=== PATIENT | female | born 1950 | race Caucasian/White ===

== ENCOUNTER → 2017-11-04 10:50 | Outpatient (CLI) | payer MEDICARE, SELFPAY ==
--- NOTE | 2017-11-04 10:58 | XR_ITS ---
XR foot RT min 3V COMPARISON: None HISTORY: Pain in toes TECHNIQUE: AP lateral and oblique views FINDINGS: The tarsal bones metatarsals and phalanges appear intact with no evidence of recent or old fracture. The rather prominent plantar arch. There is spurring of the calcaneus both at the insertion of the Achilles tendon and plantar tendon IMPRESSION: Pes cavus along with calcaneal spurs is noted
== END ==
PROVIDERS: PCP Nurse Practitioner Family; Visit Provider Nurse Practitioner Family
DX: M79.674 Pain in right toe(s) (principal)
CPT/HCPCS: 73630

== ENCOUNTER → 2017-11-09 15:11 | Outpatient (CLI) | payer MEDICARE, SELFPAY ==
--- NOTE | 2017-11-09 15:23 | US_ITS ---
US Arterial Ankle Brachial Ind INDICATION: Nonhealing ulcer right toe, leg pain, wrist pain, claudication, smoker, hypertension ORDERING PHYSICIAN: Sabiha Adorno PATIENT AGE: 67 years TECHNIQUE: Segmental pressures obtained of both right and left leg. These are compared to brachial blood pressure to yield index at each level sampled including summary DIONY. The data sheets from the procedure are available in PACS FINDINGS Rest study only performed today No prior studies available for comparison. Blood pressures reported are in millimeters mercury. RIGHT LEG DIONY = 0.3. Right TBI equals 0.1 Brachial BP: 164 Thigh BP: 59 Calf BP: 50 Ankle PT: 43 Ankle DP : 34 Digit =21 LEFT LEG DIOYN = 0.6 Left TBI equals 0.4 Brachial BPD: 157 Thigh BP: 141 Calf BP: 99 Ankle PT:98 Ankle DP: 79 Digit = 68 Pulses and waveforms: Diminished waveforms and pulses bilaterally right more so than left IMPRESSION: Low ABIs bilaterally right more severe than left as well as low TBIs bilaterally right more severe than left consistent with severe atherosclerotic vascular disease. Suspect a stenosis of the right iliac artery or common femoral artery and stenosis on the left at the distal SFA or popliteal region. CT angiogram may confirm.
== END ==
PROVIDERS: Family Provider Internal Medicine Adolescent Medicine; PCP Nurse Practitioner Family; Visit Provider Nurse Practitioner Family
DX: I70.213 Atherosclerosis of native arteries of extremities with intermittent claudication, bilateral legs (principal)
CPT/HCPCS: 93922

== ENCOUNTER 2017-11-15 14:00 | Outpatient (RCR) | payer MEDICARE, SELFPAY | END 2017-11-15 14:01 | disposition home or self-care (01) | LOC: PT 14:00 | PROVIDERS: Family Provider Internal Medicine Adolescent Medicine; PCP Nurse Practitioner Family; Visit Provider Nurse Practitioner Family | DX: L97.511 Non-pressure chronic ulcer of other part of right foot limited to breakdown of skin (principal); M79.674 Pain in right toe(s) | CPT/HCPCS: 97161; 97597 ==

== ENCOUNTER 2017-11-22 07:22 | Day surgery (SDC) | payer MEDICARE, SELFPAY ==
[2017-11-22] VITALS (15 sets, daily range): BP systolic 115–190; BP diastolic 54–93; PULSE 70–100; RESP 16–24; TEMP 36.2; O2SAT 94–99; BMI 28.1
--- NOTE | 2017-11-22 07:09 | IR_ITS ---
CARDIAC CATHETERIZATION DATE OF CATHETERIZATION PROCEDURES: 1. Left heart catheterization 2. Left ventriculogram 3. Selective coronary angiogram 4. Catheter placement in the right renal artery 5. Right renal artery selective angiogram 6. Catheter placement in the left renal artery 7. Renal artery selective angiogram 8. Catheter placement in the abdominal aorta 9. Abdominal aortography 10. Bilateral iliofemoral angiography 11. Bare-metal stent deployment to the right common iliac artery 12. Post right common iliac artery stent deployment retrograde angiogram 13. Bare-metal stent deployment to the right renal artery 14. Post stent deployment catheter placement in the abdominal aorta 15. Abdominal aortography INDICATION FOR TEST: 1. Coronary artery disease 2. Angina pectoris 3. Peripheral artery disease 4. Abnormal ankle-brachial index 5. Renovascular hypertension 6. Renal artery stenosis 7. Right common iliac artery stenosis Informed consent was obtained prior to the procedure. COMPLICATIONS: None ESTIMATED BLOOD LOSS: Less than 10 ml. TECHNIQUE: One percent lidocaine used to anesthetize the right groin. The right femoral artery was accessed via the Seldinger technique and a 4 Ugandan sheath was placed in the right femoral artery. A JL 4 JR4 catheter were used to perform left heart catheterization left ventriculogram as well as selective renal angiography. At the end of the diagnostic angiogram the therapeutic dose of heparin was administered intravenously and a 7 Ugandan sheath was placed in the right femoral artery. An 8 mm x 29 mm bare-metal Kennedy stent was deployed reducing the stenosis. An additional 10 mm x 19 mm Herculink stent was then placed at the ostium of the right common iliac artery and deployed. Post stent deployment angioplasty was also performed After achieving excellent angiographic results a short 7 Ugandan JACK catheter was used intubate the right renal artery while a 6.5 x 15 mm Herculink stent was deployed at 15 macrina reducing the severe stenosis to 0%. Following the revascularization the pigtail catheter was placed back into the abdominal aorta and abdominal aortography with bilateral iliofemoral angiography was performed. At the end of the procedure the apparatus was removed the groin is reprepped closure changed sheath was removed good hemostasis was achieved using Perclose device patient transferred the postop holding area in stable condition ANGIOGRAPHIC RESULTS: 1. The left main artery has a distal 20-30% stenosis 2. The left anterior descending artery has proximal 20% stenoses mid vessel 60-70% tandem stenosis at a tortuous bend followed by an additional 60% stenosis in the mid segment. 3. The circumflex artery is a large vessel and has an ostial 50% calcified stenosis. The vessel is very tortuous. The first obtuse marginal artery has mid vessel 60-70% stenoses and distal 70-80% stenoses and a bifurcating vessel and proximally 1 mm diameter. The terminal obtuse marginal artery has a proximal 50% followed by a distal 70-80% stenosis 4. The right coronary artery is a nondominant vessel and has proximal 80% stenoses and a distal 80% stenosis in an area that is 2.25 mm in diameter. The entire right coronary artery is a small caliber vessel 5. The ELLIOTT ventriculogram reveals normal 65% with inferior wall hypokinesis 6. The left ventricular end-diastolic pressure 15 mmHg 7. The right renal artery is singular and has a complex proximal eccentric 50% stenosis followed by what appears to be an active thrombus creating a 90% stenosis. Distally the renal arteries are small in caliber in side the parenchyma and have a vasculopathic appearance 8. The left renal artery singular and has a proximal 80% concentric stenosis. Distally the ve
--- NOTE | 2017-11-22 07:24 | CA_ITS ---
PROCEDURE: 2-D M-mode and color Doppler study INDICATIONS FOR THE TEST: Chest pain COPD Heart Murmur Tobacco SmokingX Palpitations Fatigue Syncope EdemaX Hypertension Diabetes MellitusX Rheumatic Fever SOB WADE Obesity Hyperlipidemia Family History HDX Additional History ABN EKG PATIENT INFORMATION HEIGHT: 62 WEIGHT:157 GENDER: Female B/P:166/76 2-D/M-MODE INTERPRETATION: 2-D MEASUREMENTS OBSERVED VALUES IN CMS Right Ventricular Dimension (RVDd) 1.5 Interventricular Septum (Thickness)(IVsd) 1.0 Left Ventricular Internal Dimensions(LVIDd) 5.5 Left Ventricular Posterior Wall (Thickness)(LVPWd) 1.0 Aortic Root 2.6 Aortic Cusp Separation 1.6 Left Atrial Dimensions (LAD) 2.4 2D 1. Left atrium is normal size, left ventricle is normal size, there is no concentric left ventricular hypertrophy, visually estimated ejection fraction 55% with no obvious regional wall motion abnormality. 2. The right atrium and right ventricle are normal size and contractility. 3. The aortic valve is minimally thickened and fibrosed. 4. The mitral and tricuspid valvular grossly normal. 5. The pulmonic valve is poorly visualized. 6. No significant pericardial effusion noted. DOPPLER INTERROGATION: Doppler interrogation of the aortic, mitral and tricuspid valvular presence of mild mitral and tricuspid regurgitation, tricuspid and jet velocity insufficient for calculation of the right ventricular systolic pressure, diastolic parameters are inconclusive. CONCLUSION: 1. Normal left ventricular size, preserved left ventricular systolic function, visually estimated ejection fraction 55% with no obvious regional wall motion abnormality, diastolic parameters are inconclusive. 2. Mild mitral and tricuspid regurgitation 3. No significant pericardial effusion noted.
[2017-11-22 08:49] LABS: Blood Urea Nitrogen 53 mg/dL (7-18); Carbon Dioxide 20 mmol/L (21.0-32.0); Chloride 107 mmol/L (98-107); Creatinine Clearance Estimated 35 mL/min (0-300); Creatinine,Serum 1.75 mg/dL (0.55-1.02); Estimated Glomerular Filt Rate 29 ml/min (>60); GFR (African American) 35 ML/MIN (>60); Glucose 122 mg/dL (74-106); Sodium 142 mmol/L (136-145)
[2017-11-22 08:51] LABS: Basophils % 0.2 % (0.1-2.0); Eosinophils # 0.2 K/mm3 (0.0-0.4); Eosinophils % 1.4 % (0.1-12.0); Hematocrit 29.7 % (37.0-47.0); Hemoglobin 9.5 g/dL (12.2-16.2); Lymphocytes # 1.6 K/mm3 (0.7-4.5); Lymphocytes % 13.1 K/mm3 (10-50); Mean Corpuscular HGB Conc 31.9 g/dL (31.8-35.4); Mean Corpuscular Hemoglobin 31.1 pg (27.0-31.2); Mean Corpuscular Volume 97.5 fl (81-99); Mean Platelet Volume 8.5 fl (7.4-10.4); Monocytes # 0.4 K/mm3 (0.1-1.0); Monocytes % 3.4 % (1.7-9.3); Neutrophils # 10.3 K/mm3 (1.8-7.8); Neutrophils % 81.9 % (37.0-80.0); Platelet Count 236 K/mm3 (142-424); Red Blood Count 3.04 M/mm3 (4.20-5.40); Red Cell Distribution Width 14.5 % (11.5-17.5); White Blood Count 12.6 K/mm3 (4.8-10.8)
[2017-11-22 14:26] LABS: CATHL Activated Clotting Time 234 SEC (74-125)
[2017-11-22 14:26] LABS: CATHL Activated Clotting Time 250 SEC (74-125)
== END 2017-11-22 14:17 | disposition home or self-care (01) ==
PROVIDERS: Family Provider Internal Medicine Adolescent Medicine; PCP Nurse Practitioner Family; Visit Provider Internal Medicine
DX: I70.211 Atherosclerosis of native arteries of extremities with intermittent claudication, right leg (principal); E11.621 Type 2 diabetes mellitus with foot ulcer; I87.1 Compression of vein; L97.519 Non-pressure chronic ulcer of other part of right foot with unspecified severity; E11.42 Type 2 diabetes mellitus with diabetic polyneuropathy; Z82.49 Family history of ischemic heart disease and other diseases of the circulatory system; Z72.0 Tobacco use; I10 Essential (primary) hypertension; I70.223 Atherosclerosis of native arteries of extremities with rest pain, bilateral legs; I25.10 Atherosclerotic heart disease of native coronary artery without angina pectoris; M79.89 Other specified soft tissue disorders
CPT/HCPCS: 36252; 37221; 37236; 75630; 75716; 80048; 85025; 85347; 93306; 93458; 99152; 99153; C1725; C1760; C1769; C1876; C1894; J1644; Q9966; Q9967

== ENCOUNTER → 2017-11-23 08:09 | Outpatient (CLI) | payer MEDICARE, SELFPAY ==
[2017-11-23 10:53] LABS: Anion Gap 19.1 mEq/L (5-15); Blood Urea Nitrogen 41 mg/dL (7-18); Carbon Dioxide 19 mmol/L (21.0-32.0); Chloride 108 mmol/L (98-107); Creatinine,Serum 1.78 mg/dL (0.55-1.02); Estimated Glomerular Filt Rate 29 ml/min (>60); GFR (African American) 35 ML/MIN (>60); Glucose 190 mg/dL (74-106); Potassium 4.1 mmoL/L (3.5-5.1); Sodium 142 mmol/L (136-145)
== END ==
PROVIDERS: Visit Provider Nurse Practitioner Family
DX: Z95.820 Peripheral vascular angioplasty status with implants and grafts (principal)
CPT/HCPCS: 36415; 80048

== ENCOUNTER → 2017-11-24 08:50 | Outpatient (CLI) | payer MEDICARE, SELFPAY ==
--- NOTE | 2017-11-24 14:01 | HMH.ANESCL ---
[facility] Anesthesia Checklist - Patient Identification Patient Identification: Arm Band - Structural Data Admitted From: Home Planned Operative Procedure/s: right 4th and 5th toe amputation Consent for Planned Operative Procedure(s) Verified: Yes Verified Documents: Surgical Consent, History and Physical - NPO Status Verified Time NPO: 00:00 - Additional verifications Anesthesia Reactions: No - Airway Assessment C-Spine Mobility Assessed: Yes (mp1) TMJ Mobility Assessed: Yes Dentition: Edentulous - Neurological Assessment Level of Consciousness: Awake, Alert - Anesthesia Plan Anesthesia Risk discussed: Yes Anesthesia Plan: Verified ASA Class: III Anesthesia Type: MAC [facility] Anesthesia HX I have reviewed the patient's past medical history: Yes Medical History: Reports:: Diabetes Mellitus Type 2, Hypertension, Peripheral Artery Disease Denies:: Cancer, Diabetes Mellitus Type 1, Internal Pacemaker, MRSA, Seizures Other Medical History: Reports: Sinus Problems Laterality Cases: Right: Arthroscopy Shoulder, Total Hip Replacement Other Surgeries: No: Pacemaker Amputation: No Fractures: No *Family Hx:: Diabetes, Hyperlipidemia, Hypertension
--- OUTSIDE RECORDS SUMMARY | 2025-01-07 15:12 | XMS_ITS | Referral Summary ---
Author Organization [employer] Address [address] [place] [address] Care Team Providers Care Water Pump Installer Name Role Phone Ethan Lewis MD Primary Care Provider [phone] Allergies No known active allergies Medications insulin glargine (LANTUS, SEMGLEE) 100 unit/mL injection Inject 14 Units subcutaneously nightly Use as directed . Active atorvastatin (LIPITOR) 80 MG tablet Take 80 mg by mouth nightly . Active aspirin 81 MG EC tablet Take 81 mg by mouth daily. Active losartan (COZAAR) 50 MG tablet Take 50 mg by mouth daily. Active metoprolol succinate (TOPROL-XL) 25 MG 24 hr tablet Take 25 mg by mouth daily. Active clopidogreL (PLAVIX) 75 mg tablet Take 75 mg by mouth daily. Active Active Problems Problem Noted Date Diagnosed Date Acute renal failure (ARF) 07/04/2022 Sepsis with multi-organ dysfunction 07/03/2022 Diabetes mellitus COPD (chronic obstructive pulmonary disease) CHF (congestive heart failure) Hx of CABG Overview (07/03/2022): x3 History of atrial flutter Renal insufficiency Acute renal failure with oliguria Social History Tobacco Use Types Packs/Day Years Used Date Smoking Tobacco: Unknown PRAPARE - Transportation Answer Date Re corded In the past 12 months, has l ack of transportation kept you from medical appointments or from getting medications? No 07/11/2022 Lack of Transportation (Non-Medical) Not on file 07/11/2022 Housing Stability Vital Sign Answer Josué e Recorded In the last 12 months, was t here a time when you were not able to pay the mortgage or rent on time? No 07/11/2022 In the last 12 months, how many places have you lived? Not on file 07/11/2022 In the last 12 months, was t here a time when you did not have a steady place to sleep or slept in a retirement (including now)? 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 Gender Identity Not on file Sexual Orientation Not on file Last Filed Vital Signs Vital Sign Reading Time Taken Comments Blood Pressure 37/15 07/16/2022 2:02 AM EST Pulse 0 07/16/2022 3:45 AM EST Temperature 36.2 C (97.2 F) 07/15/2022 4:00 AM EST Respiratory Rate 12 07/16/2022 3:45 AM EST Oxygen Saturation 82% 07/16/2022 3:15 AM EST Inhaled Oxygen Concentration 40% 07/15/2022 1 2:15 PM EST Weight 84 kg (185 lb 3 oz) 07/14/2022 4:00 AM ES T Height 157.5 cm (5' 2 ) 07/03/2022 12:00 AM EST Body Mass Index 33.87 07/03/2022 12:00 AM EST Plan of Treatment Not on [place] [address] [place] [address] PPO MAP Advance Directives For more information, please contact: [phone] * DNR - Comfort Measures (Latest Code Status on File) Date Activated Date Inactivated Comments 07/15/2022 10:33 AM 07/16/2022 9:00 AM If no pul se: NO intervention If has pulse: NO Intubation, NO Chest Compressions, NO Cardioversion, NO ACLS meds; relieve pain and suffering with medications by any route. Call attending or palliative care for comfort orders. * DNR - Full Scope of Treatment Date Activated Date Inactivated Comments 07/09/2022 10:45 AM 07/15/2022 10:30 AM If no pul se: NO intervention If has pulse: Use intubation, mechanical ventilation, defibrillation, ACLS medications, or cardioversion as indicated. Call HIDE COOKING OPERATOR * Full Code Date Activated Date Inactivated Comments 07/03/2022 12:13 AM 07/09/2022 10:44 AM Care Teams Water Pump Installer Relationship Specialty Start Date End Date Ethan Lewis MD [address] [facility] [place] [address] PCP - General Adolescent Medicine 07/02/22
--- OUTSIDE RECORDS SUMMARY | 2025-01-07 15:12 | XMS_ITS | Clinical Summary ---
Author Organization [employer] Address [address] [place] [address] Care Team Providers Care Eap Specialist Name Role Phone Ethan Lewis MD Primary Care Provider [phone] Allergies No known active allergies Medications insulin [...] place to sleep or slept in a fci (including now)? 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 Call STREET LIGHT WIRER * Full Code Date Activated Date Inactivated Comments 07/03/2022 12:13 AM 07/09/2022 10:44 AM Care Teams Eap Specialist Relationship Specialty Start Date End Date Ethan Lewis MD [address] [facility] [place] [address] PCP - General Adolescent Medicine 07/02/22
--- OUTSIDE RECORDS SUMMARY | 2025-01-07 15:12 | XMS_ITS | Clinical Summary ---
Author Organization [facility] Address [address] [place] [address] Phone Care Team Providers Care Consumer Education Specialist Name Role Phone Unavailable Unavailable Conditions or Problems No information available. Medications No information available. Medications Administered No information available. Allergies, Adverse Reactions, Alerts No information available. Results No information available. Plan of Care No information available. Procedures No information available. Vital Signs No information available. Immunizations No information available. Advance Directives No information available.
--- OUTSIDE RECORDS SUMMARY | 2025-01-07 15:12 | XMS_ITS | Clinical Summary ---
Author Organization Healthcare [place] [facility] [place] [address] Care Team Providers Care Preventive Maintenance Engineer Name Role Phone Sabiha Adorno PAMELLA Primary Care Provider [phone] Family History Medical History Relation Name Comments Conversions - Other Brother 1 CAD (cor onary artery disease), habematolel coronary artery Diabetes Brother 2 Pneumonia Father Diabetes Mother Diabetes Sister 1 Menorrhagia Sister 2 Relation Name Status Comments Brother 1 Brother 2 Father Mother Sister 1 Sister 2 Social History Tobacco Use Types Packs/Day Years Used Date Smoking Tobacco: Former Alcohol Use Standard Drinks/Week Comments No 0 (1 standard drink = 0.6 oz pur e alcohol) Comments Unknown Sex and Gender Information Value Date Recorded Sex Assigned at Not on file Legal Sex Female 6:54 PM EDT Gender Identity Not on file Sexual Orientation Not on file Last Filed Vital Signs Vital Sign Reading Time Taken Comments Blood Pressure 147/54 02/28/2019 2:20 PM EDT Pulse 68 02/28/2019 2:20 PM EDT Temperature - - Respiratory Rate - - Oxygen Saturation - - Inhaled Oxygen Concentration - - Weight 67.2 kg (148 lb 3.1 oz) 02/28/2019 2:20 P M EDT Height 157.5 cm (5' 2 ) 08/17/2018 9:28 AM EST Body Mass Index 27.1 08/17/2018 9:28 AM EST Plan of Treatment Not on file Insurance [employer] Care Teams Preventive Maintenance Engineer Relationship Specialty Start Date End Date Sabiha Adorno APRN [address] [place] [address] PCP - General 12/12/20
--- OUTSIDE RECORDS SUMMARY | 2025-01-07 15:12 | XMS_ITS | Data Portability ---
Author Organization [facility] [employer] [place] [facility] Address [address] [place] [address] Assessment No assessment recorded. Plan of Treatment Reminders Order Date Submit Date Provider Last Modified By Organization Details Last Modified Time Details Appointments None record ed. Lab None record ed. Referral None record ed. Procedures None record ed. Surgeries None record ed. Imaging None record ed. Medication Orders None record ed. Patient TargetsNo targets recorded. Patient InstructionsNo instructions recorded. Reason for Referral None Reported. Problems Name Problem SNOMED Code Status Onset Date Resolution Date Notes Provider Name and Address Organization Details Recorded Time Megalobl astic anemia 01665827 Completed 201704/29/2018 Problem Code: D53.1; Problem Code Type: ICD-10; Not Available [facility] 2 22:40:39 Anemia of chronic disease 481368870 Active 2017 Problem Code: D63.8; Problem Code Type: ICD-10; Not Available [facility] 2 22:40:39 Iron deficien cy anemia secondar y to inadequa te dietary iron intake 492343760 Completed 201704/29/2018 Problem Code: D50.8; Problem Code Type: ICD-10; Not Available [facility] 2 22:40:39 Secondar y diabetes mellitus 0151078 Completed 201711/10/2017 Problem Code: E08.59; Problem Code Type: ICD-10; Not Available [facility] 2 22:40:39 Foot ulcer due to type 2 diabetes mellitus 84706895065 00 Completed 201611/10/2017 Problem Code: E11.621; Problem Code Type: ICD-10; Not Available [facility] 2 22:40:39 Uncontro lled type 2 diabetes mellitus 095762176 Completed 201604/27/2017 Not Available [facility] 2 22:40:40 Mixed hyperlip idemia 821503017 Active 2017 Problem Code: E78.2; Problem Code Type: ICD-10; Not Available [facility] 2 22:40:40 Hyperten sive disorder 89296363 Active 2016 Problem Code: I10; Problem Code Type: ICD-10; Not Available [facility] 2 22:40:40 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 077238396 Completed 201711/08/2017 Problem Code: I70.219; Problem Code Type: ICD-10; Not Available [facility] 2 22:40:40 Pain in right foot 02329789661 9107 Completed 201703/31/2020 Problem Code: M79.671; Problem Code Type: ICD-10; Not Available [facility] 2 22:40:40 Pain in toe 233928827 Completed 201703/31/2020 Not Available [facility] 2 22:40:40 Pain in toe 773988868 Completed 201703/31/2020 Not Available [facility] 2 22:40:41 Chronic kidney disease stage 1 260882049 Active 2017 Problem Code: N18.1; Problem Code Type: ICD-10; Not Available [facility] 2 22:40:41 Chronic kidney disease stage 3 515194967 Completed 201703/30/2018 ABO43Iwl es: 'N18.3'; Not Available [facility] 2 22:40:41 Acute cystitis 76195295 Completed 201604/20/2017 Problem Code: N30.00; Problem Code Type: ICD-10; Not Available [facility] 2 22:40:41 Urinary tract infectio us disease 85343446 Completed 201706/20/2018 Problem Code: N39.0; Problem Code Type: ICD-10; Not Available [facility] 2 22:40:41 Acute cystitis 47395779 Completed 201704/13/2018 Problem Code: N30.00; Problem Code Type: ICD-10; Not Available [facility] 2 22:40:41 Acute cystitis 09802732 Completed 201705/23/2018 Problem Code: N30.00; Problem Code Type: ICD-10; Not Available [facility] 2 22:40:41 Urinary tract infectio us disease 36217303 Active 2019 Problem Code: N39.0; Problem Code Type: ICD-10; Not Available [facility] 2 22:40:41 Urinary tract infectio us disease 09246328 Completed 201903/31/2020 Problem Code: N39.0; Problem Code Type: ICD-10; Not Available [facility] 2 22:40:41 Dysuria 58765715 Active 2019 Problem Code: R30.0; Problem Code Type: ICD-10; Not Available [facility] 2 22:40:42 Dysuria 92027373 Completed 201707/21/2018 Problem Code: R30.0; Problem Code Type: ICD-10; Not Available [facility] 2 22:40:42 Dysuria 36270495 Completed 201903/31/2020 Problem Code: R30.0; Problem Code Type: ICD-10; Not Available [facility] 2 22:40:42 Endocrin e/metabo lic screenin g Completed 201606/26/2017 Problem Code: Z13.228; Problem Code Type: ICD-10; Not Available [facility] 2 22:40:42 Influenz a vaccine needed 00497975287 Completed 201803/31/2020 Problem Code: Z23; Problem Code Type: ICD-10; Not Available [facility] 2 22:40:42 Influenz a vaccine needed 25152301702 Active 2020 Problem Code: Z23; Problem Code Type: ICD-10; Not Available [facility] 2 22:40:43 Acute cystitis 37443574 Completed 201706/23/2018 Problem Code: N30.00; Problem Code Type: ICD-10; Not Available [facility] 2 22:40:44 Atherosc lerosis of arteries of the extremit ies 75195460 Completed 201711/10/2017 Not Available [facility] 2 22:40:44 Benign essentia l hyperten dilshad 3238620 Completed 201604/27/2017 Problem Code: 401.1; Problem Code Type: ICD-9; Not Available [facility] 2 22:40:44 Dysuria 93009741 Completed 201903/31/2020 Problem Code: R30.0; Problem Code Type: ICD-10; Not Available [facility] 2 22:40:45 Gangreno us disorder 396023337 Completed 201711/10/2017 Problem Code: 785.4; Problem Code Type: ICD-9; Not Available [facility] 2 22:40:45 Traumati c amputati on of toe 96540446 Completed 201705/29/2018 Problem Code: 895.0; Problem Code Type: ICD-9; Not Available [facility] 2 22:40:45 Traumati c amputati on, multiple toes 705043802 Completed 201705/29/2018 Problem Code: S98.211S ; Problem Code Type: ICD-10; Not Available [facility] 2 22:40:46 Thyroid disorder screenin g Completed 201606/26/2017 Problem Code: V77.0; Problem Code Type: ICD-9; Not Available [facility] 2 22:40:46 Thyroid disorder screenin g Completed 201603/20/2017 Problem Code: V77.0; Problem Code Type: ICD-9; Not Available [facility] 2 22:40:46 Endocrin e/metabo lic screenin g Completed 201603/20/2017 Problem Code: Z13.29; Problem Code Type: ICD-10; [facility] Notes:*Problem Name: 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 Procedures Surgical History Date Name Laterality Status Provider Name and Address Organization Details Recorded Time 09/01/19 19 Int jaci art used for cabg completed Not Available [facility] 04/06/2022 22:56:07 01/20/20 17 hysterectomy completed Not Available [facility] 022 22:56:09 Imaging Results None recorded. Procedure Notes None recorded. Medical Equipment None Reported. Medications Name Sig Start Date Stop Date Status Note LastModified by Organization Details LastModified Time atorvastati n 40 mg tablet Take 1 tablet(s) by mouth daily 12/19 completed Not Available Not Available Not Available Keflex 500 mg capsule 2 po bid 01/03 completed Not Available Not Available Not Available lisinopril 20 mg tablet Take 1 tablet by mouth daily 08/17 completed Not Available Not Available Not Available Pyridium 100 mg tablet one by mouth every 8 hours 08/08 completed Not Available Not Available Not Available Lantus U-100 Insulin 100 unit/mL subcutaneou s solution 20 units [facility] 06/26 completed Not Available Not Available Not Available Plavix 75 mg tablet take 1 tablet (75 mg) by oral route once daily 2019 active Not Available Not Available Not Avai lable ciprofloxac in 500 mg tablet take 1 tablet (500 mg) by oral route 2 times per day 2019 active Not Available Not Available Not Avai lable sulfamethox azole 800 mg-trimetho prim 160 mg tablet take 1 tablet by oral route every 12 hours for 14 days 03/31 completed Not Available Not Available Not Available fenofibrate micronized 200 mg capsule one po q hs 12/19 completed Not Available Not Available Not Available tramadol 50 mg tablet 1 po q 6 hours prn 01/03 completed Not Available Not Available Not Available Silvadene 1 % topical cream Apply sufficien t amount to affected area bid 01/03 completed Not Available Not Available Not Available Diflucan 100 mg tablet one po today and again in 5 days and when the antibioti c is finished. 07/21 completed Not Available Not Available Not Available ferrous sulfate 325 mg (65 mg iron) tablet Take 1 tablet BID 09/26 completed Not Available Not Available Not Available lisinopril 10 mg tablet Take 1 tablet(s) by mouth daily 10/27 completed Not Available Not Available Not Available folic acid 1 mg tablet Take 1 tablet(s) by mouth daily 09/26 completed Not Available Not Available Not Available Aspir-81 mg tablet,timmy yed release take 1 tablet (81 mg) by oral route once daily 2019 active Not Available Not Available Not Avai lable ibuprofen 600 mg tablet 1 po daily 05/09 completed Not Available Not Available Not Available Norvasc 1/2 of 50 mg daily 2019 active Not Available Not Available Not Avai lable Lantus U-100 Insulin 2019 active Not Available Not Available Not Avai lable metoprolol tartrate (bulk) 2019 active Not Available Not Available Not Avai lable Insulin Syringe 1 mL 29 gauge x 1/2 use qhs in administe ring insulin 06/18 completed Not Available Not Available Not Available Basaglemile KwikPen U-100 Insulin 100 unit/mL (3 mL) subcutaneou s 20 units SQ QHS 11/28 completed Not Available Not Available Not Available Vitals None Recorded Social History None recorded. Functional Status None recorded. Mental Status None recorded. Family History Relationship Description Onset Age of this Age Resolved Age Notes LastModified by Organization Details LastModified Time Unspecified Relation Family history of Myocardial infarction Relati ve: ''; [email or web address] Not available 04/06/2022 23:04:06 Notes:*Procedure Description : Documented family medical history in son*Relative: Son Medical History Condition Response Diabetes Y Kidney Disease Y Gynecological HistoryNo gynecological history recorded. Obstetrics History GPAL:G 0 P 0 0 0 0 Immunizations Vaccine Type Date Status Note Provider Nam e and Address Organization Details Recorded Time Influenza, split virus, quadrivalent, preservative 8 completed Not Available [facility] 04/07/2022 00:03:40 Influenza, split virus, quadrivalent, PF 1 completed Not Available [facility] 04/07/2022 00:03:40 Influenza, split virus, trivalent, preservative 7 completed Not Available [facility] 04/07/2022 00:03:40 Influenza, MDCK, quadrivalent, PF 0 completed Not Available [facility] 04/07/2022 00:03:40 Influenza, MDCK, quadrivalent, preservative 9 completed Not Available [facility] 04/07/2022 00:03:40 Influenza, split virus, quadrivalent, PF 2 completed JACK tse [facility] [employer] [facility] 06/11/2022 11:24:04 Past Encounters Encounter ID Performer Location Encounter Start Date Encounter Closed Date Diagnosis/Indication Diagnosis SNOMED-CT Code Diagnosis ICD10 Code Diagnosis Note [id number] Ashia Hare[address] [address] 06/11/2022 11:02:57 06/11/2022 11:31:19 Administration of influenza vaccine 39357832 Z23 Health Concerns Section Related Observation LastModified by Organization Detai ls LastModified Time None Recorded Concern Status LastModified by Organization Details LastModified Time None Recorded Advance Directives Directive None Recorded Payers Insurance Date Sequence Insurance Name Policy Number Policy Pierce Covered Member ID Pierce Member ID Guarantor Name 08/27/2022 1 [place]MEDICARE REPLACEMENT HMO) [id number] Tammy Mauro [id number] Tammy Mauro OBGyn Episode No OBEpisode recorded.
--- OUTSIDE RECORDS SUMMARY | 2025-01-07 15:12 | XMS_ITS | Encounter Summary ---
Author Organization Healthcare Address [address] [place] [address] Care Team Providers Care Occ Ther Name Role Phone Sabiha Adorno APRN Primary Care Provider [phone] Encounter Details Date Type Department Care Team (Late st Contact Info) Description 07/10/2022 Lab Requisition [facility] [address] [place] [address] Encounter for general adult medical examination without abnormal findings Social History Tobacco Use Types Packs/Day Years Used Date Smoking Tobacco: Former Alcohol Use Standard Drinks/Week Comments No 0 (1 standard drink = 0.6 oz pur e alcohol) Comments Unknown Sex and Gender Information Value Date Recorded Sex Assigned at Not on file Legal Sex Female 6:54 PM EDT Gender Identity Not on file Sexual Orientation Not on file documented as of this encounter Plan of Treatment Not on file documented as of this encounter Visit Diagnoses Diagnosis Encounter for general adult medical examination without abnormal findings documented in this encounter Care Teams Occ Ther Relationship Specialty Start Date End Date Sabiha Adorno APRN [address] [place], [place] [id number] PCP - General 12/12/20 documented as of this encounter
== END ==
LOC: LAB 01-07 15:10
PROVIDERS: PCP Podiatrist; Visit Provider Podiatrist
DX: Y99.9 Unspecified external cause status (principal)
CPT/HCPCS: 87070; 87205

== ENCOUNTER → 2017-12-08 13:33 | Outpatient (CLI) | payer MEDICARE, SELFPAY ==
--- NOTE | 2017-12-08 13:34 | XR_ITS ---
XR foot wt bearing RT 3V HISTORY: Follow-up amputation ITS.REASON: STATUS POST FOOT SURGERY ORDERING PHYSICIAN: Ethel Mcqueen DPM PATIENT AGE: 67 years COMPARISON: 11/24/2017 FINDINGS: Status post mid metatarsal amputation of the fourth and fifth metatarsals. No bony erosive process evident. There is a prominent calcaneal spur 13 mm. No soft tissue gas or other significant anomalies. Mild osteoarthritic changes are present first metatarsophalangeal joint. IMPRESSION: No change status post mid metatarsal amputation at the fourth and fifth metatarsals
[2017-12-08 14:44] LABS: Basophils # 0.1 K/mm3 (0-0.2); Basophils % 0.7 % (0.1-2.0); Eosinophils # 0.6 K/mm3 (0.0-0.4); Eosinophils % 7.4 % (0.1-12.0); Hematocrit 33.4 % (37.0-47.0); Lymphocytes # 2.2 K/mm3 (0.7-4.5); Lymphocytes % 29.6 K/mm3 (10-50); Mean Corpuscular HGB Conc 32.8 g/dL (31.8-35.4); Mean Corpuscular Hemoglobin 31.9 pg (27.0-31.2); Mean Corpuscular Volume 97.1 fl (81-99); Mean Platelet Volume 7.8 fl (7.4-10.4); Monocytes # 0.3 K/mm3 (0.1-1.0); Monocytes % 4.1 % (1.7-9.3); Neutrophils # 4.4 K/mm3 (1.8-7.8); Neutrophils % 58.2 % (37.0-80.0); Platelet Count 318 K/mm3 (142-424); Red Blood Count 3.44 M/mm3 (4.20-5.40); Red Cell Distribution Width 13.7 % (11.5-17.5); White Blood Count 7.5 K/mm3 (4.8-10.8)
[2017-12-08 16:55] LABS: Erythrocyte Sedimentation Rate 81 mm/hr (0-30)
[2017-12-08 17:20] LABS: Alanine Aminotransferase 16 U/L (12-78); Albumin Level 3.2 gm/dL (3.4-5.0); Albumin/Globulin Ratio 0.8 (1.1-1.8); Alkaline Phosphatase 96 U/L (46-116); Anion Gap 11.1 mEq/L (5-15); Aspartate Amino Transferase 18 U/L (15-37); Bilirubin,Total 0.1 mg/dL (0.2-1.0); Blood Urea Nitrogen 27 mg/dL (7-18); C-Reactive Protein 0.4 mg/L (0.0-0.9); Calcium 8.8 mg/dL (8.5-10.1); Carbon Dioxide 29 mmol/L (21.0-32.0); Chloride 104 mmol/L (98-107); Creatinine,Serum 1.48 mg/dL (0.55-1.02); Estimated Glomerular Filt Rate 35 ml/min (>60); GFR (African American) 43 ML/MIN (>60); Glucose 236 mg/dL (74-106); Potassium 4.1 mmoL/L (3.5-5.1); Sodium 140 mmol/L (136-145); Total Protein,Serum 7.2 gm/dL (6.4-8.2)
[2017-12-08 17:26] LABS: Hemoglobin A1C 7.3 % (0.0-7.0)
== END ==
PROVIDERS: Visit Provider Podiatrist
DX: E11.69 Type 2 diabetes mellitus with other specified complication (principal); M86.9 Osteomyelitis, unspecified; Z98.890 Other specified postprocedural states
CPT/HCPCS: 36415; 73630; 80053; 83036; 85025; 85651; 86140

== ENCOUNTER → 2017-12-28 06:36 | Outpatient (CLI) | payer MEDICARE, SELFPAY ==
--- NOTE | 2017-12-28 06:43 | NM_ITS ---
CARDIOLITE SPECT MYOCARDIAL PERFUSION SCAN, REST AND STRESS: EXERCISE STRESS [facility] REVIEW QGS EF AND WALL MOTION EVALUATION: QPS - PERFUSION EVALUATION HISTORY: CAD, SOA DOSE: 10.34 mCi technetium 99m mibi intravenously at rest followed by 29.8 mCi technetium 99m mibi following the intravenous ministration of 0.4 mg of Lexiscan. Resting blood pressure is 146/72. Stress blood pressure 180/90. FINDINGS: Ejection fraction is calculated to be 68. Stress images reveal decreased activity in a portion of the lateral wall which appears to normalize with rest. Gated images calculated ejection fraction of 68% with normal wall motion. IMPRESSION: Reversible ischemia in the lateral wall. Normal ejection fraction normal wall motion. Moderate risk stress test
--- NOTE | 2017-12-28 07:50 | HMH.ITSHM ---
BLOOD PRESSURE MED IBUPROFEN ANTIBIOTIC INSULIN
--- NOTE | 2017-12-28 09:24 | HMH.ITSHM ---
blood pressure med ibuprofin antibiotic insulin
== END ==
PROVIDERS: Family Provider Internal Medicine Adolescent Medicine; Visit Provider Internal Medicine
DX: R06.02 Shortness of breath (principal); I25.10 Atherosclerotic heart disease of native coronary artery without angina pectoris; R00.0 Tachycardia, unspecified; R94.31 Abnormal electrocardiogram [ECG] [EKG]
CPT/HCPCS: 78452; 93017; A9502; J2785

== ENCOUNTER → 2018-01-12 11:09 | Outpatient (CLI) | payer MEDICARE, SELFPAY ==
[2018-01-12 12:34] LABS: Erythrocyte Sedimentation Rate 116 mm/hr (0-30)
[2018-01-12 13:04] LABS: Alanine Aminotransferase 13 U/L (12-78); Albumin/Globulin Ratio 0.8 (1.1-1.8); Alkaline Phosphatase 122 U/L (46-116); Anion Gap 14.8 mEq/L (5-15); Aspartate Amino Transferase 18 U/L (15-37); Bilirubin,Total 0.3 mg/dL (0.2-1.0); Blood Urea Nitrogen 20 mg/dL (7-18); C-Reactive Protein 3.5 mg/L (0.0-0.9); Calcium 8.9 mg/dL (8.5-10.1); Carbon Dioxide 24 mmol/L (21.0-32.0); Chloride 110 mmol/L (98-107); Estimated Glomerular Filt Rate 28 ml/min (>60); GFR (African American) 34 ML/MIN (>60); Globulin 3.7 gm/dl (1.3-3.2); Glucose 106 mg/dL (74-106); Potassium 3.8 mmoL/L (3.5-5.1); Sodium 145 mmol/L (136-145); Total Protein,Serum 6.7 gm/dL (6.4-8.2)
== END ==
PROVIDERS: Visit Provider Podiatrist
DX: Z98.890 Other specified postprocedural states (principal); E11.8 Type 2 diabetes mellitus with unspecified complications
CPT/HCPCS: 36415; 80053; 85651; 86140; 97605

== ENCOUNTER → 2018-01-16 09:31 | Outpatient (CLI) | payer MEDICARE, SELFPAY ==
--- NOTE | 2018-01-16 09:34 | MR_ITS ---
MR foot RT wo con HISTORY: Recent amputation of the fourth and fifth toes. Evaluate for osteomyelitis in this patient was scheduled skin graft to be performed ITS.REASON: rule out osteomyelitis ORDERING PHYSICIAN: Ethel Mcqueen DPM PATIENT AGE: 67 years Comparison: 12/08/2017 TECHNIQUE: Standard multiplanar multiecho sequences are performed without contrast. Gadolinium was not utilized secondary to patient's impaired renal function FINDINGS: There has been amputation of the mid shaft of the fourth and fifth metatarsals. No abscess or fistulous tract is evident. There is very slight increased T2 signal at the distal stomach above the fifth metatarsal. There is slight increased T1 and T2 signal at the distal stump of the fourth metatarsal not having a typical appearance for osteomyelitis. No other significant anomalies are evident. IMPRESSION: Status post amputation at the mid shaft of the fourth and fifth metatarsals. There is very slight increased T2 signal at the distal aspect of the fifth metatarsal stump. This area is very small area of question clinical significance and could very well be reactive/inflammatory in nature from the recent amputation. Unfortunately, osteomyelitis cannot be excluded based on the imaging findings
== END ==
PROVIDERS: Family Provider Internal Medicine Adolescent Medicine; PCP Nurse Practitioner Family; Visit Provider Podiatrist
DX: I96 Gangrene, not elsewhere classified (principal); I73.9 Peripheral vascular disease, unspecified; M86.9 Osteomyelitis, unspecified
CPT/HCPCS: 73718; 97605

== ENCOUNTER → 2018-02-10 09:12 | Outpatient (CLI) | payer MEDICARE, SELFPAY ==
--- NOTE | 2018-02-10 | CI_ITS ---
Cerebrovascular Exam Indications: 780.4 Dizziness and giddiness. IMPRESSIONS 1. The bilateral vertebral arteries are patent with normal antegrade flow. 2. Study suggests 20-49% stenosis involving the right internal carotid artery and the left internal carotid artery, upper end of scale. Carotid duplex study. Complete study and Doppler flow study including spectral analysis, color and virk scale imaging. Height: Height: 157.5cm. Height: 62in. Weight: Weight: 68.9kg. Weight: 151.7lb. Body mass index: BMI: 27.8kg/m^2. Body surface area: BSA: 1.76m^2. Location: Vascular laboratory. Patient status: Outpatient. Tables: Arterial flow: + +--------+--------+ Location V sys V ed + +--------+--------+ Right CCA - proximal 105cm/s 14.9cm/s + +--------+--------+ Right CCA - distal 64cm/s 15.4cm/s + +--------+--------+ Right ECA 148cm/s -------- + +--------+--------+ Right ICA - proximal 106cm/s 25.3cm/s + +--------+--------+ Right ICA - mid 117cm/s 25.3cm/s + +--------+--------+ Right ICA - distal 131cm/s 37.5cm/s + +--------+--------+ Right vertebral 62.9cm/s -------- + +--------+--------+ Left CCA - proximal 102cm/s 18.3cm/s + +--------+--------+ Left CCA - distal 88.2cm/s 22.7cm/s + +--------+--------+ Left ECA 93.7cm/s -------- + +--------+--------+ Left ICA - proximal 78.6cm/s 23.6cm/s + +--------+--------+ Left ICA - mid 93cm/s 30.8cm/s + +--------+--------+ Left ICA - distal 88cm/s 29.5cm/s + +--------+--------+ Left vertebral 69.8cm/s -------- + +--------+--------+ Velocity ratios: + + + + + + Right, V sys Right, V ed Left, V sys Left, V ed + + + + + + Max ICA/dist CCA 2.05 2.44 1.05 1.36 + + + + + + (Report amended ) Electronically signed by: Ziggy Ruiz [id number]
== END ==
PROVIDERS: Family Provider Internal Medicine Adolescent Medicine; PCP Nurse Practitioner Family; Visit Provider Thoracic Surgery (Cardiothoracic Vascular Surgery)
DX: R42 Dizziness and giddiness (principal)
CPT/HCPCS: 93880

== ENCOUNTER → 2018-03-13 08:54 | Outpatient (CLI) | payer MEDICARE, SELFPAY ==
--- NOTE | 2018-03-13 08:56 | XR_ITS ---
XR clavicle RT HISTORY: Follow-up clavicle fracture ITS.REASON: RT clavicle fracture ORDERING PHYSICIAN: Earl Hudson MD PATIENT AGE: 67 years COMPARISON: 02/27/2018 FINDINGS: Comminuted mildly impacted distal clavicular fracture is once again noted as previously described haven't somewhat smooth margins. There is superior displacement of the distal fracture fragment x 7 mm. Postsurgical changes right proximal humerus. IMPRESSION: Overall no change impacted and mildly displaced distal clavicular fracture.
== END ==
PROVIDERS: PCP Nurse Practitioner Family; Visit Provider Orthopaedic Surgery
DX: S42.001A Fracture of unspecified part of right clavicle, initial encounter for closed fracture (principal)
CPT/HCPCS: 73000

== ENCOUNTER → 2018-03-22 09:48 | Outpatient (CLI) | payer MEDICARE, OTHER, SELFPAY ==
--- NOTE | 2018-03-22 09:51 | XR_ITS ---
XR clavicle RT HISTORY: Follow-up fracture ITS.REASON: follow up ORDERING PHYSICIAN: Juma Lundberg MD PATIENT AGE: 67 years COMPARISON: 03/13/2018 FINDINGS: Impacted distal clavicular fracture present. The distal fracture fragment is also displaced superiorly x 7 mm. Acromioclavicular joint is unremarkable. There has been prior ORIF of the proximal humerus with an intramedullary rito and multiple screws with osteoarthritic change of the glenohumeral joint. IMPRESSION: Overall no change in impacted distal radial fracture with mild displacement of the distal fracture fragment
== END ==
PROVIDERS: PCP Nurse Practitioner Family; Visit Provider Orthopaedic Surgery
DX: S42.001A Fracture of unspecified part of right clavicle, initial encounter for closed fracture (principal)
CPT/HCPCS: 73000

== ENCOUNTER 2018-04-04 09:00 | Outpatient (RCR) | payer MEDICARE, SELFPAY ==
--- NOTE | 2018-03-24 09:16 | HMH.OTOPEV ---
OT Inpatient Evaluation Rehab OT Outpatient Eval Start: 03/24/18 09:03 Freq: Status: Active Protocol: Document 03/24/18 09:03 TFRY (Rec: 03/24/18 09:15 TFRY [id number]) Electronically Signed By Kassidy Montana OT 03/24/18 09:03 Outpatient Therapy Subjective History Subjective History THIS IS A 67 YEAR OLD RIGHT HANDED FEMALE REFERRED TO OCCUPATIONAL THERAPY FOR RIGHT CLAVICLE FRACTURE. PATIENT REPORTS SHE FELL January AT WHICH TIME SHE BROKE HER CLAVICLE. SHE REPORTS THAT SHE FELL IN 2011 AND BROKE HER SHOULDER AND HAS HAD LIMITED ROM IN THAT SHOULDER SINCE THAT INJURY. Chief Complaint Pain Symptom Type Dull Symptoms Relieved By Rest/Positioning Symptoms Aggravated By Physical Activity Prior Functional Limitations None Current Functional Limitations None Level of pain today (0-10) 0 Pain scale - at its best (0-10) 0 Pain scale - at its worst (0-10) 2 Shoulder/Elbow Eval Shoulder Objective Measurements Shoulder ROM Right Shoulder ROM Limitations Bony Restriction Shoulder Abduction Passive Range of 60 Motion (degrees) Shoulder Flexion Passive Range of Motion 75 (degrees) Shoulder External Rotation Passive Range 45 of Motion (degrees) Shoulder Internal Rotation Passive Range 0 of Motion (degrees) decreased ROM shoulder exam standard right Shoulder MMT Shoulder Strength Reason Not Measured Orthopedic Precautions Elbow Objective Measurements OT Outpatient Assessment Impairments Problems/Impairments Impaired Range of Motion Impaired Strength Prognosis Rehab Potential Fair Clinical Impression Consistent with Diagnosis Yes Short Term Goals Number of Weeks 3 Increase Range of Motion Yes: AROM TO BE THE SAME PROM IN SHOULDER Increase Strength Yes: RIGHT SHOULDER STRENGTH TO 3/5 THROUGHOUT Patient to be Ind w/ HEP Yes Patient to be Ind w/ Advanced HEP Yes Warehouse Assistant Goals Number of Weeks 6 Increase Range of Motion Yes: RIGHT SHOULDER AROM TO EQUAL PROM Increase Strength Yes: RIGHT SHOULDER STRENGTH TO 4-/5 Patient to be Ind w/ HEP Yes Patient to be Ind w/ Advanced HEP Yes Outpatient Therapy Plan of Care Treatment Plan May Include Therapeutic Exercise Including Home Yes Exercise
== END 2018-04-04 09:01 | disposition home or self-care (01) ==
LOC: OT 09:00
PROVIDERS: Family Provider Internal Medicine Adolescent Medicine; PCP Nurse Practitioner Family; Visit Provider Orthopaedic Surgery
DX: S42.001A Fracture of unspecified part of right clavicle, initial encounter for closed fracture (principal)
CPT/HCPCS: 97110; 97140; 97165; 97530

== ENCOUNTER → 2018-04-13 08:45 | Outpatient (CLI) | payer MEDICARE, SELFPAY ==
--- NOTE | 2018-04-13 08:50 | XR_ITS ---
XR clavicle RT HISTORY: Follow-up fracture ITS.REASON: right clavicle fx ORDERING PHYSICIAN: Juma Lundberg MD PATIENT AGE: 67 years COMPARISON: 03/22/2018 FINDINGS: No change impacted fracture of the distal aspect of the clavicle with superior displacement of the distal fracture fragment x 9 mm not significant change. Severe subacromial stenosis noted. Prior ORIF right proximal humerus with osteoarthritic changes of the glenohumeral joint. IMPRESSION: No change healing displaced distal clavicular fracture
== END ==
PROVIDERS: PCP Nurse Practitioner Family; Visit Provider Orthopaedic Surgery
DX: S42.001A Fracture of unspecified part of right clavicle, initial encounter for closed fracture (principal)
CPT/HCPCS: 73000

== ENCOUNTER → 2018-04-14 09:41 | Outpatient (POV) | payer MEDICARE, SELFPAY | PROVIDERS: Family Provider Internal Medicine Adolescent Medicine; PCP Nurse Practitioner Family; Visit Provider Podiatrist | DX: Z00.00 Encounter for general adult medical examination without abnormal findings (principal) ==

== ENCOUNTER 2018-04-24 09:00 | Outpatient (RCR) | payer MEDICARE, SELFPAY ==
--- NOTE | 2018-01-02 10:48 | HMH.PTOPWND ---
Rehab Outpt Wound Evaluation Rehab OP Wound Evaluation Start: 01/02/18 10:38 Freq: Status: Active Protocol: Document 01/02/18 10:38 PWANA (Rec: 01/02/18 10:47 [id number]) Electronically Signed By Mich Wills, PT 01/02/18 10:38 Subjective/History History History This is the initial outpatient wound care evaluation for Tammy Mauro. Pt is a 67 y /o female referred to wound care for dressing change and monitoring of wound vac s/p 4th/5th R toe amputation. Pt reports toe amputation was ~ 6 weeks ago. Subjective Subjective Pt rpeorts some TTP at wound bed. Wound Eval Wound Right Lateral Distal Foot Wound Type Amputation Is This a Chronic Wound Yes Wound Length (cm) 6.5 Wound Width (cm) 2.0 Wound Bed Appearance Yellow Percentage of Slough (%) 100 Percentage of Eschar (Yellow) (%) 100 Wound Margins Description Well Defined Surrounding Tissue Appearance [place]point Surrounding Tissue Temperature Warm Drainage Amount None Drainage Odor No Odor Dressing Status Changed Packing Type Woundvac Sponge Primary Dressing woundvac Dressing Change Date 01/02/18 Dressing Change Patient Tolerance Tolerated Well Drain Right Lateral Distal Foot Drain Type Woundvac Odor None/Absent Vacuum Pressure Setting (mmHg) 120 Vacuum Mode Setting Continuous Eval Complexity Eval Charge Codes 52534 - Low Complexity Wound Problems/Impairments Impairments Problems/Impairmments Wound Care Needs Subjective C/O Pain Impaired Self Care/Self Management Prognosis Rehab Potential Poor Comment Pt has very poor circulation and is scheduled for more surgical debridement Clinical Impression Consistent with Diagnosis Yes Short Term Goals Number of Weeks 4 Decrease Yellow/White Slough % 50% Increase Red Granulation Tissue % Yes: 50% Dairy Scientist Goals Number of Weeks 8 Decrease Wound Area Yes: 50% Decrease Yellow/White Slough % Yes: 0 Increase Red Granulation Tissue % Yes: 100 Outpatient Therapy Plan of Care Treatment Plan May Include Wound Care Yes Group Th
== END 2018-04-24 09:01 | disposition home or self-care (01) ==
LOC: PT 09:00
PROVIDERS: Family Provider Internal Medicine Adolescent Medicine; Visit Provider Podiatrist
DX: M86.271 Subacute osteomyelitis, right ankle and foot (principal)
CPT/HCPCS: 97161; 97597; 97605

== ENCOUNTER → 2018-05-05 08:53 | Outpatient (CLI) | payer MEDICARE, SELFPAY ==
--- NOTE | 2018-05-05 08:56 | XR_ITS ---
XR clavicle RT HISTORY: ITS.REASON: follow up rt clavicle fx ORDERING PHYSICIAN: Juma Lundberg MD PATIENT AGE: 67 years COMPARISON: 04/13/2018 FINDINGS: Nondisplaced impacted distal clavicle fracture once again noted. There remains lucency at the fracture site. There is however callus formation inferiorly. Postsurgical changes of proximal right humerus. IMPRESSION: Good alignment healing distal clavicular fracture
== END ==
PROVIDERS: PCP Nurse Practitioner Family; Visit Provider Orthopaedic Surgery
DX: S42.001A Fracture of unspecified part of right clavicle, initial encounter for closed fracture (principal)
CPT/HCPCS: 73000

== ENCOUNTER → 2018-08-07 14:23 | Outpatient (POV) | payer MEDICARE, OTHER, SELFPAY | PROVIDERS: Visit Provider Internal Medicine Nephrology | DX: Z00.00 Encounter for general adult medical examination without abnormal findings (principal) ==

== ENCOUNTER → 2018-08-15 08:20 | Outpatient (CLI) | payer MEDICARE, OTHER, SELFPAY ==
--- NOTE | 2018-08-15 08:23 | CA_ITS ---
PROCEDURE: 2-D M-mode and color Doppler study INDICATIONS FOR THE TEST: Chest pain COPD Heart Murmur Tobacco Smoking Palpitations Fatigue Syncope Edema Hypertension+Diabetes Mellitus+ Rheumatic Fever SOB WADE Obesity Hyperlipidemia+ Family History HD Additional History a-fib,cad, cabg a few wks ago PATIENT INFORMATION HEIGHT: 62 WEIGHT:144 GENDER: Female B/P:182/75 2-D/M-MODE INTERPRETATION: 2-D MEASUREMENTS OBSERVED VALUES IN CMS Right Ventricular Dimension (RVDd) 0.9 Interventricular Septum (Thickness)(IVsd) 1.0 Left Ventricular Internal Dimensions(LVIDd) 6.2 Left Ventricular Posterior Wall (Thickness)(LVPWd) 0.7 Aortic Root 2.6 Aortic Cusp Separation 1.8 Left Atrial Dimensions (LAD) 4.3 2D 1. Left atrium is mildly enlarged, left ventricle is mildly dilated, there is mild concentric left ventricular hypertrophy, visually estimated ejection fraction 50%, there is moderate hypokinesis involving the basal septum, inferobasal and inferior wall. 2. The right atrium and right ventricle are normal size and contractility. 3. The aortic valve is thickened and calcified leaflet continue to display mobility. 4. The mitral and tricuspid valve leaflets are minimally thickened. 5. The pulmonic valve is poorly visualized. 6. No significant pericardial effusion noted. DOPPLER INTERROGATION: Doppler interrogation of the aortic, mitral and tricuspid valvular presence of mild mitral and tricuspid regurgitation, tricuspid regurgitation jet velocity is inadequate for calculation of the right ventricular systolic pressure, grade 1 diastolic dysfunction seen with tissue Doppler evidence of raised left atrial pressure. CONCLUSION: 1. Mildly enlarged left atrium, mildly enlarged right ventricle, mild concentric left ventricular hypertrophy, visually estimated ejection fraction 50% with segmental motion abnormality described above, grade 1 diastolic dysfunction seen with tissue Doppler evidence of raised left atrial pressure. 2. Mild mitral and tricuspid regurgitation 3. No significant pericardial effusion noted.
[2018-08-15 09:53] LABS: Basophils % 0.4 % (0.1-2.0); Eosinophils # 0.4 K/mm3 (0.0-0.4); Eosinophils % 4.3 % (0.1-12.0); Hematocrit 33.1 % (37.0-47.0); Hemoglobin 10.2 g/dL (12.2-16.2); Lymphocytes # 1.8 K/mm3 (0.7-4.5); Lymphocytes % 20.3 % (10-50); Mean Corpuscular HGB Conc 30.8 g/dL (31.8-35.4); Mean Corpuscular Hemoglobin 30.2 pg (27.0-31.2); Mean Corpuscular Volume 97.8 fl (81-99); Mean Platelet Volume 7.5 fl (7.4-10.4); Monocytes # 0.4 K/mm3 (0.1-1.0); Monocytes % 4.4 % (1.7-9.3); Neutrophils # 6.2 K/mm3 (1.8-7.8); Neutrophils % 70.5 % (37.0-80.0); Platelet Count 273 K/mm3 (142-424); Red Blood Count 3.39 M/mm3 (4.20-5.40); Red Cell Distribution Width 15.8 % (11.5-17.5); White Blood Count 8.8 K/mm3 (4.8-10.8)
[2018-08-15 11:19] LABS: Alanine Aminotransferase 17 U/L (12-78); Albumin Level 3.3 gm/dL (3.4-5.0); Alkaline Phosphatase 144 U/L (46-116); Anion Gap 17.2 mEq/L (5-15); Aspartate Amino Transferase 11 U/L (15-37); Bilirubin,Direct 0.1 mg/dL (0.0-0.2); Bilirubin,Indirect 0.3 mg/dL (0.0-0.9); Bilirubin,Total 0.4 mg/dL (0.2-1.0); Blood Urea Nitrogen 32 mg/dL (7-18); Calcium 9.1 mg/dL (8.5-10.1); Carbon Dioxide 23 mmol/L (21.0-32.0); Chloride 106 mmol/L (98-107); Chol/HDL Ratio 4.9 (1-3.5); Cholesterol 151 mg/dL (140-200); Creatinine,Serum 1.93 mg/dL (0.55-1.02); Estimated Glomerular Filt Rate 26 ml/min (>60); Free T4 (Free Thyroxine) 1.23 ng/dl (0.76-1.46); GFR (African American) 31 ML/MIN (>60); Glucose 135 mg/dL (74-106); HDL Cholesterol 31 mg/dL (29-89); LDL Cholesterol 89 mg/dL (0-130); Potassium 4.2 mmoL/L (3.5-5.1); Sodium 142 mmol/L (136-145); Thyroid Stimulating Hormone 2.29 uIU/ml (0.358-3.740); Total Protein,Serum 7.2 gm/dL (6.4-8.2); Triglycerides 157 mg/dL (30-200); VLDL Cholesterol 31 mg/dL (0-40)
== END ==
PROVIDERS: PCP Nurse Practitioner Family; Visit Provider Internal Medicine Cardiovascular Disease
DX: E11.9 Type 2 diabetes mellitus without complications (principal); E78.5 Hyperlipidemia, unspecified; I11.9 Hypertensive heart disease without heart failure; I25.10 Atherosclerotic heart disease of native coronary artery without angina pectoris; I48.91 Unspecified atrial fibrillation; I73.9 Peripheral vascular disease, unspecified; Z95.1 Presence of aortocoronary bypass graft; N18.9 Chronic kidney disease, unspecified; I50.9 Heart failure, unspecified
CPT/HCPCS: 36415; 80048; 80061; 80076; 84439; 84443; 85025; 93306

== ENCOUNTER 2018-08-29 08:39 | Outpatient (RCR) | payer MEDICARE, SELFPAY | END 2018-10-25 08:56 | disposition home or self-care (01) | LOC: PT 08:39 | PROVIDERS: Visit Provider Internal Medicine Cardiovascular Disease | DX: Z95.1 Presence of aortocoronary bypass graft (principal); I25.10 Atherosclerotic heart disease of native coronary artery without angina pectoris; I73.9 Peripheral vascular disease, unspecified | CPT/HCPCS: 93798 ==

== ENCOUNTER → 2018-09-22 07:03 | Outpatient (CLI) | payer MEDICARE, SELFPAY ==
[2018-09-22 08:01] LABS: Basophils # 0.1 K/mm3 (0-0.2); Basophils % 0.7 % (0.1-2.0); Eosinophils # 0.6 K/mm3 (0.0-0.4); Eosinophils % 8.5 % (0.1-12.0); Hematocrit 36.1 % (37.0-47.0); Hemoglobin 11.4 g/dL (12.2-16.2); Lymphocytes # 1.6 K/mm3 (0.7-4.5); Lymphocytes % 23.4 % (10-50); Mean Corpuscular HGB Conc 31.5 g/dL (31.8-35.4); Mean Corpuscular Hemoglobin 29.8 pg (27.0-31.2); Mean Corpuscular Volume 94.5 fl (81-99); Mean Platelet Volume 7.5 fl (7.4-10.4); Monocytes # 0.3 K/mm3 (0.1-1.0); Monocytes % 4.4 % (1.7-9.3); Neutrophils # 4.3 K/mm3 (1.8-7.8); Platelet Count 249 K/mm3 (142-424); Red Blood Count 3.82 M/mm3 (4.20-5.40); Red Cell Distribution Width 14.8 % (11.5-17.5); White Blood Count 6.8 K/mm3 (4.8-10.8)
[2018-09-22 08:50] LABS: Alanine Aminotransferase 18 U/L (12-78); Albumin Level 3.7 gm/dL (3.4-5.0); Albumin/Globulin Ratio 0.9 (1.1-1.8); Alkaline Phosphatase 120 U/L (46-116); Anion Gap 12.9 mEq/L (5-15); Aspartate Amino Transferase 14 U/L (15-37); Bilirubin,Total 0.3 mg/dL (0.2-1.0); Blood Urea Nitrogen 27 mg/dL (7-18); Calcium 9.1 mg/dL (8.5-10.1); Carbon Dioxide 26 mmol/L (21.0-32.0); Chloride 106 mmol/L (98-107); Chol/HDL Ratio 6.1 (1-3.5); Cholesterol 209 mg/dL (140-200); Creatinine,Serum 1.72 mg/dL (0.55-1.02); Estimated Glomerular Filt Rate 30 ml/min (>60); GFR (African American) 36 ML/MIN (>60); Globulin 3.9 gm/dl (1.3-3.2); Glucose 108 mg/dL (74-106); HDL Cholesterol 34 mg/dL (29-89); LDL Cholesterol 130 mg/dL (0-130); Potassium 3.9 mmoL/L (3.5-5.1); Sodium 141 mmol/L (136-145); Thyroid Stimulating Hormone 4.35 uIU/ml (0.358-3.740); Total Protein,Serum 7.6 gm/dL (6.4-8.2); Triglycerides 224 mg/dL (30-200); VLDL Cholesterol 45 mg/dL (0-40)
[2018-09-22 09:04] LABS: Hemoglobin A1C 7.1 % (0.0-7.0)
== END ==
PROVIDERS: Visit Provider Internal Medicine Adolescent Medicine
DX: I10 Essential (primary) hypertension (principal); E11.9 Type 2 diabetes mellitus without complications; Z79.4 Long term (current) use of insulin
CPT/HCPCS: 36415; 80053; 80061; 83036; 84443; 85025

== ENCOUNTER → 2018-10-16 10:35 | Outpatient (CLI) | payer MEDICARE, SELFPAY ==
[2018-10-16 13:50] LABS: Basophils % 0.2 % (0.1-2.0); Eosinophils % 25.7 % (0.1-12.0); Hematocrit 33.5 % (37.0-47.0); Hemoglobin 10.4 g/dL (12.2-16.2); Lymphocytes # 1.5 K/mm3 (0.7-4.5); Lymphocytes % 19.1 % (10-50); Mean Corpuscular HGB Conc 31.1 g/dL (31.8-35.4); Mean Corpuscular Hemoglobin 29.6 pg (27.0-31.2); Mean Corpuscular Volume 95.1 fl (81-99); Mean Platelet Volume 8.2 fl (7.4-10.4); Monocytes # 0.3 K/mm3 (0.1-1.0); Monocytes % 3.9 % (1.7-9.3); Neutrophils # 3.9 K/mm3 (1.8-7.8); Neutrophils % 51.2 % (37.0-80.0); Platelet Count 247 K/mm3 (142-424); Red Blood Count 3.53 M/mm3 (4.20-5.40); Red Cell Distribution Width 14.9 % (11.5-17.5); White Blood Count 7.7 K/mm3 (4.8-10.8)
[2018-10-16 14:12] LABS: Alanine Aminotransferase 18 U/L (12-78); Albumin Level 3.1 gm/dL (3.4-5.0); Albumin/Globulin Ratio 0.9 (1.1-1.8); Alkaline Phosphatase 135 U/L (46-116); Anion Gap 16.4 mEq/L (5-15); Aspartate Amino Transferase 15 U/L (15-37); Bilirubin,Total 0.3 mg/dL (0.2-1.0); Blood Urea Nitrogen 36 mg/dL (7-18); Calcium 8.4 mg/dL (8.5-10.1); Carbon Dioxide 20 mmol/L (21.0-32.0); Chloride 107 mmol/L (98-107); Creatinine,Serum 2.43 mg/dL (0.55-1.02); Estimated Glomerular Filt Rate 20 ml/min (>60); GFR (African American) 24 ML/MIN (>60); Globulin 3.5 gm/dl (1.3-3.2); Glucose 359 mg/dL (74-106); Potassium 4.4 mmoL/L (3.5-5.1); Sodium 139 mmol/L (136-145); Total Protein,Serum 6.6 gm/dL (6.4-8.2)
== END ==
PROVIDERS: PCP Internal Medicine Adolescent Medicine; Visit Provider Internal Medicine Adolescent Medicine
DX: I10 Essential (primary) hypertension (principal); E11.9 Type 2 diabetes mellitus without complications; Z79.4 Long term (current) use of insulin
CPT/HCPCS: 36415; 80053; 85025

== ENCOUNTER → 2019-02-28 08:47 | Outpatient (POV) | payer MEDICARE, SELFPAY ==
[2019-02-28 08:50] LABS: Microscopic, Urine URINE MICROSCOPIC (MICROSCOPIC)
[2019-02-28 09:32] LABS: Bilirubin,Urine Negative (Negative); Blood, Urine TRACE-I (Negative); Color,Urine YELLOW (Yellow); Glucose,Urine (UA) Negative (Negative); Ketones,Urine Negative (Negative); Leukocyte Esterase,Urine 3+ (Negative); Nitrate,Urine POSITIVE (Negative); PH,Urine 5.5 (5.0-8.5); Protein,Urine 1+ (Negative); Specific Gravity, Urine 1.025 (1.005-1.030); Urobilinogen,Urine 0.2 EU/dl (0.2)
[2019-02-28 09:41] LABS: Appearance,Urine Cloudy (Clear)
[2019-02-28 09:57] LABS: Bacteria,Urine 4+ /lpf; WBC,Urine TNTC #/hpf (0-3)
[2019-02-28 09:58] LABS: Creatinine,Urine Random 74 mg/dL (20-320); Total Protein,Urine Random 157.9 mg/dL (0.0-11.9)
[2019-02-28 11:14] LABS: Basophils % 0.5 % (0.1-2.0); Eosinophils # 0.3 K/mm3 (0.0-0.4); Eosinophils % 3.4 % (0.1-12.0); Hematocrit 35.4 % (37.0-47.0); Hemoglobin 10.9 g/dL (12.2-16.2); Lymphocytes # 1.4 K/mm3 (0.7-4.5); Lymphocytes % 16.4 % (10-50); Mean Corpuscular HGB Conc 30.9 g/dL (31.8-35.4); Mean Corpuscular Hemoglobin 29.4 pg (27.0-31.2); Mean Corpuscular Volume 95.4 fl (81-99); Monocytes # 0.4 K/mm3 (0.1-1.0); Neutrophils # 6.2 K/mm3 (1.8-7.8); Neutrophils % 74.7 % (37.0-80.0); Platelet Count 236 K/mm3 (142-424); Red Blood Count 3.71 M/mm3 (4.20-5.40); Red Cell Distribution Width 14.8 % (11.5-17.5); White Blood Count 8.4 K/mm3 (4.8-10.8)
[2019-02-28 12:11] LABS: Albumin Level 3.3 gm/dL (3.4-5.0); Anion Gap 15.1 mEq/L (5-15); Blood Urea Nitrogen 32 mg/dL (7-18); Carbon Dioxide 21 mmol/L (21.0-32.0); Chloride 108 mmol/L (98-107); Creatinine,Serum 1.66 mg/dL (0.55-1.02); Estimated Glomerular Filt Rate 31 ml/min (>60); GFR (African American) 37 ML/MIN (>60); Glucose 140 mg/dL (74-106); Phosphorous 4.4 mg/dL (2.4-4.9); Potassium 4.1 mmoL/L (3.5-5.1); Sodium 140 mmol/L (136-145)
[2019-03-02 07:11] LABS: Parathyroid Hormone Intact 31 pg/mL (15-65)
== END ==
PROVIDERS: Visit Provider Internal Medicine Nephrology
DX: N17.9 Acute kidney failure, unspecified (principal); E55.9 Vitamin D deficiency, unspecified; R82.90 Unspecified abnormal findings in urine
CPT/HCPCS: 36415; 80069; 81001; 82570; 82652; 83970; 84155; 85025; 87086; 87088; 87186

== ENCOUNTER 2019-07-27 08:09 | Emergency (ER) | payer MEDICARE, OTHER, SELFPAY ==
[2019-07-27 08:24] VITALS: BP 147/62; PULSE 82; RESP 18; TEMP 36.6; O2SAT 95; BMI 28.0
--- NOTE | 2019-07-27 08:30 | XR_ITS ---
PROCEDURE: XR CHEST 2V CLINICAL HISTORY: COUGH, CONGESTION, FEVER COMPARISON: CXR1VP XR chest portable from 06/16/2018 CXR1VP XR chest portable from 06/27/2018 CXR2V XR chest 2V from 10/21/2018 FINDINGS: The cardiomediastinal silhouette and pulmonary vascularity are within normal limits. The lungs are clear without infiltrates, suspicious nodules, or pleural effusions. No acute bony abnormalities. IMPRESSION: No acute findings. Dictated by: Brody Rubi 07/27/2019 17:30 Electronically signed by Brody Rubi in [place] 07/27/2019 17:30
[2019-07-27 08:41] LABS: Basophils % 0.2 % (0.1-2.0); Eosinophils # 0.2 K/mm3 (0.0-0.4); Hematocrit 31.3 % (37.0-47.0); Hemoglobin 9.9 g/dL (12.2-16.2); Lymphocytes # 1.4 K/mm3 (0.7-4.5); Lymphocytes % 16.6 % (10-50); Mean Corpuscular HGB Conc 31.6 g/dL (31.8-35.4); Mean Corpuscular Hemoglobin 29.4 pg (27.0-31.2); Mean Corpuscular Volume 93.1 fl (81-99); Mean Platelet Volume 8.7 fl (7.4-10.4); Monocytes # 0.5 K/mm3 (0.1-1.0); Monocytes % 5.6 % (1.7-9.3); Neutrophils # 6.4 K/mm3 (1.8-7.8); Neutrophils % 75.6 % (37.0-80.0); Platelet Count 279 K/mm3 (142-424); Red Blood Count 3.36 M/mm3 (4.20-5.40); Red Cell Distribution Width 13.9 % (11.5-17.5); White Blood Count 8.5 K/mm3 (4.8-10.8)
[2019-07-27 08:54] LABS: Alanine Aminotransferase 15 U/L (12-78); Albumin Level 2.4 gm/dL (3.4-5.0); Albumin/Globulin Ratio 0.5 (1.1-1.8); Alkaline Phosphatase 210 U/L (46-116); Anion Gap 17.2 mEq/L (5-15); Aspartate Amino Transferase 18 U/L (15-37); Bilirubin,Total 0.2 mg/dL (0.2-1.0); Blood Urea Nitrogen 60 mg/dL (7-18); Calcium 8.7 mg/dL (8.5-10.1); Carbon Dioxide 18 mmol/L (21.0-32.0); Chloride 103 mmol/L (98-107); Creatinine Clearance Estimated 33 mL/min (50-200); Creatinine,Serum 1.79 mg/dL (0.55-1.02); Estimated Glomerular Filt Rate 28 ml/min (>60); GFR (African American) 34 ML/MIN (>60); Globulin 5.2 gm/dl (1.3-3.2); Glucose 163 mg/dL (74-106); Potassium 5.2 mmoL/L (3.5-5.1); Sodium 133 mmol/L (136-145); Total Protein,Serum 7.6 gm/dL (6.4-8.2)
[2019-07-27 08:57] LABS: Microscopic, Urine URINE MICROSCOPIC (MICROSCOPIC)
[2019-07-27 08:59] LABS: Appearance,Urine CLEAR (Clear); Bilirubin,Urine Negative (Negative); Blood, Urine 2+ (Negative); Color,Urine YELLOW (Yellow); Glucose,Urine (UA) Negative (Negative); Ketones,Urine Negative (Negative); Leukocyte Esterase,Urine 2+ (Negative); Nitrate,Urine POSITIVE (Negative); Protein,Urine 1+ (Negative); Urobilinogen,Urine 0.2 EU/dl (0.2)
[2019-07-27 09:25] LABS: Bacteria,Urine 2+ /lpf
--- NOTE | 2019-07-27 09:40 | HMH.EDGENADL ---
ED Disposition Clinical Impression: Dehydration, Urinary tract infection, Anemia, Renal insufficiency, Hyponatremia, Hyperkalemia, Elevated alkaline phosphatase level, Polyp of gallbladder Disposition: Home, Self-Care Condition on Discharge: Good Instructions: DI for Urinary Tract Infection (UTI), DI for Dehydration -- Adult Additional Instructions: Follow-up with primary care provider on Tuesday. Return to the emergency department immediately if symptoms are worse. Prescriptions: levoFLOXacin [Levaquin] 500 mg PO DAILY 5 Days #5 tab Transmission Status: Pending to [facility] Referrals: Ethan Lewis MD [Primary Care Provider] - Time of Disposition: 13:28 - Critical Care Critical Care Time: No Attestation: On 07/27/19, the high probability of a clinically significant, sudden or life threatening deterioration of the following system(s) required my full and direct attention, intervention and personal management. The time I documented below is in addition to time spent performing reported procedures but includes the following listed in this critical care notation. Medical Decision Making - Medical Records Medical records reviewed: Yes: I reviewed the patient's medical records. - Brennon Inquiry Pt receiving controlled substance: No Vital Signs: 07/27/19 08:24 Temperature 97.8 F Temperature Source Oral Pulse Rate [Left Radial] 82 Respiratory Rate 18 Blood Pressure [Left Arm] 147/62 H Blood Pressure Mean [Left Arm] 90 Blood Pressure Source [Left Arm] Automatic Cuff Blood Pressure Position [Left Arm] Sitting 02 Sat by Pulse Oximetry 95 Oxygen Delivery Method Room Air - Lab Data Lab results reviewed: Yes: I reviewed the patient's lab results. Lab Results 07/27/19 08:30: WBC 8.5, RBC 3.36 L, Hgb 9.9 L, Hct 31.3 L, MCV 93.1, MCH 29.4, MCHC 31.6 L, RDW 13.9, Plt Count 279, MPV 8.7, Neut % (Auto) 75.6, Lymph % (Auto) 16.6, [place] % (Auto) 5.6, Eos % (Auto) 2.0, Baso % (Auto) 0.2, Neut # (Auto) 6.4, Lymph # (Auto) 1.4, [place] # (Auto) 0.5, Eos # (Auto) 0.2, Baso # (Auto) 0.0 07/27/19 08:30: Sodium 133 L, Potassium 5.2 H, Chloride 103, Carbon Dioxide 18 L, Anion Gap 17.2 H, BUN 60 H, Creatinine 1.79 H, Estimated Creat Clear 33, Estimated GFR 28 L, Est GFR ( Amer) 34 L, Glucose 163 H, Calcium 8.7, Total Bilirubin 0.2, AST 18, ALT 15, Alkaline Phosphatase 210 H, Total Protein 7.6, Albumin 2.4 L, Globulin 5.2 H, Albumin/Globulin Ratio 0.5 L 07/27/19 08:30: Influenza Type A Ag Negative, Influenza Type B Ag Negative 07/27/19 08:30: Troponin I < 0.02 07/27/19 08:30: B-Natriuretic Peptide 923 H 07/27/19 08:52: Urine Color Yellow, Urine Appearance Clear, Urine pH 6.0, Ur Specific [place] 1.010, Urine Protein 1+, Urine Glucose (UA) Negative, Urine Ketones Negative, Urine Blood 2+, Urine Nitrate Positive, Urine Bilirubin Negative, Urine Urobilinogen 0.2, Ur Leukocyte Esterase 2+ A, Urine RBC 5-10, Urine WBC 10-20, Ur Squamous Epith Cells 5-10, Urine Bacteria 2+ Result diagrams: 07/27/19 08:30 07/27/19 08:30 Orders (Tests/Meds): ED MEDICATIONS Discontinued Medications Generic Name Dose Route Start Last Admin Trade Name Freq PRN Reason Stop Dose Admin Sodium Chloride 1,000 mls @ 999 mls/hr 07/27/19 11:30 07/27/19 11:23 Sod Chlor 0.9% 1000ml Bag IV 07/27/19 12:30 999 mls/hr .Q1H1M LUIS Administration ORDERS Category Date Time Status Chest XR 2 view (NOT portable) [XR chest 2V] Stat Exams 07/27/19 08:30 Taken US gallbladder Stat Exams 07/27/19 11:20 Taken Aldosterone Stat Lab 07/27/19 08:30 Received Urine Culture Stat Micro 07/27/19 08:52 Received - US Data US Images: Gallbladder ED US Reviewed: Yes: I have viewed radiologist's interpretation Preliminary Findings: Normal/NAD Findings Narrative: Polyp in gallbladder but no obstruction. - Physician Consults Physician Consulted: Dr. Carmichael for Dr. Anderson Time: 13:13 Reason -: Pt condition Comment/Response: Discussed manoj
--- NOTE | 2019-07-27 11:20 | US_ITS ---
PROCEDURE: US GALLBLADDER CLINICAL INDICATION: Abdominal pain, elevated alkaline phosphatase. COMPARISON: No exams were available for comparison FINDINGS: Pancreas: Unremarkable/Not well seen Liver: Unremarkable. There is appropriate direction of blood flow within a non dilated portal vein. Right kidney: Unremarkable appearing. No hydronephrosis. Gallbladder: Common bile duct is normal measuring 2.5 millimeters. There is a 10 millimeter mildly echogenic focus at the posterior wall of the gallbladder. This does not shadow. The gallbladder wall is normal and there is no pericholecystic fluid. IMPRESSION: Differential for the gallbladder finding would be focus of sludge, polyp or noncalcified stone. There is no acute inflammation. Dictated by: Brody Rubi 07/27/2019 16:47 Electronically signed by Brody Rubi in [place] 07/27/2019 16:47
[2019-07-27 11:47] LABS: Troponin I < 0.02 ng/ml (0.00-0.06)
--- NOTE | 2019-07-27 13:09 | PC.NURSE ---
speaking with dr khan
[2019-07-27 13:42] VITALS: BP 132/64; PULSE 81; RESP 16; TEMP 36.4; O2SAT 96
== END 2019-07-27 13:44 | disposition home or self-care (01) ==
PROVIDERS: Emergency Provider Emergency Medicine; PCP Internal Medicine Adolescent Medicine
DX: K82.4 Cholesterolosis of gallbladder (principal); E86.0 Dehydration; N39.0 Urinary tract infection, site not specified; D64.9 Anemia, unspecified; N28.9 Disorder of kidney and ureter, unspecified; E87.1 Hypo-osmolality and hyponatremia; E87.5 Hyperkalemia; I25.10 Atherosclerotic heart disease of native coronary artery without angina pectoris; E11.9 Type 2 diabetes mellitus without complications; I10 Essential (primary) hypertension; R06.02 Shortness of breath; Z95.1 Presence of aortocoronary bypass graft; Z87.891 Personal history of nicotine dependence; Z79.899 Other long term (current) drug therapy; Z90.79 Acquired absence of other genital organ(s); Z96.641 Presence of right artificial hip joint; Z96.642 Presence of left artificial hip joint
CPT/HCPCS: 71046; 76705; 80053; 81001; 82088; 83880; 84484; 85025; 87086; 87088; 87186; 87275; 87276; 96365; 99283

== ENCOUNTER → 2019-07-30 11:05 | Outpatient (CLI) | payer MEDICARE, SELFPAY ==
[2019-07-30 11:37] LABS: Basophils % 0.3 % (0.1-2.0); Eosinophils # 0.2 K/mm3 (0.0-0.4); Hematocrit 34.6 % (37.0-47.0); Hemoglobin 9.9 g/dL (12.2-16.2); Lymphocytes % 13.1 % (10-50); Mean Corpuscular HGB Conc 28.7 g/dL (31.8-35.4); Mean Corpuscular Hemoglobin 27.5 pg (27.0-31.2); Mean Corpuscular Volume 96.1 fl (81-99); Mean Platelet Volume 8.3 fl (7.4-10.4); Monocytes # 0.5 K/mm3 (0.1-1.0); Monocytes % 5.7 % (1.7-9.3); Neutrophils # 6.2 K/mm3 (1.8-7.8); Neutrophils % 78.9 % (37.0-80.0); Platelet Count 399 K/mm3 (142-424); Red Cell Distribution Width 14.6 % (11.5-17.5); White Blood Count 7.8 K/mm3 (4.8-10.8)
[2019-07-30 12:43] LABS: Alanine Aminotransferase 44 U/L (12-78); Albumin Level 2.5 gm/dL (3.4-5.0); Albumin/Globulin Ratio 0.6 (1.1-1.8); Alkaline Phosphatase 351 U/L (46-116); Aspartate Amino Transferase 63 U/L (15-37); Bilirubin,Total 0.3 mg/dL (0.2-1.0); Blood Urea Nitrogen 44 mg/dL (7-18); Calcium 8.6 mg/dL (8.5-10.1); Carbon Dioxide 17 mmol/L (21.0-32.0); Chloride 106 mmol/L (98-107); Creatinine,Serum 1.68 mg/dL (0.55-1.02); Estimated Glomerular Filt Rate 30 ml/min (>60); GFR (African American) 37 ML/MIN (>60); Globulin 4.3 gm/dl (1.3-3.2); Glucose 118 mg/dL (74-106); Sodium 139 mmol/L (136-145); Total Protein,Serum 6.8 gm/dL (6.4-8.2)
[2019-07-30 13:11] LABS: Hemoglobin A1C 8.7 % (0.0-7.0)
== END ==
PROVIDERS: Visit Provider Internal Medicine Adolescent Medicine
DX: E11.42 Type 2 diabetes mellitus with diabetic polyneuropathy (principal); Z79.4 Long term (current) use of insulin
CPT/HCPCS: 36415; 80053; 83036; 85025

== ENCOUNTER → 2020-08-20 14:33 | Outpatient (POV) | payer MEDICARE, SELFPAY | PROVIDERS: Visit Provider Internal Medicine Adolescent Medicine | DX: Z00.00 Encounter for general adult medical examination without abnormal findings (principal) ==

== ENCOUNTER → 2020-08-22 08:27 | Outpatient (CLI) | payer MEDICARE, SELFPAY ==
--- NOTE | 2020-08-22 08:30 | MM_ITS ---
PROCEDURE: MM DIG SCREENING MAMM BI W/CAD Digital Breast Tomosynthesis Included CLINICAL INDICATION: SCREENING There is no personal or family history of breast cancer. COMPARISON: MG DMSB DIG MAMM-SCREEN ARTUR from 12/20/2014 TECHNIQUE: Standard CC and MLO images and 3D Tomosynthesis was obtained. R2 CAD reviewed. FINDINGS: Ktsi-[id number] fibroglandular densities are seen throughout both breasts. There are few scattered benign-appearing microcalcifications in each breast. There is faint arterial calcification in each breast. There is no suspicious lesion in either breast and no no suspicious microcalcifications. IMPRESSION: Fibrofatty parenchyma with no suspicious lesions seen BI-RAD Category: 2 Benign Finding(s) FOLLOW-UP: 1YR 1 Year Follow-up (A letter has been sent to the patient regarding results of the study.) Dictated by: Dr. Alfredo Mirza MD 08/26/2020 12:45 Dr. Alfredo Mirza MD in [place] 08/26/2020 12:45
--- NOTE | 2020-08-22 08:31 | XR_ITS ---
PROCEDURE: XR DEXA AXIAL SKELETON CLINICAL HISTORY: POST MENOPAUSAL COMPARISON: No exams were available for comparison FINDINGS: The left forearm BMD is 0.614 with a T-score of -1.3. The left hip BMD is 0.476 with a T-score of -3.4. The lumbar spine BMD is 1.065 with a T-score of 0.2. IMPRESSION: This patient is considered osteoporotic according to the World Health Organization criteria. Fracture risk is high. Treatment is advised. Based on these results a follow-up exam is recommended in 1 year. Dictated by: Ziggy Ruiz MD 08/25/2020 15:52 Ziggy Ruiz MD in [place] 08/25/2020 15:52
== END ==
PROVIDERS: PCP Internal Medicine Adolescent Medicine; Visit Provider Internal Medicine Adolescent Medicine
DX: Z12.31 Encounter for screening mammogram for malignant neoplasm of breast (principal); Z13.820 Encounter for screening for osteoporosis; Z78.0 Asymptomatic menopausal state
CPT/HCPCS: 77063; 77067; 77080

== ENCOUNTER → 2020-09-01 09:41 | Outpatient (CLI) | payer MEDICARE, SELFPAY ==
--- NOTE | 2020-09-01 10:28 | XR_ITS ---
PROCEDURE: XR WRIST RT MIN 3V CLINICAL INDICATION: RT WRIST PAIN COMPARISON: CR WRISTCMRT XR wrist RT min 3V from 02/27/2018 FINDINGS: There is cortical regularity involving the dorsal and distal aspect of the radius suggesting a nondisplaced fracture. This is age indeterminate. There are mild osteoarthritic changes at the radiocarpal joint and distal radial ulnar joint. Other findings:None. IMPRESSION: Nondisplaced fracture involves the dorsal and distal aspect of the radius age indeterminate with mild osteoarthritic change. Dictated by: Ziggy Ruiz MD 09/01/2020 15:18 Ziggy Ruiz MD in [place] 09/01/2020 15:18
== END ==
PROVIDERS: PCP Internal Medicine Adolescent Medicine; Visit Provider Internal Medicine Adolescent Medicine
DX: M25.531 Pain in right wrist (principal)
CPT/HCPCS: 73110

== ENCOUNTER 2020-09-04 13:35 | Outpatient (RCR) | payer MEDICARE, SELFPAY | END 2020-09-04 14:10 | disposition home or self-care (01) | LOC: OT 13:35 | PROVIDERS: Visit Provider Orthopaedic Surgery | DX: S52.501A Unspecified fracture of the lower end of right radius, initial encounter for closed fracture (principal) | CPT/HCPCS: 97763 ==

== ENCOUNTER → 2020-10-03 09:17 | Outpatient (CLI) | payer MEDICARE, SELFPAY ==
--- NOTE | 2020-10-03 09:22 | XR_ITS ---
PROCEDURE: XR WRIST RT MIN 3V CLINICAL INDICATION: RT wrist Pain COMPARISON: CR WRISTCMRT XR wrist RT min 3V from 02/27/2018 CR XR WRIST RT MIN 3V from 09/01/2020 FINDINGS: Normal alignment nondisplaced transverse fracture at the distal radius at the diaphyseal metaphyseal junction. There is some sclerosis developing at the fracture site. There is a minimally displaced dorsal fracture fragment. IMPRESSION: Healing distal radial fracture nondisplaced Dictated by: Ziggy Ruiz MD 10/03/2020 10:18 Ziggy Ruiz MD in [place] 10/03/2020 10:18
== END ==
PROVIDERS: PCP Internal Medicine Adolescent Medicine; Visit Provider Orthopaedic Surgery
DX: S52.509A Unspecified fracture of the lower end of unspecified radius, initial encounter for closed fracture (principal)
CPT/HCPCS: 73110

== ENCOUNTER → 2020-11-07 09:38 | Outpatient (CLI) | payer MEDICARE, SELFPAY ==
--- NOTE | 2020-11-07 09:42 | XR_ITS ---
PROCEDURE: XR WRIST RT MIN 3V CLINICAL INDICATION: RT wrist fracture Follow-up fracture COMPARISON: CR WRISTCMRT XR wrist RT min 3V from 02/27/2018 CR XR WRIST RT MIN 3V from 09/01/2020 DX XR WRIST RT MIN 3V from 10/03/2020 FINDINGS: Healing nondisplaced fractures noted transverse in nature involving the distal radius as previously described. Fracture line is less visible. There is generalized vascular calcification. . IMPRESSION: Healing nondisplaced fracture distal radius Dictated by: Ziggy Ruiz MD 11/07/2020 13:10 Ziggy Ruiz MD in [place] 11/07/2020 13:10
== END ==
PROVIDERS: PCP Internal Medicine Adolescent Medicine; Visit Provider Orthopaedic Surgery
DX: S52.501A Unspecified fracture of the lower end of right radius, initial encounter for closed fracture (principal)
CPT/HCPCS: 73110

== ENCOUNTER 2021-10-23 10:07 | Emergency (ER) | payer MEDICARE, SELFPAY ==
[2021-10-23 10:08] VITALS: BP 125/56; PULSE 80; RESP 22; TEMP 37.6; O2SAT 96; BMI 27.7
--- NOTE | 2021-10-23 10:27 | XR_ITS ---
FINAL REPORT TECHNIQUE: Chest PA & Lateral CLINICAL HISTORY: COUGH, weakness COMPARISON: July 27, 2019 FINDINGS: 2 views of the chest were performed. The heart size is normal. There are multiple sternotomy wires. The mediastinum is within normal limits. There are mild chronic changes in both lungs. There are no pleural effusions. There is no pneumothorax. The bony thorax appears intact. IMPRESSION: No acute cardiopulmonary process. Reviewed, Interpreted and Dictated by Timo Britt MD Transcribed by Akin Lei Authenticated by Timo Britt MD on 10/23/2021 11:28:[address] [facility]
[2021-10-23 10:45] LABS: Basophils % 0.4 % (0.1-2.0); Eosinophils # 0.1 K/mm3 (0.0-0.4); Eosinophils % 1.5 % (0.1-12.0); Hematocrit 34.1 % (37.0-47.0); Hemoglobin 10.4 g/dL (12.2-16.2); Lymphocytes # 0.6 K/mm3 (0.7-4.5); Lymphocytes % 10.7 % (10-50); Mean Corpuscular HGB Conc 30.5 g/dL (31.8-35.4); Mean Corpuscular Hemoglobin 28.9 pg (27.0-31.2); Mean Corpuscular Volume 94.7 fl (81-99); Monocytes # 0.2 K/mm3 (0.1-1.0); Monocytes % 3.8 % (1.7-9.3); Neutrophils # 4.5 K/mm3 (1.8-7.8); Neutrophils % 83.5 % (37.0-80.0); Platelet Count 194 K/mm3 (142-424); Red Cell Distribution Width 15.2 % (11.5-17.5); White Blood Count 5.4 K/mm3 (4.8-10.8)
[2021-10-23 11:05] LABS: Alanine Aminotransferase 12 U/L (12-78); Albumin Level 3.7 g/dl (3.5-5.0); Alkaline Phosphatase 119 U/L (38-126); Anion Gap 15.4 mEq/L (5-15); Aspartate Amino Transferase 30 U/L (14-36); Bilirubin,Total 0.3 mg/dl (0.2-1.3); Blood Urea Nitrogen 35 mg/dl (7-17); Calcium 8.5 mg/dl (8.4-10.2); Carbon Dioxide 17 mmol/L (22.0-30.0); Chloride 107 mmol/L (98-107); Creatinine Clearance Estimated 30 mL/min (50-200); Estimated Glomerular Filt Rate 28 ml/min (>60); GFR (African American) 34 ML/MIN (>60); Globulin 3.6 g/dL (1.3-3.2); Glucose 151 mg/dl (74-100); Potassium 5.4 mmoL/L (3.5-5.1); Sodium 134 mmol/L (136-145); Total Protein,Serum 7.3 g/dl (6.3-8.2)
--- NOTE | 2021-10-23 11:05 | HMH.EDGENADL ---
ED Disposition Clinical Impression: Influenza A, Dehydration Disposition: Home, Self-Care Condition on Discharge: Good Instructions: DI for Influenza -- Adult, DI for Dehydration -- Adult Additional Instructions: Tamiflu as prescribed. Zofran as needed for nausea or vomiting. Tessalon as needed for cough. Tylenol or ibuprofen for pain and fever. Rest and drink plenty of fluids. Follow-up next week with primary care provider if not improved. Prescriptions: Benzonatate [Benzonatate 100mg cap] 100 mg PO TIDP PRN #15 cap PRN Reason: Cough Transmission Status: Pending to [facility] Oseltamivir Phosphate [Tamiflu 75mg Capsule] 75 mg PO BID #10 cap Transmission Status: Pending to [facility] Ondansetron [Zofran 4mg ODT] 4 mg PO TIDP PRN #10 tab PRN Reason: Nausea And Vomiting Transmission Status: Pending to [facility] Referrals: Ethan Lewis MD [Primary Care Provider] - - Critical Care Critical Care Time: No Attestation: On 10/23/21, the high probability of a clinically significant, sudden or life threatening deterioration of the following system(s) required my full and direct attention, intervention and personal management. The time I documented below is in addition to time spent performing reported procedures but includes the following listed in this critical care notation. Medical Decision Making - Brennon Inquiry Pt receiving controlled substance: No Vital Signs: 10/23/21 10:08 Temperature 99.6 F Temperature Source Oral Pulse Rate [Radial] 80 Respiratory Rate 22 Blood Pressure [Right Arm] 125/56 L Blood Pressure Mean [Right Arm] 79 Blood Pressure Position [Right Arm] Sitting 02 Sat by Pulse Oximetry 96 Oxygen Delivery Method Room Air - Lab Data Lab Results 10/23/21 10:34: WBC 5.4, RBC 3.60 L, Hgb 10.4 L, Hct 34.1 L, MCV 94.7, MCH 28.9, MCHC 30.5 L, RDW 15.2, Plt Count 194, MPV 9.0, Neut % (Auto) 83.5 H, Lymph % (Auto) 10.7, [place] % (Auto) 3.8, Eos % (Auto) 1.5, Baso % (Auto) 0.4, Neut # (Auto) 4.5, Lymph # (Auto) 0.6 L, [place] # (Auto) 0.2, Eos # (Auto) 0.1, Baso # (Auto) 0.0 10/23/21 10:34: Sodium 134 L, Potassium 5.4 H, Chloride 107, Carbon Dioxide 17 L, Anion Gap 15.4 H, BUN 35 H, Creatinine 1.80 H, Estimated Creat Clear 30, Estimated GFR 28 L, Est GFR ( Amer) 34 L, Glucose 151 H, Calcium 8.5, Total Bilirubin 0.3, AST 30, ALT 12, Alkaline Phosphatase 119, Total Protein 7.3, Albumin 3.7, Globulin 3.6 H, Albumin/Globulin Ratio 1.0 L 10/23/21 10:40: SARS-CoV-2 (PCR) Not detected, Influenza A Untype (PCR) Detected A, Influenza Type B (PCR) Not detected Result diagrams: 10/23/21 10:34 10/23/21 10:34 Orders (Tests/Meds): ED MEDICATIONS Discontinued Medications Generic Name Dose Route Start Last Admin Trade Name Freq PRN Reason Stop Dose Admin Sodium Chloride 1,000 ml 10/23/21 11:13 10/23/21 11:15 Sodium Chloride 0.9% 1000ml Bag IV 10/23/21 11:14 1,000 ml BOLUS ONE Administration - Radiology Data #1 Image(s): Chest Image Reviewed: Yes I reviewed the patient's radiology image, Yes I have reviewed radiologist's interpretation Preliminary Findings: Normal/NAD Procedure(s): XR chest 2V Accession Number(s): [id number] cc: Ethan Lewis MD; Timo Britt MD~ FINAL REPORT TECHNIQUE: Chest PA & Lateral CLINICAL HISTORY: COUGH, weakness COMPARISON: July 27, 2019 FINDINGS: 2 views of the chest were performed. The heart size is normal. There are multiple sternotomy wires. The mediastinum is within normal limits. There are mild chronic changes in both lungs. There are no pleural effusions. There is no pneumothorax. The bony thorax appears intact. IMPRESSION: No acute cardiopulmonary process. Reviewed, Interpreted and Dictated by Timo Britt MD Transcribed by Akin Lei Authenticated by Timo Britt MD on 10/23/2021 11:28:44 AM [facility] Adult HPI - Ge
[2021-10-23 11:10] LABS: Coronavirus 19, PCR Not Detected (NotDetected); Influenza B, PCR Not Detected (NotDetected)
[2021-10-23 11:30] LABS: Influenza A, PCR Detected (NotDetected)
[2021-10-23 12:00] VITALS: BP 147/60; PULSE 74; RESP 16; O2SAT 96
[2021-10-23 12:34] VITALS: BP 147/60; PULSE 75; RESP 18; TEMP 37.6; O2SAT 93
== END 2021-10-23 12:34 | disposition home or self-care (01) ==
PROVIDERS: Emergency Provider Emergency Medicine; PCP Internal Medicine Adolescent Medicine
DX: J10.1 Influenza due to other identified influenza virus with other respiratory manifestations (principal); E86.0 Dehydration; E11.9 Type 2 diabetes mellitus without complications; I10 Essential (primary) hypertension; F17.210 Nicotine dependence, cigarettes, uncomplicated
CPT/HCPCS: 71046; 80053; 85025; 96365; 99283; C9803; U0003; U0005

== ENCOUNTER 2022-06-26 16:55 | Inpatient (IN) | payer MEDICARE, SELFPAY ==
[2022-06-26] VITALS (13 sets, daily range): BP systolic 131–194; BP diastolic 50–80; PULSE 76–100; RESP 18–20; TEMP 36.8–37.2; O2SAT 83–95; BMI 26.4; BMI 26.1
--- NOTE | 2022-06-26 17:48 | XR_ITS ---
PROCEDURE INFORMATION: Exam: XR Chest Exam date and time: 06/26/2022 6:06 PM Age: 71 years old Clinical indication: Other: Weakness; Patient HX: Smoker TECHNIQUE: Imaging protocol: Radiologic exam of the chest. Views: 1 view. COMPARISON: CR XR CHEST 2V 10/23/2021 10:29 AM FINDINGS: Lungs: No evidence of pneumonia or interstitial edema. Pleural spaces: Unremarkable. No pleural effusion. No pneumothorax. Heart/Mediastinum: No cardiomegaly. Bones/joints: Sternotomy wires and mediastinal surgical clips are present, consistent with previous coronary arterial bypass grafting. Intramedullary rito in the right humerus is re-identified IMPRESSION: No evidence of pneumonia or interstitial edema.
[2022-06-26 18:06] LABS: Coronavirus 19, PCR Not Detected (NotDetected); Influenza B, PCR Not Detected (NotDetected)
[2022-06-26 18:08] LABS: Chloride 104 mmol/L (98-107)
[2022-06-26 18:09] LABS: Potassium 4.7 mmoL/L (3.5-5.1); Sodium 136 mmol/L (136-145)
[2022-06-26 18:11] LABS: Alanine Aminotransferase 16 U/L (12-78); Aspartate Amino Transferase 44 U/L (14-36); Blood Urea Nitrogen 44 mg/dl (7-17); Creatinine Clearance Estimated 23 mL/min (50-200); Estimated Glomerular Filt Rate 21 ml/min (>60); GFR (African American) 25 ML/MIN (>60)
[2022-06-26 18:12] LABS: Albumin Level 3.4 g/dl (3.5-5.0); Alkaline Phosphatase 128 U/L (38-126); Anion Gap 13.7 mEq/L (5-15); Bilirubin,Total 0.2 mg/dl (0.2-1.3); Calcium 8.6 mg/dl (8.4-10.2); Carbon Dioxide 23 mmol/L (22.0-30.0); Globulin 3.5 g/dL (1.3-3.2); Glucose 133 mg/dl (74-100); Total Protein,Serum 6.9 g/dl (6.3-8.2)
[2022-06-26 18:40] LABS: Basophils % 0.4 % (0.1-2.0); Eosinophils % 0.1 % (0.1-12.0); Hematocrit 33.7 % (37.0-47.0); Hemoglobin 9.9 g/dL (12.2-16.2); Lymphocytes # 0.6 K/mm3 (0.7-4.5); Lymphocytes % 10.2 % (10-50); Mean Corpuscular HGB Conc 29.3 g/dL (31.8-35.4); Mean Corpuscular Hemoglobin 27.9 pg (27.0-31.2); Mean Corpuscular Volume 95.2 fl (81-99); Mean Platelet Volume 8.2 fl (7.4-10.4); Monocytes # 0.2 K/mm3 (0.1-1.0); Monocytes % 3.5 % (1.7-9.3); Neutrophils # 5.4 K/mm3 (1.8-7.8); Neutrophils % 85.8 % (37.0-80.0); Platelet Count 175 K/mm3 (142-424); Red Blood Count 3.54 M/mm3 (4.20-5.40); Red Cell Distribution Width 14.2 % (11.5-17.5); White Blood Count 6.3 K/mm3 (4.8-10.8)
[2022-06-26 18:42] LABS: MANUAL DIFFERENTIAL MANUAL DIFFERENTIAL (MANUAL DIFF)
[2022-06-26 18:57] LABS: Hypochromasia 1+; Lymphocytes % 8 % (10-50); Monocytes % 2 % (2-9); Neutrophils % 83 % (42-76); Platelet Estimate Normal; Total Cells Counted 100
[2022-06-26 19:06] LABS: Influenza A, PCR Detected (NotDetected)
--- NOTE | 2022-06-26 19:07 | HMH.EDGENADL ---
Discharge Plan Disposition Patient Disposition: Admitted as Observation Condition: Fair Clinical Impressions Clinical Impression: Influenza A, Acute respiratory failure with hypoxia Discharge ED Provider: Clovis Bishop General Adult HPI General Chief complaint: Weakness Stated complaint: Not ate in 3 or 4 days, Cough,Congestion Time Seen by Provider: 06/26/22 19:00 Mode of Arrival: Ambulatory Source of Information: Patient Limitations: No Limitations Description of Symptoms (Recalled from ER Triage Doc. by RN): pt to ed c/o weakness, decrease in appetite and shortness of breath x2 days. History of Present Illness HPI narrative: Patient states she has been sick for about 3 to 4 days. She has generalized malaise and weakness, decreased appetite. She has a runny nose and a cough, but no sore throat. Chest congestion and trouble breathing. Body aches and headache. She has not documented her temperature. No known exposures to any illnesses. She says that she got a flu vaccine about a week ago. Nurse knows hypoxia on pulse ox on arrival. She has been placed on 2 L nasal cannula prior to my arrival. She is a smoker. She says she has not been diagnosed with COPD. Related Data Home Medications Medication Instructions Recorded Confirmed insulin glargine 100 unit/mL (3 14 unit SQ HS Diabetes 31 days 08/10/18 11/07/20 mL) subcutaneous pen #4.34 mL Previous Rx's Medication Instructions Recorded amlodipine 5 mg tablet 2.5 mg PO DAILY Hypertension #60 12/28/19 tabs atorvastatin 80 mg tablet 80 mg PO DAILY CHOLESTROL #90 tabs 05/01/21 benzonatate 100 mg capsule 100 mg PO TIDP PRN Cough #15 caps 10/23/21 ondansetron 4 mg disintegrating 4 mg PO TIDP PRN Nausea And 10/23/21 tablet Vomiting #10 tabs oseltamivir 75 mg capsule 75 mg PO BID #10 caps 10/23/21 aspirin 81 mg tablet,delayed 81 mg PO DAILY circulation #90 tabs 01/26/22 release (Adult Low Dose Aspirin) losartan 50 mg tablet 50 mg PO DAILY #90 tabs 02/22/22 metoprolol succinate 25 mg 25 mg PO DAILY #90 tabs 02/22/22 tablet,extended release 24 hr (Toprol XL) clopidogrel 75 mg tablet See Rx Instructions .Route 05/31/22 .COMPLEX #90 tabs Allergies Allergy/AdvReac Type Severity Reaction Status Date / Time No Known Allergies Allergy Verified 05/01/21 11:42 [facility] Medical History (Updated 06/26/22 @ 19:23 by Clovis Bishop MD) Atrial fibrillation CAD (coronary artery disease) Surgical History (Updated 08/10/18 @ 10:06 by Jessica Hare RN) S/P coronary artery bypass graft x 3 Social History Smoking Status: Never smoker second hand exposure: Yes alcohol intake: never substance use type: denies use current occupational status: unemployed and retired Travel in the last 8 weeks: Inside the [place] household members: spouse housing: house current occupational exposures/hazards: No caffeine: Yes ROS Obtained: Yes Systems reviewed as appropriate & no additional complaints except as documented Constitutional Constitutional: Reports body ache, Reports fatigue, Denies fever(s), Reports headache(s), Reports poor appetite, Reports malaise and Reports weakness ENT Ears, Nose, Mouth, and Throat: Reports headache(s), Reports nasal discharge and Denies sore throat Cardiovascular Cardiovascular: Denies chest pain Respiratory Respiratory: Reports shortness of breath and Reports cough Gastrointestinal Gastrointestingal: Denies abdominal pain, constipation, diarrhea or vomiting Genitourinary Female Genitourinary: Denies difficulty voiding, Denies dysuria and Denies flank pain Musculoskeletal Musculoskeletal: Denies numbness Neurologic Neurologic: Reports headache(s), Denies numbness and Reports weakness Endocrine Endocrine: Reports fatigue Physical Exam General General appearance: alert and in no apparent distress Head Head exam: atraumatic and normocephalic Eye Eye exam: Present normal appearance and EOMI
--- NOTE | 2022-06-26 19:53 | PC.NURSE ---
Dr. Bishop speaking with the hospitalist at this time
--- NOTE | 2022-06-26 20:24 | PC.NURSE ---
Rechecked pt condition. No needs or complaints voiced at this time.
[2022-06-26 21:12] LABS: Procalcitonin 0.225 ng/mL (0.0-2.0)
--- NOTE | 2022-06-26 21:33 | PC.NURSE ---
pt arrived via wheelchair @ 2131.
--- NOTE | 2022-06-26 21:39 | EXP.HP ---
History of Present Illness *Admission Date: 06/26/22 *Reason for visit:: Flulike symptoms *History of present illness: This is a 71-year-old female with past medical history of CAD, atrial fibrillation, diabetes who presents emergency department today with 5 days of generalized malaise fatigue, cough, congestion, generalized body aches. She reports the generalized symptoms but denies any overt shortness of breath. She does report being at a large Thanksgiving get together but does not know if anybody had respiratory illnesses. She is COVID and flu vaccinated. Emergency department work-up significant for flu a positive. She also has a mild NAHUM with creatinine of 2.3 with baseline of 1.8. She is hypoxic into the mid 80s requiring 2 L nasal cannula and is oxygenating well. Chest x-ray without infiltrates. Due to the above-mentioned complaint should be admitted to the hospital service for further evaluation and management. [facility] Medical History (Updated 06/26/22 @ 21:48 by EMELY Galvan) Atrial fibrillation CAD (coronary artery disease) Surgical History (Updated 08/10/18 @ 10:06 by Jessica Hare RN) S/P coronary artery bypass graft x 3 Social History Smoking Status: Never smoker second hand exposure: Yes alcohol intake: never substance use type: denies use current occupational status: unemployed and retired Travel in the last 8 weeks: [place] the [place] household members: spouse housing: house current occupational exposures/hazards: No caffeine: Yes Review of Systems Constitutional Constitutional: Reports system reviewed and no additional complaints, except as documented, Reports headache(s) and Reports weakness Eyes Eyes: Reports system reviewed and no additional complaints, except as documented ENT Ears, Nose, Mouth, and Throat: Reports system reviewed and no additional complaints, except as documented and Reports headache(s) *Cardiovascular Cardiovascular: Reports system reviewed and no additional complaints, except as documented *Respiratory Respiratory: Reports system reviewed and no additional complaints, except as documented *Gastrointestinal Gastrointestinal: Reports system reviewed and no additional complaints, except as documented *Genitourinary Genitourinary: Reports system reviewed and no additional complaints, except as documented *Musculoskeletal Musculoskeletal: Reports system reviewed and no additional complaints, except as documented and Denies numbness Integumentary/Breasts Skin/Breast: Reports system reviewed and no additional complaints, except as documented *Neurologic Neurologic: Reports system reviewed and no additional complaints, except as documented, Reports headache(s), Denies numbness and Reports weakness Psychiatric Psychiatric: Reports system reviewed and no additional complaints, except as documented Endocrine Endocrine: Reports system reviewed and no additional complaints, except as documented Hematologic/Lymphatic Hematologic/Lymphatic: Reports system reviewed and no additional complaints, except as documented Allergic/Immunologic Allergic/Immunologic: Reports system reviewed and no additional complaints, except as documented Meds Home Medications and Allergies Home Medications Medication Instructions Recorded Confirmed Type insulin glargine 100 unit/mL (3 14 unit SQ HS Diabetes 31 days 08/10/18 11/07/20 History mL) subcutaneous pen #4.34 mL amlodipine 5 mg tablet 2.5 mg PO DAILY Hypertension #60 12/28/19 05/01/21 Rx tabs atorvastatin 80 mg tablet 80 mg PO DAILY CHOLESTROL #90 tabs 05/01/21 05/01/21 Rx benzonatate 100 mg capsule 100 mg PO TIDP PRN Cough #15 caps 10/23/21 Rx ondansetron 4 mg disintegrating 4 mg PO TIDP PRN Nausea And 10/23/21 Rx tablet Vomiting #10 tabs oseltamivir 75 mg capsule 75 mg PO BID #10 caps 10/23/21 Rx aspirin 81 mg tablet,delayed 81 mg PO DAILY circulation #90 tabs 01/26/22 Rx release (Adult Low Dose Aspirin)
[2022-06-27] VITALS (12 sets, daily range): BP systolic 119–182; BP diastolic 53–78; PULSE 68–117; RESP 16–20; TEMP 36.6–37.8; O2SAT 90–98; BMI 26.2
[2022-06-27 05:37] LABS: POC Glucose,Bedside 242 (70-110)
--- NOTE | 2022-06-27 05:41 | PC.NURSE ---
Pt a/ox4. Pt has not voiced any c/o to staff. Tolerating 2L nc well with sats >90%. Fine crackles heard in left lower base. Has slept well since arriving to floor. Ambulates to BR with standby assist. Pt did have 1 episode of incontinence of bowels. Pt bathed. Call light within reach.
[2022-06-27 07:24] LABS: Eosinophils % 0.1 % (0.1-12.0); Hematocrit 33.5 % (37.0-47.0); Hemoglobin 9.6 g/dL (12.2-16.2); Lymphocytes # 0.6 K/mm3 (0.7-4.5); Lymphocytes % 10.7 % (10-50); Mean Corpuscular HGB Conc 28.8 g/dL (31.8-35.4); Mean Corpuscular Volume 97.2 fl (81-99); Mean Platelet Volume 8.3 fl (7.4-10.4); Monocytes # 0.2 K/mm3 (0.1-1.0); Monocytes % 2.8 % (1.7-9.3); Neutrophils % 86.5 % (37.0-80.0); Platelet Count 149 K/mm3 (142-424); Red Blood Count 3.45 M/mm3 (4.20-5.40); Red Cell Distribution Width 14.2 % (11.5-17.5); White Blood Count 5.8 K/mm3 (4.8-10.8)
[2022-06-27 07:28] LABS: MANUAL DIFFERENTIAL MANUAL DIFFERENTIAL (MANUAL DIFF)
[2022-06-27 07:32] LABS: Anion Gap 22.4 mEq/L (5-15); Blood Urea Nitrogen 50 mg/dl (7-17); Calcium 8.2 mg/dl (8.4-10.2); Carbon Dioxide 20 mmol/L (22.0-30.0); Chloride 98 mmol/L (98-107); Creatinine Clearance Estimated 23 mL/min (50-200); Estimated Glomerular Filt Rate 21 ml/min (>60); GFR (African American) 25 ML/MIN (>60); Glucose 240 mg/dl (74-100); Potassium 4.4 mmoL/L (3.5-5.1); Sodium 136 mmol/L (136-145)
--- NOTE | 2022-06-27 09:22 | HMH.PHAINT1 ---
Pharmacy Intervention Comments: MEDICATION RECONCILIATION COMPLETED ON PATIENT USING EXTERNAL FILL HISTORY FROM PHARMACY. -CYNDI CONTRERAS, JLD
[2022-06-27 11:24] LABS: Lymphocytes % 11 % (10-50); Neutrophils % 86 % (42-76); Platelet Estimate Slight Decrease; RBC Morphology Normal; Total Cells Counted 100
[2022-06-27 11:33] LABS: POC Glucose,Bedside 305 (70-110)
--- NOTE | 2022-06-27 15:09 | EXP.ACUTE.PN ---
Subjective *Date: 06/27/22 *Time: 15:09 Interval history: No issues overnight. Woke up this morning and was communicative. Says she feels okay. Has not smoked in 6 days. No concerns or complaints Medical Exam Vital signs and Labs for Last 24 Hours: Vital Signs Temp Pulse Pulse Resp BP BP Pulse Ox 06/27/22 12:00 98.4 F 92 H 16 147/57 H 93 L 06/27/22 11:43 80 06/27/22 11:43 68 06/27/22 11:43 95 06/27/22 08:00 97.9 F 74 20 119/53 L 98 06/27/22 06:30 68 06/27/22 06:30 69 06/27/22 06:30 93 L 06/27/22 04:00 97.8 F 78 20 165/68 H 96 06/27/22 00:28 06/27/22 00:27 83 06/27/22 00:27 79 06/26/22 23:39 98.9 F 76 20 131/50 L 93 L 06/26/22 23:26 95 06/26/22 21:32 98.4 F 80 18 183/68 H 95 06/26/22 21:01 96 H 163/75 H 92 L 06/26/22 20:30 100 H 194/80 H 94 L 06/26/22 20:55 98.2 F 84 18 194/80 H 06/26/22 19:30 90 185/80 H 94 L 06/26/22 19:00 78 172/68 H 94 L 06/26/22 19:32 81 06/26/22 19:31 84 06/26/22 18:09 85 18 155/70 H 92 L 06/26/22 17:46 84 18 170/61 H 92 L 06/26/22 17:43 98.2 F 97 H 20 151/62 H 83 L FiO2 06/27/22 12:00 06/27/22 11:43 06/27/22 11:43 06/27/22 11:43 06/27/22 08:00 06/27/22 06:30 06/27/22 06:30 06/27/22 06:30 06/27/22 04:00 06/27/22 00:28 28 06/27/22 00:27 06/27/22 00:27 06/26/22 23:39 06/26/22 23:26 06/26/22 21:32 06/26/22 21:01 06/26/22 20:30 06/26/22 20:55 06/26/22 19:30 06/26/22 19:00 06/26/22 19:32 06/26/22 19:31 06/26/22 18:09 06/26/22 17:46 06/26/22 17:43 Intake and Output 06/26/22 06/27/22 06/27/22 23:59 07:59 15:59 Intake Total 307 / 427 120 / 427 Output Total 0 / 0 Balance 307 / 427 120 / 427 Intake: Intake, Oral Amount 120 / 120 Intake, Total IV Amount 307 / 307 0.9 % Sodium Chloride 1,000 ml 307 / 307 @ 75 mls/hr IV .[id number] [facility] Rx# :[id number] Output: Output, Urine Amount 0 / 0 Other: Number of Unmeasured Voids 1 Weight 62.737 kg 63.163 kg Patient Weight 06/27/22 23:59 Weight 63.163 kg Laboratory Results - last 24 hr 06/26/22 17:54: WBC 6.3, RBC 3.54 L, Hgb 9.9 L, Hct 33.7 L, MCV 95.2, MCH 27.9, MCHC 29.3 L, RDW 14.2, Plt Count 175, MPV 8.2, Neut % (Auto) 85.8 H, Lymph % (Auto) 10.2, [place] % (Auto) 3.5, Eos % (Auto) 0.1, Baso % (Auto) 0.4, Neut # (Auto) 5.4, Lymph # (Auto) 0.6 L, [place] # (Auto) 0.2, Eos # (Auto) 0.0, Baso # (Auto) 0.0, Total Counted 100, Neutrophils % (Manual) 83 H, Band Neutrophils % 7.0, Lymphocytes % (Manual) 8 L, Monocytes % (Manual) 2, Platelet Estimate Normal, Hypochromasia 1+ 06/26/22 17:54: Sodium 136, Potassium 4.7, Chloride 104, Carbon Dioxide 23, Anion Gap 13.7, BUN 44 H, Creatinine 2.30 H, Estimated Creat Clear 23, Estimated GFR 21 L, Est GFR ([facility] Am) 25 L, Glucose 133 H, Calcium 8.6, Total Bilirubin 0.2, AST 44 H, ALT 16, Alkaline Phosphatase 128 H, Total Protein 6.9, Albumin 3.4 L, Globulin 3.5 H, Albumin/Globulin Ratio 1.0 L 06/26/22 17:54: SARS-CoV-2 (PCR) Not detected, Influenza A Untype (PCR) Detected A, Influenza Type B (PCR) Not detected 06/26/22 17:54: Procalcitonin 0.225 06/27/22 05:31: POC Glucose 242 H 06/27/22 06:46: WBC 5.8, RBC 3.45 L, Hgb 9.6 L, Hct 33.5 L, MCV 97.2, MCH 28.0, MCHC 28.8 L, RDW 14.2, Plt Count 149, MPV 8.3, Neut % (Auto) 86.5 H, Lymph % (Auto) 10.7, [place] % (Auto) 2.8, Eos % (Auto) 0.1, Baso % (Auto) 0.0 L, Neut # (Auto) 5.0, Lymph # (Auto) 0.6 L, [place] # (Auto) 0.2, Eos # (Auto) 0.0, Baso # (Auto) 0.0, Total Counted 100, Neutrophils % (Manual) 86 H, Band Neutrophils % 3.0, Lymphocytes % (Manual) 11, Platelet Estimate Slight decrease, RBC Morphology Normal 06/27/22 06:46: Sodium 136, Potassium 4.4, Chloride 98, Carbon Dioxide 20 L, Anion Gap 22.4 H, BUN 50 H, Creatinine 2.30 H, Estimated Creat Clear 23, Estimated GFR 21 L, Est GFR (
[2022-06-27 16:50] LABS: POC Glucose,Bedside 385 (70-110)
[2022-06-27 18:40] LABS: VBG Base Excess -9.4 mmol/L (-2.4-2.3); VBG HCO3 17.8 mmol/L (23-30); VBG Oxygen Saturation 58.6 % (50-70); VBG PCO2 41.4 mmol/L (35-51); VBG PH 7.25 mmol/L (7.31-7.41); VBG Total CO2 19.1 mmol/L (23-27)
[2022-06-27 20:12] LABS: POC Glucose,Bedside 167 (70-110)
[2022-06-28] VITALS (10 sets, daily range): BP systolic 111–149; BP diastolic 47–83; PULSE 64–116; RESP 18–38; TEMP 36.6–37.9; O2SAT 90–95; BMI 26.7
[2022-06-28 07:01] LABS: POC Glucose,Bedside 119 (70-110)
[2022-06-28 08:05] LABS: Basophils % 0.5 % (0.1-2.0); Eosinophils % 0.2 % (0.1-12.0); Hematocrit 30.4 % (37.0-47.0); Lymphocytes # 0.4 K/mm3 (0.7-4.5); Lymphocytes % 14.8 % (10-50); Mean Corpuscular HGB Conc 32.9 g/dL (31.8-35.4); Mean Corpuscular Hemoglobin 31.1 pg (27.0-31.2); Mean Corpuscular Volume 94.6 fl (81-99); Mean Platelet Volume 8.9 fl (7.4-10.4); Monocytes # 0.1 K/mm3 (0.1-1.0); Monocytes % 1.9 % (1.7-9.3); Neutrophils # 2.2 K/mm3 (1.8-7.8); Neutrophils % 82.6 % (37.0-80.0); Platelet Count 174 K/mm3 (142-424); Red Blood Count 3.22 M/mm3 (4.20-5.40); Red Cell Distribution Width 14.9 % (11.5-17.5); White Blood Count 2.7 K/mm3 (4.8-10.8)
[2022-06-28 08:13] LABS: Alanine Aminotransferase 18 U/L (12-78); Albumin Level 2.7 g/dl (3.5-5.0); Albumin/Globulin Ratio 0.9 (1.1-1.8); Alkaline Phosphatase 100 U/L (38-126); Aspartate Amino Transferase 38 U/L (14-36); Bilirubin,Total 0.3 mg/dl (0.2-1.3); Blood Urea Nitrogen 62 mg/dl (7-17); Calcium 8.2 mg/dl (8.4-10.2); Carbon Dioxide 20 mmol/L (22.0-30.0); Chloride 99 mmol/L (98-107); Creatinine Clearance Estimated 23 mL/min (50-200); Estimated Glomerular Filt Rate 21 ml/min (>60); GFR (African American) 25 ML/MIN (>60); Globulin 3.1 g/dL (1.3-3.2); Glucose 119 mg/dl (74-100); Magnesium 1.7 mg/dl (1.6-2.3); Phosphorous 3.7 mg/dl (2.5-4.5); Sodium 135 mmol/L (136-145); Total Protein,Serum 5.8 g/dl (6.3-8.2)
[2022-06-28 12:08] LABS: POC Glucose,Bedside 133 (70-110)
--- NOTE | 2022-06-28 13:25 | EXP.ACUTE.PN ---
Subjective *Date: 06/28/22 *Time: 14:59 Interval history: No acute events overnight. Patient states that she is feeling better overall. She is having bowel movements and urinating. She is tolerating diet. No other concerns or complaints at this time. Medical Exam Vital signs and Labs for Last 24 Hours: Vital Signs Temp Pulse Pulse Resp BP Pulse Ox FiO2 06/28/22 11:00 72 18 06/28/22 12:41 73 06/28/22 12:41 72 06/28/22 08:00 97.8 F 85 18 111/47 L 93 L 06/28/22 06:15 64 06/28/22 06:15 67 06/28/22 06:15 92 L 06/28/22 03:37 100.3 F H 96 H 20 116/59 L 93 L 06/27/22 20:00 93 L 06/27/22 23:21 98.4 F 75 20 143/70 H 93 L 06/27/22 23:21 77 06/27/22 23:20 77 06/27/22 19:25 71 06/27/22 19:25 81 06/27/22 19:24 32 06/27/22 19:20 100.0 F H 111 H 20 145/56 H 93 L 06/27/22 16:00 100 F H 117 H 20 182/78 H 90 L Intake and Output 06/27/22 06/28/22 06/28/22 23:59 07:59 15:59 Intake Total 539 / 966 Output Total 0 / 0 Balance 539 / 966 0 / 0 Intake: Intake, Oral Amount 240 / 360 Intake, Total IV Amount 299 / 606 0.9 % Sodium Chloride 1,000 ml 299 / 299 @ 75 mls/hr IV .[id number] [facility] Rx# :[id number] Output: Output, Urine Amount 0 / 0 Other: Number of Unmeasured Voids 1 Number of Bowel Movements 1 Weight 63.163 kg 64.212 kg Patient Weight 06/28/22 23:59 Weight 64.212 kg Laboratory Results - last 24 hr 06/27/22 16:43: POC Glucose 385 H* 06/27/22 18:25: VBG pH 7.25 L, VBG pCO2 41.4, VBG pO2 33.0, VBG HCO3 17.8 L, VBG Total CO2 19.1 L, VBG O2 Saturation 58.6, VBG Base Excess -9.4 L 06/27/22 20:06: POC Glucose 167 H 06/28/22 06:54: POC Glucose 119 H 06/28/22 07:25: WBC 2.7 L D, RBC 3.22 L, Hgb 10.0 L, Hct 30.4 L, MCV 94.6, MCH 31.1, MCHC 32.9, RDW 14.9, Plt Count 174, MPV 8.9, Neut % (Auto) 82.6 H, Lymph % (Auto) 14.8, [place] % (Auto) 1.9, Eos % (Auto) 0.2, Baso % (Auto) 0.5, Neut # (Auto) 2.2, Lymph # (Auto) 0.4 L, [place] # (Auto) 0.1, Eos # (Auto) 0.0, Baso # (Auto) 0.0 06/28/22 07:25: Sodium 135 L, Potassium 4.0, Chloride 99, Carbon Dioxide 20 L, Anion Gap 20.0 H, BUN 62 H, Creatinine 2.30 H, Estimated Creat Clear 23, Estimated GFR 21 L, Est GFR ( Amer) 25 L, Glucose 119 H, Calcium 8.2 L, Phosphorus 3.7, Magnesium 1.7, Total Bilirubin 0.3, AST 38 H, ALT 18, Alkaline Phosphatase 100, Total Protein 5.8 L, Albumin 2.7 L, Globulin 3.1, Albumin/Globulin Ratio 0.9 L 06/28/22 12:01: POC Glucose 133 H I & O for Labs for Last 24 Hours: Intake & Output 06/25/22 06/26/22 06/27/22 06/28/22 23:59 23:59 23:59 23:59 Intake Total 966 / 966 Output Total 0 / 0 0 / 0 Balance 966 / 966 0 / 0 Weight 62.737 kg 63.163 kg 64.212 kg Constitutional: Present no acute distress, cachectic and disheveled Head: Present normocephalic ENT: Present normal exam Neck: Present normal inspection Respiratory: Present wheezes and diminished air movement; Absent accessory muscle use or respiratory distress Cardiac: Present Reg Rate and Rhythm and No Murmur GI: Present soft; Absent tenderness Rectal (female): Present deferred (female): Present deferred Extremities: Present normal inspection; Absent tenderness or edema Skin: Present intact and dry Assessment and Plan *Assessment and plan (1) Influenza A: Status: Acute Category: Medical Code(s): J10.1 - Influenza due to other identified influenza virus with other respiratory manifestations (2) Hypertension: Status: Chronic Qualifiers: Hypertension type: essential hypertension Qualified Code(s): I10 - Essential (primary) hypertension Category: Medical Code(s): I10 - Essential (primary) hypertension (3) Anemia: Status: Resolved Qualifiers: Anemia type: unspecified type Qualified Code(s): D64.9 - Anemia, unspecified Category: Medical
--- NOTE | 2022-06-28 13:34 | US_ITS ---
FINAL REPORT TECHNIQUE: Sonographic images were obtained of the retroperitoneum. CLINICAL HISTORY: CKD FINDINGS: The right kidney measures 10.3 cm. The left kidney measures 8.5 cm. Mild global parenchymal atrophy of the right kidney. Severe parenchymal atrophy of the left kidney with increased echogenicity of the parenchyma probably due to sclerosis. No hydronephrosis. The spleen measures 10.6 cm. IMPRESSION: Left greater than right renal atrophy. Reviewed, Interpreted and Dictated by Kathy Calloway MD Transcribed by Akin Lei Authenticated and . [facility]
--- NOTE | 2022-06-28 15:11 | CA_ITS ---
APPROVED REPORT EXAM: Comprehensive 2D, Doppler, and color-flow Echocardiogram Lead Sharepoint Developer: Jadyn Pineda CRT Ht: 5 ft 1 in Wt: 141lbs BSA: 1.63 BP: 143/70 mmHg Indications: FLU, Congestive Heart Failure, Atrial Fibrillation, Diabetes, Hypertension/HDD, CABG, SOB 2D Dimensions LVOT 1.77 cm (M/F) 1.5-2.5 LA Volume 45.60 mL LA Volume Index 27.30 mL/m2 (M/F) 16-34 M-Mode Dimensions RVDd 3.06 cm (0.9-2.6) LA Diam 4.05 cm (1.9-4.0) LVDd 4.23 cm (3.5-5.7) Ao Diam 3.23 cm (2.0-3.7) LVDs 3.09 cm (3.5-5.7) IVSd 1.25 cm (0.6-1.1) PWd 0.82 cm (0.6-1.1) EF (Teich) 52.90% FS 27.00% EDV (Teich) 79.90 mL TAPSE 1.13 (<1.7) ESV (Teich) 37.60 mL LV Diastology E Decel Time 193.00 (160-240 msec) E/A Ratio 1.28 MED E' 5.70 (< 7 cm/sec) MED A' 10.20 cm/s E'/MED E' Ratio 25.28 (>14) LAT E' 6.50 (<10 cm/sec) LAT A' 10.00 cm/s E/LAT E' Ratio 22.17 (>14) Aortic Valve AO Peak GR. 6.90 mmHg Mitral Valve MV A Velocity 113.00 (40-130 cm/s) E/A Ratio 1.28 MV Decel. Time 193.00 (160-240 ms) Pulmonary Valve PV Peak Velocity 138.00 (50-150 cm/s) Tricuspid Valve TR P. Velocity 288.00 cm/s RAP Estimate 10.00 mmHg RVSP 43.10 mmHg Left Ventricle Left atrium is mildly enlarged, left ventricle is normal size, mild concentric left ventricular hypertrophy, estimated ejection fraction 55% with no regional wall motion abnormality, grade 2 diastolic dysfunction seen with tissue Doppler evidence of raise left atrial pressure. Right Ventricle Right atrium and right ventricle are mildly enlarged with normal contractility. Aortic Valve Aortic valve is thickened and calcified without aortic stenosis or aortic insufficiency. Mitral Valve Mitral valve has mitral calcification, there is no mitral stenosis, there is mild mitral regurgitation. Tricuspid Valve Tricuspid valve grossly normal, there is mild tricuspid regurgitation, tricuspid regurgitation jet velocity is inadequate for calculation of the right ventricular systolic pressure. Pulmonic Valve Pulmonic valve is poorly visualized. Great Vessels Aortic root is normal size. Inferior vena cava is poorly visualized. Pericardium No significant pericardial effusion noted. Conclusion 1. Mild biatrial enlargement, normal left ventricular size, mild concentric left ventricular hypertrophy, estimated ejection fraction 55% with no regional wall motion abnormality, grade 2 diastolic dysfunction seen with tissue Doppler evidence of raise left atrial pressure. 2. Mildly enlarged right ventricle with normal contractility. 3. Mild mitral and tricuspid regurgitation. 4. No significant pericardial effusion. 5. Inferior vena cava is poorly visualized. Electronically signed by : Santos Sarkar MD 06/29/2022 07:01:10
[2022-06-28 15:46] LABS: Procalcitonin 2.84 ng/mL (0.0-2.0)
[2022-06-28 16:16] LABS: POC Glucose,Bedside 139 (70-110)
[2022-06-28 17:03] LABS: Microscopic, Urine URINE MICROSCOPIC (MICROSCOPIC)
[2022-06-28 17:54] LABS: Appearance,Urine CLOUDY (Clear); Bilirubin,Urine Negative (Negative); Blood, Urine 2+ (Negative); Color,Urine YELLOW (Yellow); Glucose,Urine (UA) Negative (Negative); Ketones,Urine Negative (Negative); Leukocyte Esterase,Urine 2+ (Negative); Nitrate,Urine Negative (Negative); Protein,Urine 3+ (Negative); Urobilinogen,Urine 0.2 EU/dl (0.2)
[2022-06-28 18:06] LABS: Bacteria,Urine 4+ /lpf
--- NOTE | 2022-06-28 19:23 | ECG_ITS ---
APPROVED REPORT Exam: Resting ECG HR:160 bpm ECG Measurements Heart Rate 160 AXES QRSd 72 QRS 31 QT 257 T 182 QTc 346 Conclusion ATRIAL FIBRILLATION WITH RAPID VENTRICULAR RESPONSE WITH ABERRANT CONDUCTION OR VENTRICULAR PREMATURE COMPLEXES ST DEVIATION AND MODERATE T-WAVE ABNORMALITY, CONSIDER LATERAL ISCHEMIA [-0.1+ mV T-WAVE IN I/aVL/V5/V6] CRITICAL TEST RESULT UNCONFIRMED REPORT Electronically signed by : Ethan Lewis MD 06/28/2022 21:06:49
[2022-06-28 19:25] LABS: Occult Blood,Stool Positive (Negative)
--- NOTE | 2022-06-28 19:31 | PC.NURSE ---
pt noted to have an elevated HR of 150-170. pt is asymptomatic but o2 saturation is in the 80s. contacted resp for a stat ekg and called hospitalist who cant to bedside. pt will be moved to stepdown and placed on a drip.
--- NOTE | 2022-06-28 20:00 | PC.NURSE ---
pt brought to step down from 202, EKG had been done showing afib with rvr and oxygen saturations decreasing on 3LNC, but upon hooking pt up in 219 pt in sinus tach (110-120), pt did have to be placed on 100% NRB per RT for decreasing oxygen saturations, O2 sat 95% on 100% NRB, MD Carolina stated to hold cardizem push and drip for now unless pt goes back into afib with rvr and to start heparin drip for pe protocol, form sent to pharmacy to dose
[2022-06-28 21:02] LABS: POC Glucose,Bedside 151 (70-110)
--- NOTE | 2022-06-28 22:12 | PC.NURSE ---
notified MD Lelo Carolina that pt was not in afib until just now, now HR 120-140 but amio bolus has been given and amio drip is running at 1mg/min, no new orders at this time
[2022-06-29] VITALS (23 sets, daily range): BP systolic 90–132; BP diastolic 46–73; PULSE 58–142; RESP 13–30; TEMP 36.4–36.9; O2SAT 87–98
--- NOTE | 2022-06-29 00:01 | PC.NURSE ---
Addendum entered by Janette Sanders RN 06/29/22 00:24: (pt pulled out IV from Left AC...) Original Note: pt pulled out IV from right AC, pt continually pulling NRB off face, applied 6LNC as pt said mask was smothering her, sats on 6LNC 88-92%, attempting to get another IV as heparin and amiodarone are not compatible
--- NOTE | 2022-06-29 00:31 | PC.NURSE ---
colten BREWER obtained new 20Gauge IV in left forearm
--- NOTE | 2022-06-29 03:48 | PC.NURSE ---
amio drip at 1mg/min has been going for 6 hours, decreasing amio drip to 0.5mg/min per protocol for 18 hours
--- NOTE | 2022-06-29 04:00 | PC.NURSE ---
pt stated felt like needed oxygen increased and felt like couldn't catch her breath, informed pt already on 6LNC so would need to put NRB back on if needed more oxygen, pt stated okay, placed 100% NRB back on pt, oxygen saturations 95-100% on 100% NRB
--- NOTE | 2022-06-29 04:13 | PC.NURSE ---
pt's HR 85 and back to NSR on tele monitor
[2022-06-29 06:19] LABS: POC Glucose,Bedside 214 (70-110)
[2022-06-29 07:24] LABS: Basophils % 0.5 % (0.1-2.0); Eosinophils % 0.1 % (0.1-12.0); Hematocrit 32.6 % (37.0-47.0); Lymphocytes # 0.4 K/mm3 (0.7-4.5); Lymphocytes % 7.9 % (10-50); Mean Corpuscular HGB Conc 30.6 g/dL (31.8-35.4); Mean Corpuscular Volume 94.8 fl (81-99); Mean Platelet Volume 9.2 fl (7.4-10.4); Monocytes # 0.1 K/mm3 (0.1-1.0); Neutrophils # 4.7 K/mm3 (1.8-7.8); Neutrophils % 89.5 % (37.0-80.0); Platelet Count 222 K/mm3 (142-424); Red Blood Count 3.44 M/mm3 (4.20-5.40); Red Cell Distribution Width 14.7 % (11.5-17.5); White Blood Count 5.3 K/mm3 (4.8-10.8)
[2022-06-29 07:29] LABS: Alanine Aminotransferase 16 U/L (12-78); Albumin Level 2.8 g/dl (3.5-5.0); Albumin/Globulin Ratio 0.9 (1.1-1.8); Alkaline Phosphatase 94 U/L (38-126); Anion Gap 21.3 mEq/L (5-15); Aspartate Amino Transferase 34 U/L (14-36); Bilirubin,Total 0.6 mg/dl (0.2-1.3); Blood Urea Nitrogen 69 mg/dl (7-17); Calcium 8.4 mg/dl (8.4-10.2); Carbon Dioxide 19 mmol/L (22.0-30.0); Chloride 98 mmol/L (98-107); Creatinine Clearance Estimated 22 mL/min (50-200); Estimated Glomerular Filt Rate 19 ml/min (>60); GFR (African American) 23 ML/MIN (>60); Globulin 3.1 g/dL (1.3-3.2); Glucose 200 mg/dl (74-100); Phosphorous 5.2 mg/dl (2.5-4.5); Potassium 4.3 mmoL/L (3.5-5.1); Sodium 134 mmol/L (136-145); Total Protein,Serum 5.9 g/dl (6.3-8.2)
[2022-06-29 07:30] LABS: Magnesium 1.9 mg/dl (1.6-2.3)
[2022-06-29 07:32] LABS: MANUAL DIFFERENTIAL MANUAL DIFFERENTIAL (MANUAL DIFF)
[2022-06-29 08:07] LABS: Lymphocytes % 8 % (10-50); Monocytes % 3 % (2-9); Neutrophils % 86 % (42-76); Total Cells Counted 100
[2022-06-29 08:08] LABS: Anisocytosis 1+; Ovalocytes 1+; Platelet Estimate Normal; Poikilocytosis 1+
--- NOTE | 2022-06-29 08:15 | HMH.PHAHEP ---
[facility] Pharmacy Heparin Dosing Demographic Data Admission date:: 06/29/22 Date: 06/29/22 Time: 08:15 Allergies Allergy/AdvReac Type Severity Reaction Status Date / Time No Known Allergies Allergy Verified 05/01/21 11:42 Height: 1.55 m Weight: 64.2 kg Indication Medication therapy:: Heparin Current Indications:: POSSIBLE PE Current Active Problems (Updated 06/29/22 @ 15:29 by Lara Cavazos MD) Acute respiratory failure with hypoxia (Acute) Healthcare-associated pneumonia (Acute) Influenza A (Acute) PAD (peripheral artery disease) (Chronic) Diabetes mellitus (Chronic) Hypertension (Chronic) Influenza A (Acute) Influenza A (Acute) Acute respiratory failure with hypoxia (Acute) NAHUM (acute kidney injury) (Acute) Hypoxia (Acute) Atrial fibrillation (Chronic) S/P coronary artery bypass graft x 3 (Chronic) CAD (coronary artery disease) (Chronic) CVA?: No Bleeding problem?: No Kidney disease?: Yes [place]?: No Desired PTT range:: 50-75 seconds Labs Anticoagulation Lab Results:: 06/29/22 05:58 Hgb 10.0 L Hct 32.6 L Plt Count 222 D Monitoring Dose Monitor 1: Date: 06/28/22 Time: 21:00 PTT Result:: NO BASELINE WAS ORDERED Infusion Rate:: HEPARIN DRIP WAS STARTED AT 22 ML/HR (1100 UNITS/HR) AND A BOLUS OF HEPARIN 5000 UNITS WAS GIVEN. Dose Monitor 2: Date: 06/29/22 Time: 07:25 PTT Result:: PTT 92.0 Infusion Rate:: DRIP RATE WAS REDUCED TO 20 ML/HR (1000 UNITS/HR) Dose Monitor 3: Date: 06/29/22 Time: 12:30 PTT Result:: PTT 81.7 Infusion Rate:: DRIP RATE REDUCED TO 18 ML/HR (900 UNITS/HR) Core Measures Is INR > or = 2 at discharge?: No Most Recent Labs:: Laboratory Results - last 24 hr 06/28/22 07:25: Sodium 135 L, Potassium 4.0, Chloride 99, Carbon Dioxide 20 L, Anion Gap 20.0 H, BUN 62 H, Creatinine 2.30 H, Estimated Creat Clear 23, Estimated GFR 21 L, Est GFR ( Amer) 25 L, Glucose 119 H, Calcium 8.2 L, Phosphorus 3.7, Magnesium 1.7, Total Bilirubin 0.3, AST 38 H, ALT 18, Alkaline Phosphatase 100, Total Protein 5.8 L, Albumin 2.7 L, Globulin 3.1, Albumin/Globulin Ratio 0.9 L 06/28/22 07:25: Procalcitonin 2.84 H 06/28/22 12:01: POC Glucose 133 H 06/28/22 16:06: POC Glucose 139 H 06/28/22 16:50: Stool Occult Blood Positive A 06/28/22 16:50: Urine Color Yellow, Urine Appearance Cloudy, Urine pH 7.0, Ur Specific [place] 1.020, Urine Protein 3+, Urine Glucose (UA) Negative, Urine Ketones Negative, Urine Blood 2+, Urine Nitrate Negative, Urine Bilirubin Negative, Urine Urobilinogen 0.2, Ur Leukocyte Esterase 2+ A, Urine RBC 3-5, Urine WBC 10-20, Ur Squamous Epith Cells 3-5, Urine Bacteria 4+ 06/28/22 20:53: POC Glucose 151 H 06/29/22 05:58: WBC 5.3 D, RBC 3.44 L, Hgb 10.0 L, Hct 32.6 L, MCV 94.8, MCH 29.0, MCHC 30.6 L, RDW 14.7, Plt Count 222 D, MPV 9.2, Neut % (Auto) 89.5 H, Lymph % (Auto) 7.9 L, [place] % (Auto) 2.0, Eos % (Auto) 0.1, Baso % (Auto) 0.5, Neut # (Auto) 4.7, Lymph # (Auto) 0.4 L, [place] # (Auto) 0.1, Eos # (Auto) 0.0, Baso # (Auto) 0.0, Total Counted 100, Neutrophils % (Manual) 86 H, Band Neutrophils % 3.0, Lymphocytes % (Manual) 8 L, Monocytes % (Manual) 3, Platelet Estimate Normal, Poikilocytosis 1+, Anisocytosis 1+, Ovalocytes 1+ 06/29/22 05:58: Sodium 134 L, Potassium 4.3, Chloride 98, Carbon Dioxide 19 L, Anion Gap 21.3 H, BUN 69 H, Creatinine 2.50 H, Estimated Creat Clear 22, Estimated GFR 19 L*, Est GFR ( Amer) 23 L, Glucose 200 H D, Calcium 8.4, Phosphorus 5.2 H D, Total Bilirubin 0.6, AST 34, ALT 16, Alkaline Phosphatase 94, Total Protein 5.9 L, Albumin 2.8 L, Globulin 3.1, Albumin/Globulin Ratio 0.9 L 06/29/22 05:58: Magnesium 1.9 D 06/29/22 06:11: POC Glucose 214 H If INR was < than 2.0 why was therapy stopped?: SWITCHED TO LOVENOX Were Heparin and Warfarin started on the same day?: No If not, why?: SWITCHED TO LOVENOX
--- NOTE | 2022-06-29 08:15 | EXP.ACUTE.PN ---
Subjective *Date: 06/29/22 *Time: 19:27 Interval history: Patient has had worsening shortness of breath. Appears dyspneic on exam today. Remains afebrile. Heart rate remains uncontrolled, currently on heparin, amiodarone, diltiazem drips. Awakens on exam but quickly falls asleep. Denies any chest pain or nausea Medical Exam Vital signs and Labs for Last 24 Hours: Vital Signs Temp Pulse Pulse Resp BP Pulse Ox FiO2 06/29/22 06:15 80 06/29/22 06:15 81 06/29/22 06:15 98 06/29/22 06:00 81 25 H 114/56 L 97 100 06/29/22 04:00 91 H 06/29/22 04:00 92 H 25 H 132/73 96 100 06/29/22 04:00 98.4 F 06/29/22 02:00 132 H 29 H 110/62 89 L 06/29/22 00:00 133 H 06/28/22 20:00 115 H 06/29/22 00:00 92 L 06/29/22 00:00 136 H 27 H 123/62 90 L 06/28/22 20:00 92 L 100 06/28/22 22:00 111 H 38 H 149/83 H 92 L 100 06/28/22 20:00 114 H 26 H 141/67 H 95 100 06/28/22 20:00 91 L 06/28/22 20:00 98.7 F 06/28/22 18:36 115 H 06/28/22 18:36 116 H 06/28/22 16:00 98.9 F 100 H 20 136/63 92 L 06/28/22 16:00 100 H 06/28/22 12:00 97.9 F 94 H 20 127/54 L 90 L 06/28/22 11:00 72 18 06/28/22 12:41 73 06/28/22 12:41 72 Intake and Output 06/28/22 06/29/22 06/29/22 23:59 07:59 15:59 Intake Total 120 / 600 Output Total 0 / 300 0 / 0 Balance 120 / 300 0 / 0 Intake: Intake, Oral Amount 120 / 600 Output: Output, Urine Amount 0 / 300 0 / 0 Other: Number of Voids 1 Number of Unmeasured Voids 1 1 Number of Bowel Movements 1 1 Laboratory Results - last 24 hr 06/28/22 07:25: Sodium 135 L, Potassium 4.0, Chloride 99, Carbon Dioxide 20 L, Anion Gap 20.0 H, BUN 62 H, Creatinine 2.30 H, Estimated Creat Clear 23, Estimated GFR 21 L, Est GFR ( Amer) 25 L, Glucose 119 H, Calcium 8.2 L, Phosphorus 3.7, Magnesium 1.7, Total Bilirubin 0.3, AST 38 H, ALT 18, Alkaline Phosphatase 100, Total Protein 5.8 L, Albumin 2.7 L, Globulin 3.1, Albumin/Globulin Ratio 0.9 L 06/28/22 07:25: Procalcitonin 2.84 H 06/28/22 12:01: POC Glucose 133 H 06/28/22 16:06: POC Glucose 139 H 06/28/22 16:50: Stool Occult Blood Positive A 06/28/22 16:50: Urine Color Yellow, Urine Appearance Cloudy, Urine pH 7.0, Ur Specific [place] 1.020, Urine Protein 3+, Urine Glucose (UA) Negative, Urine Ketones Negative, Urine Blood 2+, Urine Nitrate Negative, Urine Bilirubin Negative, Urine Urobilinogen 0.2, Ur Leukocyte Esterase 2+ A, Urine RBC 3-5, Urine WBC 10-20, Ur Squamous Epith Cells 3-5, Urine Bacteria 4+ 06/28/22 20:53: POC Glucose 151 H 06/29/22 05:58: WBC 5.3 D, RBC 3.44 L, Hgb 10.0 L, Hct 32.6 L, MCV 94.8, MCH 29.0, MCHC 30.6 L, RDW 14.7, Plt Count 222 D, MPV 9.2, Neut % (Auto) 89.5 H, Lymph % (Auto) 7.9 L, [place] % (Auto) 2.0, Eos % (Auto) 0.1, Baso % (Auto) 0.5, Neut # (Auto) 4.7, Lymph # (Auto) 0.4 L, [place] # (Auto) 0.1, Eos # (Auto) 0.0, Baso # (Auto) 0.0, Total Counted 100, Neutrophils % (Manual) 86 H, Band Neutrophils % 3.0, Lymphocytes % (Manual) 8 L, Monocytes % (Manual) 3, Platelet Estimate Normal, Poikilocytosis 1+, Anisocytosis 1+, Ovalocytes 1+ 06/29/22 05:58: Sodium 134 L, Potassium 4.3, Chloride 98, Carbon Dioxide 19 L, Anion Gap 21.3 H, BUN 69 H, Creatinine 2.50 H, Estimated Creat Clear 22, Estimated GFR 19 L*, Est GFR ( Amer) 23 L, Glucose 200 H D, Calcium 8.4, Phosphorus 5.2 H D, Total Bilirubin 0.6, AST 34, ALT 16, Alkaline Phosphatase 94, Total Protein 5.9 L, Albumin 2.8 L, Globulin 3.1, Albumin/Globulin Ratio 0.9 L 06/29/22 05:58: Magnesium 1.9 D 06/29/22 06:11: POC Glucose 214 H I & O for Labs for Last 24 Hours: Intake & Output 06/26/22 06/27/22 06/28/22 06/29/22 23:59 23:59 23:59 23:59 Intake Total 966 / 966 600 / 600 Output Total 0 / 0 300 / 300 0 / 0 Balance 966 / 966 300 / 300 0 / 0 Weight 62.737 kg 63.163 kg 64.212 kg Constitutional: Present
[2022-06-29 08:43] LABS: Total Iron Binding Capacity 149 ug/dL (265-497)
[2022-06-29 08:45] LABS: Iron < 10 ug/dL (37-170)
[2022-06-29 09:10] LABS: Ferritin 206 ng/ml (11.1-264)
--- NOTE | 2022-06-29 09:17 | EXP.CARD.CON ---
History of Present Illness History of Present Illness Consult date: 06/29/22 Requesting physician: Benito Carolina Consult reason: atrial fibrillation Chief complaint: A. fib with RVR, Flu Additional Medical History:: 1. Type 2 diabetes mellitus, insulin requiring. 2. History of tobacco use 3. Hypertension A. Echo, 06/28/2022, 1.? Mild biatrial enlargement, normal left ventricular size, mild concentric left ventricular hypertrophy, estimated ejection fraction 55% with no regional wall motion abnormality, grade 2 diastolic dysfunction seen with tissue Doppler evidence of raise left atrial pressure. 2.? Mildly enlarged right ventricle with normal contractility. 3.? Mild mitral and tricuspid regurgitation. 4.? No significant pericardial effusion. 5.? Inferior vena cava is poorly visualized 4. PAD A. 2 bare-metal stents placed to right femoral artery, 11/22/2017 B. 2 bare-metal stents placed to right popliteal and right superficial femoral artery, 11/2017 5. Coronary artery disease, three-vessel by [facility], 01/09/2018 A. History of three-vessel bypass, Dr. Briseno, [facility], 07/2018 (surgery delayed from 12/2017 due to PVD/Gangrene/surgery of foot complicated by acute renal insufficiency) 6. Renal artery stenosis A. Bare-metal stent placed to right renal artery, 10/2017 B. Bilateral renal atrophy, Right > left 7. Iron deficiency anemia A. EGD and colonoscopy, 08/2019, [facility], Dr. Bojorquez, possible Whitt's esophagus, Mild nonerosive focal duodenitis, Significant profound sigmoid diverticulosis, Small colonic polyps B. Heme positive stool with iron less than 10, TIBC 149, iron saturation 6.7 and hemoglobin 10 during hospitalization 06/2022 8. Influenza type a, hospitalized 06/2022 with hypoxemia 9. Paroxysmal atrial fibrillation, 06/2022, started on amiodarone and anticoagulation 10. Chronic kidney disease, Stage IV with GFR 19 and creatinine 2.5 on 06/29/2022 History of present illness: This is a 71-year-old female with past medical history of CAD, atrial fibrillation, diabetes who presents emergency department today with 5 days of generalized malaise fatigue, cough, congestion, generalized body aches.? She reports the generalized symptoms but denies any overt shortness of breath.? She does report being at a large Thanksgiving get together but does not know if anybody had respiratory illnesses.? She is COVID and flu vaccinated.? Emergency department work-up significant for flu a positive.? She also has a mild NAHUM with creatinine of 2.3 with baseline of 1.8.? She is hypoxic into the mid 80s requiring 2 L nasal cannula and is oxygenating well.? Chest x-ray without infiltrates.? Due to the above-mentioned complaint should be admitted to the hospital service for further evaluation and management. The above per Dr. Fuentes Carolina Patient seen today for onset of atrial fibrillation with rapid ventricular response overnight. She has been started on IV amiodarone as well as IV heparin. Heart rate is fluctuating between 90 to 120 bpm with blood pressure around 110 mmHg systolic. Patient had a prior history of transient atrial fibrillation surrounding her bypass surgery and 2018. Patient currently on Ventimask with oxygen saturation in the 90s. She denies chest pain but does have a congested cough and appears weak and tired. PFSH PFS Medical History (Updated 06/26/22 @ 23:22 by Brigette Willett RN) Amputation of toe of right foot Atrial fibrillation CAD (coronary artery disease) Diabetes mellitus, type 2 Hip fracture, right Right scapula fracture Surgical History (Updated 06/26/22 @ 23:22 by Brigette Willett RN) History of right hip replacement S/P coronary artery bypass graft x 3 Family History (Updated 06/26/22 @ 23:20 by Brigette Willett RN) Right scapula fracture Hip fracture, right Social History (Updated 06/26/22 @ 23:24 by Brigette Willett RN) Smoking Status: Current every
--- NOTE | 2022-06-29 09:40 | NM_ITS ---
FINAL REPORT CLINICAL HISTORY: Hypoxemia, A. fib with RVR 1:00pm 32.0 mci tc dtpa 1:40pm 7.33 mci tc maa FINDINGS: NUCLEAR MEDICINE VENTILATION AND PERFUSION IMAGING TECHNIQUE: V/Q scan is performed utilizing 32.0 technetium 99 M DTPA aerosol and IV administration of 7.33 technetium 99 M MAA. Images were obtained in AP, PA, lateral, and oblique projections. FINDINGS No mismatch perfusion defects. Marked central deposition of tracer on ventilation images suggesting small airways disease which may be seen with emphysema or asthma. IMPRESSION: Low probability for pulmonary embolus. Abnormal ventilation images suggesting small airways disease. Reviewed, Interpreted and Dictated by Kathy Calloway MD Transcribed by Akin Lei Authenticated and [facility]
--- NOTE | 2022-06-29 10:20 | EXP.PULM.CON ---
History of Present Illness History of present illness: Ms. Mauro is a 71-year-old female being managed in the hospital for hypoxic respiratory failure influenza pneumonia with A. fib RVR noted appropriately worsening respiratory's and increasing oxygen requirements and pulmonary was called for further evaluation management today. [facility] Medical History (Updated 06/29/22 @ 15:29 by Lara Cavazos MD) Acute respiratory failure with hypoxia Amputation of toe of right foot Atrial fibrillation CAD (coronary artery disease) Diabetes mellitus, type 2 Healthcare-associated pneumonia Hip fracture, right Influenza A Right scapula fracture Surgical History (Updated 06/26/22 @ 23:22 by Brigette Willett RN) History of right hip replacement S/P coronary artery bypass graft x 3 Family History (Updated 06/26/22 @ 23:20 by Brigette Willett RN) Other Hip fracture, right Right scapula fracture Social History (Updated 06/26/22 @ 23:24 by Brigette Willett RN) Smoking Status: Current every day smoker tobacco type: cigarettes packs per day: 1 pack-years: 40 smoking status start date: 40 years ago quit status: not considering quitting second hand exposure: Yes Tobacco counseling given: patient declined alcohol intake: never substance use type: denies use current occupational status: unemployed and retired Travel in the last 8 weeks: Inside the [place] household members: spouse housing: house lives independently: No marital status: current occupational exposures/hazards: No caffeine: Yes Review of Systems Review of Systems Review of systems (narrative): Limited given patient's lethargic. *Cardiovascular Cardiovascular: Reports dyspnea and Reports dyspnea on exertion *Respiratory Respiratory: Reports dyspnea, Reports dyspnea on exertion and Reports excessive phlegm production *Musculoskeletal Musculoskeletal: Reports muscle weakness, Reports myalgias and Denies numbness *Neurologic Neurologic: Reports system reviewed and no additional complaints, except as documented and Denies numbness Pulmonology Exam Inpatient Vital signs and Labs for Last 24 Hours: Temp Pulse Resp BP Pulse Ox FiO2 97.5 F L 100 H 25 H 114/56 L 98 100 06/29/22 08:00 06/29/22 08:00 06/29/22 06:00 06/29/22 06:00 06/29/22 06:15 06/29/22 06:00 Laboratory Results - last 24 hr 06/28/22 07:25: Procalcitonin 2.84 H 06/28/22 12:01: POC Glucose 133 H 06/28/22 16:06: POC Glucose 139 H 06/28/22 16:50: Stool Occult Blood Positive A 06/28/22 16:50: Urine Color Yellow, Urine Appearance Cloudy, Urine pH 7.0, Ur Specific [place] 1.020, Urine Protein 3+, Urine Glucose (UA) Negative, Urine Ketones Negative, Urine Blood 2+, Urine Nitrate Negative, Urine Bilirubin Negative, Urine Urobilinogen 0.2, Ur Leukocyte Esterase 2+ A, Urine RBC 3-5, Urine WBC 10-20, Ur Squamous Epith Cells 3-5, Urine Bacteria 4+ 06/28/22 20:53: POC Glucose 151 H 06/29/22 05:58: WBC 5.3 D, RBC 3.44 L, Hgb 10.0 L, Hct 32.6 L, MCV 94.8, MCH 29.0, MCHC 30.6 L, RDW 14.7, Plt Count 222 D, MPV 9.2, Neut % (Auto) 89.5 H, Lymph % (Auto) 7.9 L, [place] % (Auto) 2.0, Eos % (Auto) 0.1, Baso % (Auto) 0.5, Neut # (Auto) 4.7, Lymph # (Auto) 0.4 L, [place] # (Auto) 0.1, Eos # (Auto) 0.0, Baso # (Auto) 0.0, Total Counted 100, Neutrophils % (Manual) 86 H, Band Neutrophils % 3.0, Lymphocytes % (Manual) 8 L, Monocytes % (Manual) 3, Platelet Estimate Normal, Poikilocytosis 1+, Anisocytosis 1+, Ovalocytes 1+ 06/29/22 05:58: Sodium 134 L, Potassium 4.3, Chloride 98, Carbon Dioxide 19 L, Anion Gap 21.3 H, BUN 69 H, Creatinine 2.50 H, Estimated Creat Clear 22, Estimated GFR 19 L*, Est GFR ( Amer) 23 L, Glucose 200 H D, Calcium 8.4, Phosphorus 5.2 H D, Total Bilirubin 0.6, AST 34, ALT 16, Alkaline Phosphatase 94, Total Protein 5.9 L, Albumin 2.8 L, Globulin 3.1, Albumin/Globulin Ratio 0.9 L 06/29/22 05:58: Iron < 10 L, TIBC 149 L, Iron Saturation 6.18453 L, Ferrit
--- NOTE | 2022-06-29 10:22 | XR_ITS ---
FINAL REPORT CLINICAL HISTORY: Hypoxia COMPARISON: September 2021 FINDINGS: Heart size normal. Postoperative change from CABG otherwise unremarkable mediastinum. New bibasilar airspace opacity compatible with pneumonia. Small bilateral pleural effusions. IMPRESSION: Findings most suggestive of CHF. Reviewed, Interpreted and Dictated by Kathy Calloway MD Transcribed by Akin Lei Authenticated and [facility]
[2022-06-29 12:28] LABS: POC Glucose,Bedside 134 (70-110)
[2022-06-29 12:56] LABS: PTT Heparin (inpatient only) 81.7 Seconds (23.6-34.0)
[2022-06-29 15:54] LABS: ABG Base Excess -8.8 mmol/L (-2.4-2.3); ABG HCO3 18.7 mmhg (22.0-26.0); ABG Oxygen Saturation 87 % (90-100); ABG PCO2 45.2 mmhg (35.0-45.0); ABG PH 7.23 mmol/L (7.35-7.45); ABG PO2 57.9 mmhg (80-100); ABG TCO2 20.1 mmhg (23-27); Oxygen 40 %
[2022-06-29 15:55] LABS: Source Left Brachial
[2022-06-29 17:33] LABS: POC Glucose,Bedside 148 (70-110)
--- NOTE | 2022-06-29 17:47 | PC.NURSE ---
Pt has been restless and minimally compliant this shift. pt is currently on bipap and is resting and tolerating it well. when pt was wearing venti mask, she continually pulled the mask off. pt was off of the unit for VQ scan this afternoon. lungs are diminished with rhonchi throughout. bowel sounds are active. pt has vomited 3 times this shift. each time a small amount of brown liquid was noted. pt received zofran at 1230 and has not had any further nausea that she has reported. pt is alert to self and location but does not appear to comprehend the situation of what/how/why she is being treated.
[2022-06-29 20:56] LABS: POC Glucose,Bedside 156 (70-110)
--- NOTE | 2022-06-29 22:30 | PC.NURSE ---
pt pulled bipap mask off and threw up; placed bipap back on after oral care, SRNA and RN gave pt bath and changed sheets and gown
--- NOTE | 2022-06-29 23:09 | PC.NURSE ---
HR 72, decreased dilt drip to 10mg/hr 2130-HR 63, decreased dilt drip to 5mg/hr 2300-notified PAMELLA Duncan that pt's HR is staying 57-59, instructed to turn dilt drip off at this time
--- NOTE | 2022-06-29 23:09 | PC.NURSE ---
2100-HR 72, decreased dilt drip to 10mg/hr 2130-HR 63, decreased dilt drip to 5mg/hr 2300-HR 57-59, notified PAMELLA Duncan, instructed to turn dilt drip off at this time, dilt drip stopped as HR consistently less than 60
--- NOTE | 2022-06-29 23:59 | PC.NURSE ---
pt agitated and continually getting mittens off, pt will not keep bipap or venti mask on, pt very aggressive and combative to staff when attempt to place mask of any kind back on, pt agreed to nasal cannula but attempts to take it off at times too, PAMELLA Duncan notified and came to bedside and spoke with pt, pt nodded and asked RN to help her turn over on left side, pt's oxygen saturations 88-96% on 6LNC
[2022-06-30] VITALS (22 sets, daily range): BP systolic 92–146; BP diastolic 38–55; PULSE 53–106; RESP 18–34; TEMP 35.3–36.7; O2SAT 89–100; BMI 28.8
[2022-06-30 06:25] LABS: Alanine Aminotransferase 14 U/L (12-78); Albumin Level 2.7 g/dl (3.5-5.0); Albumin/Globulin Ratio 0.9 (1.1-1.8); Alkaline Phosphatase 88 U/L (38-126); Anion Gap 13.5 mEq/L (5-15); Aspartate Amino Transferase 31 U/L (14-36); Bilirubin,Total 0.6 mg/dl (0.2-1.3); Carbon Dioxide 20 mmol/L (22.0-30.0); Chloride 106 mmol/L (98-107); Creatinine Clearance Estimated 17 mL/min (50-200); Estimated Glomerular Filt Rate 14 ml/min (>60); GFR (African American) 17 ML/MIN (>60); Globulin 3.1 g/dL (1.3-3.2); Glucose 128 mg/dl (74-100); Phosphorous 6.3 mg/dl (2.5-4.5); Potassium 4.5 mmoL/L (3.5-5.1); Sodium 135 mmol/L (136-145); Total Protein,Serum 5.8 g/dl (6.3-8.2)
[2022-06-30 06:30] LABS: Blood Urea Nitrogen 83 mg/dl (7-17)
[2022-06-30 06:31] LABS: C-Reactive Protein 283.3 mg/L (0-4)
[2022-06-30 06:54] LABS: Basophils % 0.3 % (0.1-2.0); Eosinophils % 0.3 % (0.1-12.0); Hematocrit 30.1 % (37.0-47.0); Lymphocytes # 0.3 K/mm3 (0.7-4.5); Lymphocytes % 6.3 % (10-50); Mean Corpuscular HGB Conc 29.5 g/dL (31.8-35.4); Mean Corpuscular Hemoglobin 28.5 pg (27.0-31.2); Mean Corpuscular Volume 96.5 fl (81-99); Mean Platelet Volume 9.6 fl (7.4-10.4); Monocytes # 0.1 K/mm3 (0.1-1.0); Monocytes % 1.7 % (1.7-9.3); Neutrophils # 4.6 K/mm3 (1.8-7.8); Neutrophils % 91.5 % (37.0-80.0); Platelet Count 215 K/mm3 (142-424); Red Blood Count 3.12 M/mm3 (4.20-5.40); Red Cell Distribution Width 15.1 % (11.5-17.5); White Blood Count 5.1 K/mm3 (4.8-10.8)
--- NOTE | 2022-06-30 07:02 | PC.NURSE ---
notified PAMELLA Duncan of pt's critical BUN of 83, no new orders at this time
[2022-06-30 07:19] LABS: Hemoglobin 8.9 g/dL (12.2-16.2); MANUAL DIFFERENTIAL MANUAL DIFFERENTIAL (MANUAL DIFF)
[2022-06-30 07:44] LABS: Lymphocytes % 9 % (10-50); Monocytes % 4 % (2-9); Neutrophils % 87 % (42-76); Platelet Estimate Normal; RBC Morphology Normal; Total Cells Counted 100
--- NOTE | 2022-06-30 09:22 | PC.NURSE ---
notified Markell Syed face to face that pt was back in afib. order received for pt to be started on diltiazem @ 10ml.hr with a 10 mg bolus. [id number]
--- NOTE | 2022-06-30 09:56 | EXP.PULM.PN ---
Subjective *Date: 06/30/22 *Time: 11:43 Interval history: No acute respiratory vents overnight. Pulmonology Exam Inpatient Vital signs and Labs for Last 24 Hours: Temp Pulse Resp BP Pulse Ox FiO2 97.9 F 78 22 131/52 L 100 40 06/30/22 08:00 06/30/22 08:00 06/30/22 08:00 06/30/22 08:00 06/30/22 08:00 06/29/22 22:00 Laboratory Results - last 24 hr 06/29/22 12:04: POC Glucose 134 H 06/29/22 12:22: APTT 81.7 H* 06/29/22 15:24: Specimen Source Left brachial, O2 % 40, ABG pH 7.23 L*, ABG pCO2 45.2 H, ABG pO2 57.9 L, ABG HCO3 18.7 L, ABG Total CO2 20.1 L, ABG O2 Saturation 87 L*, ABG Base Excess -8.8 L, Ziggy Test N/a 06/29/22 17:23: POC Glucose 148 H 06/29/22 20:30: POC Glucose 156 H 06/30/22 05:39: WBC 5.1, RBC 3.12 L, Hgb 8.9 L D, Hct 30.1 L, MCV 96.5, MCH 28.5, MCHC 29.5 L, RDW 15.1, Plt Count 215, MPV 9.6, Neut % (Auto) 91.5 H, Lymph % (Auto) 6.3 L, [place] % (Auto) 1.7, Eos % (Auto) 0.3, Baso % (Auto) 0.3, Neut # (Auto) 4.6, Lymph # (Auto) 0.3 L, [place] # (Auto) 0.1, Eos # (Auto) 0.0, Baso # (Auto) 0.0, Total Counted 100, Neutrophils % (Manual) 87 H, Lymphocytes % (Manual) 9 L, Monocytes % (Manual) 4, Platelet Estimate Normal, RBC Morphology Normal 06/30/22 05:39: Sodium 135 L, Potassium 4.5, Chloride 106, Carbon Dioxide 20 L, Anion Gap 13.5, BUN 83 H, Creatinine 3.20 H D, Estimated Creat Clear 17, Estimated GFR 14 L*, Est GFR ( Amer) 17 L* D, Glucose 128 H D, Calcium 8.0 L, Phosphorus 6.3 H, Total Bilirubin 0.6, AST 31, ALT 14, Alkaline Phosphatase 88, C-Reactive Protein 283.3 H, Total Protein 5.8 L, Albumin 2.7 L, Globulin 3.1, Albumin/Globulin Ratio 0.9 L I & O for Labs for Last 24 Hours: Intake & Output 06/27/22 06/28/22 06/29/22 06/30/22 23:59 23:59 23:59 23:59 Intake Total 966 / 966 600 / 600 1480 / 1480 Output Total 0 / 0 300 / 300 400 / 400 400 / 400 Balance 966 / 966 300 / 300 -400 / -400 1080 / 1080 Weight 139 lb 4.009 oz 141 lb 9 oz 141 lb 8.588 oz Microbiology Reports for the Last 24 Hours: Microbiology 06/28/22 16:50 Urine,Clean Catch Urine Culture - Final Escherichia coli Constitutional: Present severe distress Head: Present normocephalic and atraumatic ENT: Present normal exam and mucous membranes moist Neck: Present normal inspection and trachea midline Respiratory: Present respiratory distress, wheezes, diminished air movement and able to speak in complete sentences Cardiac: Present S1/S2, Tachycardia and radial pulses present GI: Present soft and distention; Absent tenderness or guarding Rectal (female): Present deferred (female): Present deferred Skin: Present intact; Absent cyanosis or jaundice Neuro: Present alert and awake; Absent oriented x 3 Extremities: Present normal inspection; Absent clubbing or cyanosis Psychiatric: Present normal affect and cooperative Assessment and Plan *Assessment and plan (1) Influenza A: Status: Acute Category: Medical Code(s): J10.1 - Influenza due to other identified influenza virus with other respiratory manifestations (2) Healthcare-associated pneumonia: Status: Acute Category: Medical Code(s): J18.9 - Pneumonia, unspecified organism (3) Acute respiratory failure with hypoxia: Status: Acute Category: Medical Code(s): J96.01 - Acute respiratory failure with hypoxia Plan Ms. Mauro is a 71-year-old female history CAD, A. fib, diabetes presented on 06/26/2020 with generalized fatigue chest congestion and body aches. Patient was also found to be hypoxic needing oxygen supplementation. Tested positive for flu a and initiated on Tamiflu. No antibiotics in the setting of normal chest x-ray. Chest x-ray admission reviewed, no dense consolidation. Concern for right lower lobe airspace disease. Leukopenia on admission, improving today at 5.3. Neutrophil predominant. VBG did not show any evidence of hypercarbic respiratory failure. Concern for metabolic acidosis i
--- NOTE | 2022-06-30 10:40 | EXP.CARD.PN ---
Subjective Subjective Date: 06/30/22 Time: 10:40 Principal diagnosis: Flu, NAHUM, A. fib Interval history: 71-year-old white female in bed awakens to verbal but is extremely fatigued. Continues to require supplemental oxygen. Patient did convert to sinus rhythm yesterday on the IV diltiazem but after the IV diltiazem was discontinued last evening for bradycardia she did convert back to atrial fibrillation overnight. She is currently back on IV diltiazem at 10 mg/h with rate in the 90 bpm range. Patient is on prophylactic Lovenox which we will increase to therapeutic dosing. VQ scan was low probability for pulmonary embolus. Exam Data for Last 24 hours Vital signs and Labs for Last 24 Hours: Temp Pulse Resp BP Pulse Ox FiO2 97.9 F 78 22 131/52 L 100 40 06/30/22 08:00 06/30/22 08:00 06/30/22 08:00 06/30/22 08:00 06/30/22 08:00 06/29/22 22:00 Laboratory Results - last 24 hr 06/29/22 12:04: POC Glucose 134 H 06/29/22 12:22: APTT 81.7 H* 06/29/22 15:24: Specimen Source Left brachial, O2 % 40, ABG pH 7.23 L*, ABG pCO2 45.2 H, ABG pO2 57.9 L, ABG HCO3 18.7 L, ABG Total CO2 20.1 L, ABG O2 Saturation 87 L*, ABG Base Excess -8.8 L, Ziggy Test N/a 06/29/22 17:23: POC Glucose 148 H 06/29/22 20:30: POC Glucose 156 H 06/30/22 05:39: WBC 5.1, RBC 3.12 L, Hgb 8.9 L D, Hct 30.1 L, MCV 96.5, MCH 28.5, MCHC 29.5 L, RDW 15.1, Plt Count 215, MPV 9.6, Neut % (Auto) 91.5 H, Lymph % (Auto) 6.3 L, [place] % (Auto) 1.7, Eos % (Auto) 0.3, Baso % (Auto) 0.3, Neut # (Auto) 4.6, Lymph # (Auto) 0.3 L, [place] # (Auto) 0.1, Eos # (Auto) 0.0, Baso # (Auto) 0.0, Total Counted 100, Neutrophils % (Manual) 87 H, Lymphocytes % (Manual) 9 L, Monocytes % (Manual) 4, Platelet Estimate Normal, RBC Morphology Normal 06/30/22 05:39: Sodium 135 L, Potassium 4.5, Chloride 106, Carbon Dioxide 20 L, Anion Gap 13.5, BUN 83 H, Creatinine 3.20 H D, Estimated Creat Clear 17, Estimated GFR 14 L*, Est GFR ( Amer) 17 L* D, Glucose 128 H D, Calcium 8.0 L, Phosphorus 6.3 H, Total Bilirubin 0.6, AST 31, ALT 14, Alkaline Phosphatase 88, C-Reactive Protein 283.3 H, Total Protein 5.8 L, Albumin 2.7 L, Globulin 3.1, Albumin/Globulin Ratio 0.9 L I & O for Last 24 hours: Intake & Output 06/27/22 06/28/22 06/29/22 06/30/22 11:59 11:59 11:59 11:59 Intake Total 307 / 307 899 / 899 360 / 360 1480 / 1480 Output Total 0 / 0 0 / 0 300 / 300 800 / 800 Balance 307 / 307 899 / 899 60 / 60 680 / 680 Weight 139 lb 4 oz 141 lb 9 oz 141 lb 8.588 oz Microbiology Reports for the Last 24 Hours: Microbiology 06/28/22 16:50 Urine,Clean Catch Urine Culture - Final Escherichia coli *Routine Respiratory Exam Respiratory: Present decreased breath sounds, rhonchi and diminished air movement *Routine Cardiovascular Exam Cardiovascular: Present irregularly irregular *Routine Extremities Exam Extremities: Absent cyanosis or clubbing Progress Note: A&P Assessment and plan (1) Influenza A: Status: Acute (2) Healthcare-associated pneumonia: Status: Acute (3) Acute respiratory failure with hypoxia: Status: Acute (4) Atrial fibrillation: Status: Chronic (5) CAD (coronary artery disease): Status: Chronic (6) S/P coronary artery bypass graft x 3: Status: Chronic (7) Hypoxia: Status: Acute (8) NAHUM (acute kidney injury): Status: Acute (9) Hyperphosphatemia associated with renal failure: Status: Acute Assessment and Plan Assessment and Plan for All Diagnoses:: 1.? Acute respiratory failure with hypoxia secondary to influenza and possible sepsis with UTI.? Currently on supplemental oxygen, tamiflu, prednisone and IV abx with further treatment per Hospitalist and Frameman. 2.? A. Fib with RVR.? VQ scan low prob for PE.? Echo shows EF 55%, grade 2 DD, mild RV enlargement and mild LAE.? STart PO amio 400 mg BID (IV loading ended overnight). REsume IV diltiazem for rate control. 3.? CAD with history of byp
--- NOTE | 2022-06-30 11:56 | PC.NURSE ---
notified Dr Carmichael at this time face to face that pt lung sounds have worsened since the am assessment. pt now has course rhonchi throughout right lung field with fine crackles throughout the left lung field. new orders at this time are to increase maintenance ivf to ns @ 150/hr and order a chest xray. [id number]
[2022-06-30 12:18] LABS: POC Glucose,Bedside 149 (70-110)
--- NOTE | 2022-06-30 12:19 | EXP.ACUTE.PN ---
Subjective *Date: 06/30/22 *Time: 19:22 Interval history: Intolerant of BiPAP overnight. Alert and oriented on exam this morning however. at bedside. Remains afebrile. Normal sinus rhythm this morning on rounds however went back into A. fib later in the morning. Transitioned to oral amiodarone. Awakens on exam but quickly falls asleep. Denies any chest pain or nausea Medical Exam Vital signs and Labs for Last 24 Hours: Vital Signs Temp Pulse Pulse Resp BP Pulse Ox FiO2 06/30/22 11:14 93 H 06/30/22 11:14 104 H 06/30/22 11:14 94 L 06/30/22 10:00 106 H 22 107/47 L 100 06/30/22 08:00 97.9 F 06/30/22 08:00 78 22 131/52 L 100 06/30/22 07:40 72 100 06/30/22 06:00 71 22 102/47 L 100 06/30/22 06:16 71 06/30/22 06:16 75 06/30/22 06:16 94 L 06/30/22 04:00 65 06/30/22 04:46 73 06/30/22 04:46 67 06/30/22 04:46 92 L 06/30/22 04:00 63 28 H 112/53 L 98 06/30/22 02:00 66 30 H 146/49 H 94 L 06/30/22 00:00 60 06/29/22 21:00 65 06/30/22 00:00 61 34 H 112/55 L 89 L 06/30/22 00:00 98.0 F 06/29/22 22:00 59 L 22 98/51 L 94 L 40 06/29/22 23:04 58 L 06/29/22 23:04 58 L 06/29/22 22:00 40 06/29/22 20:00 97.5 F L 06/29/22 20:00 111 H 13 109/61 L 93 L 40 06/29/22 18:00 131 H 26 H 117/66 94 L 40 06/29/22 18:10 102 H 06/29/22 18:10 101 H 06/29/22 16:00 124 H 30 H 117/55 L 87 L 40 06/29/22 14:00 98.0 F 142 H 30 H 103/56 L 95 40 06/29/22 16:43 120 H 95 40 06/29/22 16:00 110 H 06/29/22 16:36 95 40 06/29/22 16:26 40 06/29/22 15:37 97.7 F Intake and Output 06/29/22 06/30/22 06/30/22 23:59 07:59 15:59 Intake Total 1480 / 2296 816 / 2296 Output Total 400 / 400 400 / 400 0 / 400 Balance -400 / -400 1080 / 1896 816 / 1896 Intake: Intake, Total IV Amount 1480 / 2296 816 / 2296 0.9 % Sodium Chloride 1,000 ml 1293 / 1293 @ 75 mls/hr IV .[id number] [facility] Rx# :[id number] Cefepime HCl 1 gm In 0.9 % 100 / 100 Sodium Chloride 50 ml @ 100 mls /hr IV Q12H [facility] Rx#:[id number] Ringers Solution,Lactated 1,000 816 / 816 ml @ 500 mls/hr IV .Q2H [facility] Rx #:[id number] dilTIAZem HCL 100 mg In 0.9 % 87 / 87 Sodium Chloride 100 ml @ 10 mls /hr IV .Q10H [facility] Rx#:[id number] Output: Output, Urine Amount 400 / 400 0 / 0 Output, Urine Amount (Catheter) 400 / 400 Alicia 400 / 400 Other: Number of Unmeasured Voids 0 0 Number of Bowel Movements 1 Weight 69.201 kg Patient Weight 06/30/22 23:59 Weight 69.201 kg Laboratory Results - last 24 hr 06/29/22 12:04: POC Glucose 134 H 06/29/22 12:22: APTT 81.7 H* 06/29/22 15:24: Specimen Source Left brachial, O2 % 40, ABG pH 7.23 L*, ABG pCO2 45.2 H, ABG pO2 57.9 L, ABG HCO3 18.7 L, ABG Total CO2 20.1 L, ABG O2 Saturation 87 L*, ABG Base Excess -8.8 L, Ziggy Test N/a 06/29/22 17:23: POC Glucose 148 H 06/29/22 20:30: POC Glucose 156 H 06/30/22 05:39: WBC 5.1, RBC 3.12 L, Hgb 8.9 L D, Hct 30.1 L, MCV 96.5, MCH 28.5, MCHC 29.5 L, RDW 15.1, Plt Count 215, MPV 9.6, Neut % (Auto) 91.5 H, Lymph % (Auto) 6.3 L, [place] % (Auto) 1.7, Eos % (Auto) 0.3, Baso % (Auto) 0.3, Neut # (Auto) 4.6, Lymph # (Auto) 0.3 L, [place] # (Auto) 0.1, Eos # (Auto) 0.0, Baso # (Auto) 0.0, Total Counted 100, Neutrophils % (Manual) 87 H, Lymphocytes % (Manual) 9 L, Monocytes % (Manual) 4, Platelet Estimate Normal, RBC Morphology Normal 06/30/22 05:39: Sodium 135 L, Potassium 4.5, Chloride 106, Carbon Dioxide 20 L, Anion Gap 13.5, BUN 83 H, Creatinine 3.20 H D, Estimated Creat Clear 17, Estimated GFR 14 L*, Est GFR ( Amer) 17 L* D, Glucose 128 H D, Calcium 8.0 L, Phosphorus 6.3 H, Total Bilirubin 0.6, AST 31, ALT 14, Alkaline Phosphatase 88, C-Reactive Protein 283.3 H,
--- NOTE | 2022-06-30 12:32 | XR_ITS ---
FINAL REPORT CLINICAL HISTORY: respiratory failure..SOB..FLU COMPARISON: 06/29/2022 FINDINGS: SINGLE-VIEW CHEST The heart size is normal. The mediastinum is normal. There is patchy airspace opacity in the left mid lung and right base consistent with resolving pneumonia. The airspace opacity in the right base has improved. Airspace opacity in the left mid lung is worsened. There is no pneumothorax. IMPRESSION: Findings consistent with resolving pneumonia. Reviewed, Interpreted and Dictated by Timo Britt MD Transcribed by Gem Cazares Authenticated and [facility]
[2022-06-30 12:55] LABS: Transferrin 103 mg/dL (192-364)
--- NOTE | 2022-06-30 15:19 | PC.NURSE ---
1450 notified carmen lopez face to face that pt is now in aflutter with a rate in the 60-70's. drip decreased to 5ml/hr at this time.
--- NOTE | 2022-06-30 15:26 | PC.NURSE ---
patient is alert and oriented x 4, but she is resistant to care. when asked to perform tasks, pt refuses. she is unwilling to allow oral care(she refuses to open her mouth). pt becomes anxious due to soa and is able to be calmed but not easily. pt is unwilling/unable to follow directions when instructing incentive spirometer. pt is turned every 2 hours. stat lock reapplied to pt macdonald catheter. she has had minimal output thus far this shift. lung sounds contain rhonchi throughout with crackles in left lung field. bowel sounds are hypo active. pt has had a small bm this shift. staff unable to complete renal us r/t amount of stool in colon as well as the rate and type of respirations.
--- NOTE | 2022-06-30 16:21 | PC.NURSE ---
[address] Carmichael, notified him that pt was c/o nausea and was gagging. Dr Carmichael to order zofran. biomedical engineering director at [phone]
[2022-06-30 17:13] LABS: POC Glucose,Bedside 126 (70-110)
[2022-06-30 17:13] LABS: POC Glucose,Bedside 122 (70-110)
--- NOTE | 2022-06-30 17:16 | PC.NURSE ---
patient continually removes oxygen tubing and monitoring devices. when attempting to redirect pt, she asks for staff to just help me when asking how we can help her she asks to just let me breath for a while because she can't breath pt continually needs to be reminded to wear o2, if she wears o2 this will help her breath better. pt is directed to breath in through her nose and out through her mouth, but she refuses stating that she can't. [address] Carmichael face to face that the pt has had minimal urine output this shift. states that if pt does not have at lease 200ml urine out from [phone] to notify construction skills teacher hospitalist for potential lasix trial
[2022-06-30 17:53] LABS: Chloride 107 mmol/L (98-107); Potassium 4.5 mmoL/L (3.5-5.1); Sodium 135 mmol/L (136-145)
[2022-06-30 17:56] LABS: Creatinine Clearance Estimated 18 mL/min (50-200); Estimated Glomerular Filt Rate 14 ml/min (>60); GFR (African American) 17 ML/MIN (>60)
[2022-06-30 17:57] LABS: Anion Gap 14.5 mEq/L (5-15); Calcium 7.5 mg/dl (8.4-10.2); Carbon Dioxide 18 mmol/L (22.0-30.0); Glucose 109 mg/dl (74-100)
[2022-06-30 18:03] LABS: Blood Urea Nitrogen 89 mg/dl (7-17)
--- NOTE | 2022-06-30 18:06 | PC.NURSE ---
Addendum entered by Sujatha Loyd RN 06/30/22 18:08: also notified at this time that pt has mittens applied r/t non compliance with medical treatments/care Original Note: critical lab value called to dr khan at 1805. BUN 89 (was 83 this am) CRE 3.20 (was 3.20 this am)
--- NOTE | 2022-06-30 19:16 | PC.NURSE ---
pt diltiazem drip turned down at 1500
--- NOTE | 2022-06-30 23:12 | ECG_ITS ---
APPROVED REPORT Exam: Resting ECG HR:52 bpm ECG Measurements Heart Rate 52 AXES QRSd 85 QRS 11 QT 477 T 64 QTc 456 Conclusion SU[address]ICULAR BRADYCARDIA ST DEVIATION AND MODERATE T-WAVE ABNORMALITY, CONSIDER LATERAL ISCHEMIA [-0.1+ mV T-WAVE IN I/aVL/V5/V6] ABNORMAL ECG UNCONFIRMED REPORT Electronically signed by : Ethan Lewis MD 07/01/2022 21:32:57
[2022-07-01] VITALS (17 sets, daily range): BP systolic 90–142; BP diastolic 41–56; PULSE 59–110; RESP 21–26; TEMP 34.8–37.2; O2SAT 91–96
[2022-07-01 00:06] LABS: POC Glucose,Bedside 124 (70-110)
--- NOTE | 2022-07-01 06:00 | PC.NURSE ---
Pt has been confused and restless at times this shift. Diltiazem gtt placed on standby @ 2248. Pt has been hypothermic. hypothermic/Blankets placed on pt. Last temp was 97.7. Urine output has been poor. call light in place. Pt turned and repositioned. Safety measures in place.
[2022-07-01 06:27] LABS: Chloride 109 mmol/L (98-107)
[2022-07-01 06:28] LABS: Basophils % 0.4 % (0.1-2.0); Eosinophils % 0.1 % (0.1-12.0); Hematocrit 26.3 % (37.0-47.0); Lymphocytes # 0.4 K/mm3 (0.7-4.5); Lymphocytes % 5.8 % (10-50); Mean Corpuscular HGB Conc 30.4 g/dL (31.8-35.4); Mean Corpuscular Hemoglobin 29.5 pg (27.0-31.2); Mean Corpuscular Volume 97.1 fl (81-99); Mean Platelet Volume 9.5 fl (7.4-10.4); Monocytes # 0.2 K/mm3 (0.1-1.0); Monocytes % 2.6 % (1.7-9.3); Neutrophils # 5.6 K/mm3 (1.8-7.8); Platelet Count 201 K/mm3 (142-424); Potassium 4.5 mmoL/L (3.5-5.1); Red Blood Count 2.71 M/mm3 (4.20-5.40); Red Cell Distribution Width 15.4 % (11.5-17.5); Sodium 138 mmol/L (136-145); White Blood Count 6.2 K/mm3 (4.8-10.8)
[2022-07-01 06:30] LABS: Alanine Aminotransferase 10 U/L (12-78); Alkaline Phosphatase 84 U/L (38-126); Aspartate Amino Transferase 31 U/L (14-36); Bilirubin,Total 0.5 mg/dl (0.2-1.3); Creatinine Clearance Estimated 16 mL/min (50-200); Estimated Glomerular Filt Rate 12 ml/min (>60); GFR (African American) 15 ML/MIN (>60); MANUAL DIFFERENTIAL MANUAL DIFFERENTIAL (MANUAL DIFF)
[2022-07-01 06:31] LABS: Albumin Level 2.5 g/dl (3.5-5.0); Albumin/Globulin Ratio 0.9 (1.1-1.8); Anion Gap 19.5 mEq/L (5-15); Calcium 7.3 mg/dl (8.4-10.2); Carbon Dioxide 14 mmol/L (22.0-30.0); Globulin 2.9 g/dL (1.3-3.2); Glucose 115 mg/dl (74-100); Total Protein,Serum 5.4 g/dl (6.3-8.2)
[2022-07-01 06:35] LABS: Blood Urea Nitrogen 91 mg/dl (7-17)
[2022-07-01 06:55] LABS: Lymphocytes % 6 % (10-50); Monocytes % 2 % (2-9); Neutrophils % 92 % (42-76); Total Cells Counted 100
[2022-07-01 06:56] LABS: Platelet Estimate Normal; RBC Morphology Normal
[2022-07-01 07:09] LABS: POC Glucose,Bedside 124 (70-110)
--- NOTE | 2022-07-01 07:33 | EXP.ACUTE.PN ---
Subjective *Date: 07/01/22 *Time: 16:23 Interval history: Patient is increased her oxygen requirement overnight to 6 L given worsening mentation and fluids. Temperature however dropping, on bear hugger. Maintaining appropriate temperature with external warming device. Labs this morning show worsening kidney function. Failed Lasix challenge with less than 100 cc of urine output after receiving 80 mg IV Lasix. Denies nausea. Poor p.o. intake however. No chest pain. Family at bedside overnight had multiple conversations with nurse practitioner. At this point given worsening kidney function they are requesting transfer. Medical Exam Vital signs and Labs for Last 24 Hours: Vital Signs Temp Pulse Pulse Resp BP Pulse Ox 07/01/22 06:00 97.7 F 82 23 98/45 L 95 07/01/22 04:00 96.1 F L 90 23 95/41 L 95 07/01/22 04:00 100 H 07/01/22 02:00 95.3 F L 80 22 104/50 L 94 L 07/01/22 01:00 94.7 F L 60 22 142/56 H 92 L 07/01/22 00:00 95.1 F L 59 L 21 111/49 L 91 L 06/30/22 23:00 55 L 22 117/52 L 93 L 06/30/22 22:00 95.5 F L 67 21 112/47 L 94 L 06/30/22 21:00 80 22 108/54 L 99 06/30/22 20:00 96.5 F L 65 21 96/38 L 92 L 06/30/22 23:05 53 L 06/30/22 23:05 53 L 06/30/22 20:00 60 06/30/22 18:00 68 20 96/55 L 93 L 06/30/22 18:09 67 06/30/22 18:09 67 06/30/22 18:09 96 06/30/22 16:00 83 06/30/22 12:00 90 06/30/22 08:00 70 06/30/22 16:00 97.4 F L 06/30/22 16:00 80 18 95/53 L 97 06/30/22 15:21 78 97 06/30/22 14:00 69 22 92/46 L 100 06/30/22 12:30 96 H 24 94/47 L 96 06/30/22 11:14 93 H 06/30/22 11:14 104 H 06/30/22 11:14 94 L 06/30/22 10:00 106 H 22 107/47 L 100 06/30/22 08:00 97.9 F 06/30/22 08:00 78 22 131/52 L 100 06/30/22 07:40 72 100 Intake and Output 06/30/22 06/30/22 07/01/22 15:59 23:59 07:59 Intake Total 1056 / 3289 731 / 3289 1422 / 1422 Output Total 0 / 530 100 / 530 45 / 45 Balance 1056 / 2759 631 / 2759 1377 / 1377 Intake: Intake, Oral Amount 240 / 240 Intake, Total IV Amount 816 / 3049 731 / 3049 1422 / 1422 0.9 % Sodium Chloride 1,000 ml 613 / 613 1400 / 1400 @ 150 mls/hr IV .Q6H40M [facility] Rx# :[id number] Cefepime HCl 1 gm In 0.9 % 50 / 150 Sodium Chloride 50 ml @ 100 mls /hr IV Q12H [facility] Rx#:[id number] Ringers Solution,Lactated 1,000 816 / 816 ml @ 500 mls/hr IV .Q2H [facility] Rx #:[id number] dilTIAZem HCL 100 mg In 0.9 % 68 / 177 22 Sodium Chloride 100 ml @ 10 mls /hr IV .Q10H [facility] Rx#:[id number] Output: Output, Urine Amount 0 / 130 100 / 130 45 / 45 Other: Number of Unmeasured Voids 0 0 20 Number of Bowel Movements 1 Weight 69.201 kg 72.121 kg Patient Weight 07/01/22 23:59 Weight 72.121 kg Laboratory Results - last 24 hr 06/29/22 05:58: Transferrin 103 L 06/30/22 05:35: POC Glucose 126 H 06/30/22 05:39: Total Counted 100, Neutrophils % (Manual) 87 H, Lymphocytes % (Manual) 9 L, Monocytes % (Manual) 4, Platelet Estimate Normal, RBC Morphology Normal 06/30/22 11:41: POC Glucose 149 H 06/30/22 16:36: POC Glucose 122 H 06/30/22 17:37: Sodium 135 L, Potassium 4.5, Chloride 107, Carbon Dioxide 18 L, Anion Gap 14.5, BUN 89 H, Creatinine 3.20 H, Estimated Creat Clear 18, Estimated GFR 14 L*, Est GFR ( Amer) 17 L*, Glucose 109 H, Calcium 7.5 L 06/30/22 21:49: POC Glucose 124 H 07/01/22 05:32: WBC 6.2, RBC 2.71 L, Hgb 8.0 L D, Hct 26.3 L, MCV 97.1, MCH 29.5, MCHC 30.4 L, RDW 15.4, Plt Count 201, MPV 9.5, Neut % (Auto) 91.0 H, Lymph % (Auto) 5.8 L, [place] % (Auto) 2.6, Eos % (Auto) 0.1, Baso % (Auto) 0.4, Neut # (Auto) 5.6, Lymph # (Auto) 0.4 L, [place] # (Auto) 0.2, Eos # (Auto) 0.0, Baso # (Auto) 0.0, Total Counted 100, Neutrophils % (Manual) 92 H, Lymphocytes % (Manual) 6 L, Monocytes % (Manual) 2, Platelet Estimate Gia
--- NOTE | 2022-07-01 10:14 | EXP.PULM.PN ---
Subjective *Date: 07/01/22 *Time: 10:14 Pulmonology Exam Inpatient Vital signs and Labs for Last 24 Hours: Temp Pulse Resp BP Pulse Ox FiO2 98.5 F 82 23 98/45 L 95 40 07/01/22 08:00 07/01/22 06:00 07/01/22 06:00 07/01/22 06:00 07/01/22 06:00 06/29/22 22:00 Laboratory Results - last 24 hr 06/29/22 05:58: Transferrin 103 L 06/30/22 05:35: POC Glucose 126 H 06/30/22 11:41: POC Glucose 149 H 06/30/22 16:36: POC Glucose 122 H 06/30/22 17:37: Sodium 135 L, Potassium 4.5, Chloride 107, Carbon Dioxide 18 L, Anion Gap 14.5, BUN 89 H, Creatinine 3.20 H, Estimated Creat Clear 18, Estimated GFR 14 L*, Est GFR ( Amer) 17 L*, Glucose 109 H, Calcium 7.5 L 06/30/22 21:49: POC Glucose 124 H 07/01/22 05:32: WBC 6.2, RBC 2.71 L, Hgb 8.0 L D, Hct 26.3 L, MCV 97.1, MCH 29.5, MCHC 30.4 L, RDW 15.4, Plt Count 201, MPV 9.5, Neut % (Auto) 91.0 H, Lymph % (Auto) 5.8 L, [place] % (Auto) 2.6, Eos % (Auto) 0.1, Baso % (Auto) 0.4, Neut # (Auto) 5.6, Lymph # (Auto) 0.4 L, [place] # (Auto) 0.2, Eos # (Auto) 0.0, Baso # (Auto) 0.0, Total Counted 100, Neutrophils % (Manual) 92 H, Lymphocytes % (Manual) 6 L, Monocytes % (Manual) 2, Platelet Estimate Normal, RBC Morphology Normal 07/01/22 05:32: Sodium 138, Potassium 4.5, Chloride 109 H, Carbon Dioxide 14 L, Anion Gap 19.5 H, BUN 91 H, Creatinine 3.70 H, Estimated Creat Clear 16, Estimated GFR 12 L*, Est GFR ( Amer) 15 L*, Glucose 115 H, Calcium 7.3 L, Total Bilirubin 0.5, AST 31, ALT 10 L D, Alkaline Phosphatase 84, Total Protein 5.4 L, Albumin 2.5 L, Globulin 2.9, Albumin/Globulin Ratio 0.9 L 07/01/22 06:55: POC Glucose 124 H I & O for Labs for Last 24 Hours: Intake & Output 06/28/22 06/29/22 06/30/22 07/01/22 23:59 23:59 23:59 23:59 Intake Total 600 / 600 3267 / 3289 1422 / 1422 Output Total 300 / 300 400 / 400 500 / 530 60 / 60 Balance 300 / 300 -400 / -400 2767 / 2759 1362 / 1362 Weight 141 lb 9 oz 141 lb 8.588 oz 152 lb 9 oz 159 lb Microbiology Reports for the Last 24 Hours: Microbiology 06/28/22 16:50 Urine,Clean Catch Urine Culture - Final Escherichia coli Assessment and Plan *Assessment and plan (1) Acute renal failure with oliguria: Status: Acute Category: Medical Code(s): N17.9 - Acute kidney failure, unspecified; R34 - Anuria and oliguria (2) Acute respiratory failure with hypoxia: Status: Acute Category: Medical Code(s): J96.01 - Acute respiratory failure with hypoxia (3) Influenza A: Status: Acute Category: Medical Code(s): J10.1 - Influenza due to other identified influenza virus with other respiratory manifestations (4) UTI (urinary tract infection): Status: Acute Category: Medical Code(s): N39.0 - Urinary tract infection, site not specified (5) Atrial fibrillation: Status: Chronic Qualifiers: Atrial fibrillation type: paroxysmal Qualified Code(s): I48.0 - Paroxysmal atrial fibrillation Category: Medical Code(s): I48.91 - Unspecified atrial fibrillation (6) Healthcare-associated pneumonia: Status: Acute Category: Medical Code(s): J18.9 - Pneumonia, unspecified organism (7) Anemia: Status: Resolved Qualifiers: Anemia type: unspecified type Qualified Code(s): D64.9 - Anemia, unspecified Category: Medical Code(s): D64.9 - Anemia, unspecified (8) Diabetes mellitus: Status: Chronic Qualifiers: Diabetes mellitus type: type 2 Diabetes mellitus residential insulin use: with terminal make up operator use Diabetes mellitus complication status: with neurologic complications Diabetes mellitus complication detail: with polyneuropathy Qualified Code(s): E11.42 - Type 2 diabetes mellitus with diabetic polyneuropathy; Z79.4 - senior living (current) use of insulin Category: Medical Code(s): E11.9 - Type 2 diabetes mellitus without complications (9) Influenza A:
--- NOTE | 2022-07-01 11:18 | XR_ITS ---
FINAL REPORT CLINICAL HISTORY: abdominal pain FINDINGS: A single view of the abdomen was obtained. There is a nonobstructive bowel gas pattern. There are no abnormally dilated loops of small bowel. There is a right hip prosthesis. There are bilateral iliac artery stents. IMPRESSION: No acute process. Reviewed, Interpreted and Dictated by Timo Britt MD Transcribed by Duyen Mcclain Authenticated and [facility]
[2022-07-01 11:33] LABS: ABG Base Excess -13.9 mmol/L (-2.4-2.3); ABG HCO3 14.3 mmhg (22.0-26.0); ABG Oxygen Saturation 93 % (90-100); ABG PCO2 38.5 mmhg (35.0-45.0); ABG PO2 79.1 mmhg (80-100); ABG TCO2 15.5 mmhg (23-27)
[2022-07-01 11:35] LABS: Oxygen 6 %
[2022-07-01 11:36] LABS: ABG PH 7.19 mmol/L (7.35-7.45); Allen's Test acceptable; Source Right Radial
--- NOTE | 2022-07-01 11:37 | DIET.NUTRFU ---
Patient was less responsive today, did not eat breakfast. Did consume 50% lunch yesterday but no dinner. Based on poor intake, tired to place a NG today was was unable. She desatted during procedure. Her prognosis is poor. Provider is going to give her increase dose of lasix again today to see if that helps with kidneys. BUN is 91/cr 3.7, yesterday was 89/3.2. Started on NaBiCarb in dextrose for IVF fluid added some caloric value.Will continue to monitor overall condition.
--- NOTE | 2022-07-01 12:00 | EXP.PULM.PN ---
Subjective *Date: 07/01/22 *Time: 15:24 Interval history: Unable to obtain, patient lethargic only responding to painful stimuli Pulmonology Exam Inpatient Vital signs and Labs for Last 24 Hours: Temp Pulse Resp BP Pulse Ox FiO2 98.5 F 82 23 98/45 L 95 40 07/01/22 08:00 07/01/22 06:00 07/01/22 06:00 07/01/22 06:00 07/01/22 06:00 06/29/22 22:00 Laboratory Results - last 24 hr 06/29/22 05:58: Transferrin 103 L 06/30/22 05:35: POC Glucose 126 H 06/30/22 11:41: POC Glucose 149 H 06/30/22 16:36: POC Glucose 122 H 06/30/22 17:37: Sodium 135 L, Potassium 4.5, Chloride 107, Carbon Dioxide 18 L, Anion Gap 14.5, BUN 89 H, Creatinine 3.20 H, Estimated Creat Clear 18, Estimated GFR 14 L*, Est GFR ( Amer) 17 L*, Glucose 109 H, Calcium 7.5 L 06/30/22 21:49: POC Glucose 124 H 07/01/22 05:32: WBC 6.2, RBC 2.71 L, Hgb 8.0 L D, Hct 26.3 L, MCV 97.1, MCH 29.5, MCHC 30.4 L, RDW 15.4, Plt Count 201, MPV 9.5, Neut % (Auto) 91.0 H, Lymph % (Auto) 5.8 L, [place] % (Auto) 2.6, Eos % (Auto) 0.1, Baso % (Auto) 0.4, Neut # (Auto) 5.6, Lymph # (Auto) 0.4 L, [place] # (Auto) 0.2, Eos # (Auto) 0.0, Baso # (Auto) 0.0, Total Counted 100, Neutrophils % (Manual) 92 H, Lymphocytes % (Manual) 6 L, Monocytes % (Manual) 2, Platelet Estimate Normal, RBC Morphology Normal 07/01/22 05:32: Sodium 138, Potassium 4.5, Chloride 109 H, Carbon Dioxide 14 L, Anion Gap 19.5 H, BUN 91 H, Creatinine 3.70 H, Estimated Creat Clear 16, Estimated GFR 12 L*, Est GFR ( Amer) 15 L*, Glucose 115 H, Calcium 7.3 L, Total Bilirubin 0.5, AST 31, ALT 10 L D, Alkaline Phosphatase 84, Total Protein 5.4 L, Albumin 2.5 L, Globulin 2.9, Albumin/Globulin Ratio 0.9 L 07/01/22 06:55: POC Glucose 124 H 07/01/22 11:18: Specimen Source Right radial, O2 % 6, ABG pH 7.19 L*, ABG pCO2 38.5, ABG pO2 79.1 L, ABG HCO3 14.3 L, ABG Total CO2 15.5 L, ABG O2 Saturation 93, ABG Base Excess -13.9 L, Ziggy Test acceptable I & O for Labs for Last 24 Hours: Intake & Output 06/28/22 06/29/22 06/30/22 07/01/22 23:59 23:59 23:59 23:59 Intake Total 600 / 600 3267 / 3289 1422 / 1422 Output Total 300 / 300 400 / 400 500 / 530 60 / 60 Balance 300 / 300 -400 / -400 2767 / 2759 1362 / 1362 Weight 141 lb 9 oz 141 lb 8.588 oz 152 lb 9 oz 159 lb Microbiology Reports for the Last 24 Hours: Microbiology 06/28/22 16:50 Urine,Clean Catch Urine Culture - Final Escherichia coli Constitutional: Present severe distress Head: Present normocephalic and atraumatic ENT: Present normal exam and mucous membranes moist Neck: Present normal inspection and trachea midline Respiratory: Present respiratory distress and wheezes; Absent able to speak in complete sentences Cardiac: Present S1/S2, Tachycardia and radial pulses present GI: Present soft and distention; Absent tenderness or guarding Rectal (female): Present deferred (female): Present deferred Skin: Present intact; Absent cyanosis or jaundice Neuro: Absent alert, awake or oriented x 3 Extremities: Present normal inspection; Absent clubbing or cyanosis Psychiatric: Present normal affect and cooperative Assessment and Plan *Assessment and plan (1) Acute respiratory failure with hypoxia: Status: Acute Category: Medical Code(s): J96.01 - Acute respiratory failure with hypoxia (2) Influenza A: Status: Acute Category: Medical Code(s): J10.1 - Influenza due to other identified influenza virus with other respiratory manifestations (3) Healthcare-associated pneumonia: Status: Acute Category: Medical Code(s): J18.9 - Pneumonia, unspecified organism Plan Ms. Mauro is a 71-year-old female history CAD, A. fib, diabetes presented on 06/26/2020 with generalized fatigue chest congestion and body aches. Patient was also found to be hypoxic needing oxygen supplementation. Tested positive for flu a and initiated on Tamiflu. No antibiotics in the setting of normal chest x-ray. Chest
--- NOTE | 2022-07-01 13:01 | EXP.CARD.PN ---
Subjective Subjective Date: 07/01/22 Time: 13:01 Principal diagnosis: Flu, NAHUM, A. fib Interval history: 71-year-old white female in bed. Noncommunicative but does moan/groan with movement or pressing on her belly. Unable to perform renal artery duplex yesterday due to patient being uncomfortable and moving along with significant stool noted. She did have a bowel movement overnight. Patient is not taking medication orally so amiodarone has been discontinued. She is currently getting bicarb along with a diuretic challenge of chlorothiazide. Minimal urine output noted. Renal function continues to deteriorate with no option for transferring to tertiary facility. Exam Data for Last 24 hours Vital signs and Labs for Last 24 Hours: Temp Pulse Resp BP Pulse Ox FiO2 98.9 F 99 H 24 107/48 L 96 40 07/01/22 12:00 07/01/22 12:00 07/01/22 12:00 07/01/22 12:00 07/01/22 12:00 06/29/22 22:00 Laboratory Results - last 24 hr 06/30/22 05:35: POC Glucose 126 H 06/30/22 16:36: POC Glucose 122 H 06/30/22 17:37: Sodium 135 L, Potassium 4.5, Chloride 107, Carbon Dioxide 18 L, Anion Gap 14.5, BUN 89 H, Creatinine 3.20 H, Estimated Creat Clear 18, Estimated GFR 14 L*, Est GFR ( Amer) 17 L*, Glucose 109 H, Calcium 7.5 L 06/30/22 21:49: POC Glucose 124 H 07/01/22 05:32: WBC 6.2, RBC 2.71 L, Hgb 8.0 L D, Hct 26.3 L, MCV 97.1, MCH 29.5, MCHC 30.4 L, RDW 15.4, Plt Count 201, MPV 9.5, Neut % (Auto) 91.0 H, Lymph % (Auto) 5.8 L, [place] % (Auto) 2.6, Eos % (Auto) 0.1, Baso % (Auto) 0.4, Neut # (Auto) 5.6, Lymph # (Auto) 0.4 L, [place] # (Auto) 0.2, Eos # (Auto) 0.0, Baso # (Auto) 0.0, Total Counted 100, Neutrophils % (Manual) 92 H, Lymphocytes % (Manual) 6 L, Monocytes % (Manual) 2, Platelet Estimate Normal, RBC Morphology Normal 07/01/22 05:32: Sodium 138, Potassium 4.5, Chloride 109 H, Carbon Dioxide 14 L, Anion Gap 19.5 H, BUN 91 H, Creatinine 3.70 H, Estimated Creat Clear 16, Estimated GFR 12 L*, Est GFR ( Amer) 15 L*, Glucose 115 H, Calcium 7.3 L, Total Bilirubin 0.5, AST 31, ALT 10 L D, Alkaline Phosphatase 84, Total Protein 5.4 L, Albumin 2.5 L, Globulin 2.9, Albumin/Globulin Ratio 0.9 L 07/01/22 06:55: POC Glucose 124 H 07/01/22 11:18: Specimen Source Right radial, O2 % 6, ABG pH 7.19 L*, ABG pCO2 38.5, ABG pO2 79.1 L, ABG HCO3 14.3 L, ABG Total CO2 15.5 L, ABG O2 Saturation 93, ABG Base Excess -13.9 L, Ziggy Test acceptable I & O for Last 24 hours: Intake & Output 06/29/22 06/30/22 07/01/22 07/02/22 11:59 11:59 11:59 11:59 Intake Total 360 / 360 2296 / 2296 2393 / 2393 0 / 0 Output Total 300 / 300 800 / 800 160 / 160 Balance 60 / 60 1496 / 1496 2233 / 2233 0 / 0 Weight 141 lb 8.588 oz 152 lb 9 oz 159 lb Constitutional Constitutional: somnolent *Routine Respiratory Exam Respiratory: Present decreased breath sounds, rhonchi and diminished air movement *Routine Cardiovascular Exam Cardiovascular: Present tachycardia and irregularly irregular *Routine Extremities Exam Extremities: Absent edema *Routine Neurological Exam Neurological: Absent alert Progress Note: A&P Assessment and plan (1) Acute respiratory failure with hypoxia: Status: Acute (2) Influenza A: Status: Acute (3) Healthcare-associated pneumonia: Status: Acute (4) Influenza A: Status: Acute (5) Atrial fibrillation: Status: Chronic (6) CAD (coronary artery disease): Status: Chronic (7) S/P coronary artery bypass graft x 3: Status: Chronic (8) Hypoxia: Status: Acute (9) NAHUM (acute kidney injury): Status: Acute (10) Hyperphosphatemia associated with renal failure: Status: Acute Assessment and Plan Assessment and Plan for All Diagnoses:: 1.? Acute respiratory failure with hypoxia secondary to influenza and possible sepsis with UTI.? Currently on supplemental oxygen, tamiflu, prednisone and IV abx with further treatment per Hospitalist and Client Experience Manager. 2.? A. Fib with RVR.? VQ scan low prob for
--- NOTE | 2022-07-01 16:44 | PC.NURSE ---
[facility] bed control called for update, states no bed available will call with update on bed status again tonight around 2100.
--- NOTE | 2022-07-01 19:29 | EXP.EVENT.NO ---
Advance care planning note: Active diagnosis: Oliguric renal failure, fluid pneumonia, A. fib with RVR, hypotension, type 2 diabetes. The patient's active diagnoses are of sufficient risk that focused discussion on advanced care planning is indicated in order to allow the patient to thoughtfully consider personal goals of care; and, if situations arise that prevent the ability to personally give input, to ensure appropriate representation of their personal desires through documentation or informed surrogate decision makers. Discussion: Persons present and participating in discussion: Discussion: Extensive discussion with family members at bedside including , daughter, granddaughter. Numerous discussions through the afternoon total time as charted below. Discussed patient's progressive renal failure with no treatment options. Discussed goals of care with keeping her comfortable and not letting her suffer. Discussed terminal nature of her kidney failure without treatment and inability to escalate care to tertiary [facility] center for CRRT/dialysis. Transitioned CODE STATUS to DNR in line with patient's and family's wishes to focus on not causing her more pain or discomfort. Time spent: Total time spent [id number] in education and discussion directly related to advance care plannin minutes
[2022-07-01 20:35] LABS: Anion Gap 18.4 mEq/L (5-15); Calcium 6.7 mg/dl (8.4-10.2); Carbon Dioxide 17 mmol/L (22.0-30.0); Chloride 110 mmol/L (98-107); Creatinine Clearance Estimated 15 mL/min (50-200); Estimated Glomerular Filt Rate 11 ml/min (>60); GFR (African American) 13 ML/MIN (>60); Glucose 136 mg/dl (74-100); Potassium 4.4 mmoL/L (3.5-5.1); Sodium 141 mmol/L (136-145)
[2022-07-01 21:16] LABS: Blood Urea Nitrogen 97 mg/dl (7-17)
[2022-07-01 22:04] LABS: POC Glucose,Bedside 151 (70-110)
[2022-07-02] VITALS (24 sets, daily range): BP systolic 76–118; BP diastolic 38–61; PULSE 84–136; RESP 20–33; TEMP 36.3–37.6; O2SAT 90–98; BMI 29.4
--- NOTE | 2022-07-02 05:11 | PC.NURSE ---
Pt grimaces or moans to painful stimuli. No other responses observed. Breathing is more labored. She remains on 6L O2 NC. O2 sats low 90s. Rhonchi noted t/o lung roque. She is currently afib on telemetry. BP stable. Pt turned and repositioned. remains at bedside.
--- NOTE | 2022-07-02 05:18 | PC.NURSE ---
[facility] called for update. No beds available at this time.
[2022-07-02 05:42] LABS: POC Glucose,Bedside 257 (70-110)
--- NOTE | 2022-07-02 07:16 | PC.NURSE ---
[facility] called and updated. No beds available.
--- NOTE | 2022-07-02 07:57 | EXP.ACUTE.PN ---
Subjective *Date: 07/02/22 *Time: 16:40 Interval history: Altered mental status this morning. Daughter at bedside. Patient had 200 cc of urine output this morning but has not had urine through the rest of the day. Afebrile. Blood pressures becoming more hypotensive during the day. Discussed vasopressor support with family, they want to pursue further treatment. Still no transfer options. Patient in acute renal failure in light of mixed renal labs this morning. Remains encephalopathic. Unable to perform review of system Medical Exam Vital signs and Labs for Last 24 Hours: Vital Signs Temp Pulse Pulse Resp BP Pulse Ox 07/02/22 06:56 100 H 07/02/22 06:51 107 H 07/02/22 06:51 102 H 07/02/22 06:51 94 L 07/02/22 06:00 104 H 22 116/53 L 93 L 07/02/22 04:00 97.9 F 101 H 23 118/57 L 93 L 07/02/22 03:48 90 07/02/22 03:48 100 H 07/02/22 02:00 95 H 23 114/60 90 L 07/01/22 23:55 92 H 07/01/22 23:55 85 07/02/22 00:00 97.4 F L 91 H 33 H 115/49 L 93 L 07/01/22 22:00 93 H 24 102/50 L 94 L 07/01/22 20:00 98.0 F 92 H 24 99/46 L 93 L 07/01/22 18:50 95 H 07/01/22 18:50 94 H 07/01/22 18:50 93 L 07/01/22 12:00 94 H 07/01/22 18:00 92 H 24 90/46 L 92 L 07/01/22 16:00 110 H 07/01/22 15:32 98.8 F 07/01/22 14:00 107 H 26 H 91/44 L 93 L 07/01/22 13:14 97 H 07/01/22 13:14 102 H 07/01/22 12:00 98.9 F 07/01/22 12:00 99 H 24 107/48 L 96 07/01/22 10:00 93 H 22 107/51 L 94 L 07/01/22 08:00 96 07/01/22 08:00 98 H 24 91/45 L 92 L 12/01/22 08:00 98.5 F Intake and Output 07/01/22 07/01/22 07/02/22 15:59 23:59 07:59 Intake Total 0 / 1422 746 / 746 Output Total 180 / 240 100 / 100 Balance 0 / 1182 -180 / 1182 646 / 646 Intake: Intake, Oral Amount 0 / 0 Intake, Total IV Amount 746 / 746 Cefepime HCl 1 gm In 0.9 % 36 / 36 Sodium Chloride 50 ml @ 100 mls /hr IV Q12H [facility] Rx#:[id number] Sodium Bicarbonate 150 meq In 710 / 710 Dextrose 5 % in Water 1,000 ml @ 100 mls/hr IV .[id number] [facility] Rx #:[id number] Output: Output, Urine Amount 50 / 110 Output, Urine Amount (Catheter) 130 / 130 100 / 100 Alicia 130 / 130 100 / 100 Other: Number of Unmeasured Voids 0 0 Weight 70.624 kg Patient Weight 07/02/22 23:59 Weight 70.624 kg Laboratory Results - last 24 hr 07/01/22 11:18: Specimen Source Right radial, O2 % 6, ABG pH 7.19 L*, ABG pCO2 38.5, ABG pO2 79.1 L, ABG HCO3 14.3 L, ABG Total CO2 15.5 L, ABG O2 Saturation 93, ABG Base Excess -13.9 L, Ziggy Test acceptable 07/01/22 19:48: Sodium 141, Potassium 4.4, Chloride 110 H, Carbon Dioxide 17 L, Anion Gap 18.4 H, BUN 97 H, Creatinine 4.10 H, Estimated Creat Clear 15, Estimated GFR 11 L*, Est GFR ( Amer) 13 L*, Glucose 136 H, Calcium 6.7 L 07/01/22 21:32: POC Glucose 151 H 07/02/22 05:32: POC Glucose 257 H I & O for Labs for Last 24 Hours: Intake & Output 06/29/22 06/30/22 07/01/22 07/02/22 23:59 23:59 23:59 23:59 Intake Total 3267 / 3289 1422 / 1422 746 / 746 Output Total 400 / 400 500 / 530 240 / 240 100 / 100 Balance -400 / -400 2767 / 2759 1182 / 1182 646 / 646 Weight 64.2 kg 69.201 kg 72.121 kg 70.624 kg Constitutional: Present severe distress, average body habitus, chronically ill appearing and obtunded Head: Present atraumatic and normocephalic ENT: Present normal exam Neck: Present normal inspection Respiratory: Present accessory muscle use, rhonchi, wheezes, crackles and diminished air movement Cardiac: Present Irregularly Regular GI: Present soft and tenderness (diffuse); Absent distention Extremities: Present normal inspection and edema Skin: Present intact; Absent cyanosis or erythema Neuro: Absent oriented x 3 Comment:: No response to painful stimuli or commands today. GCS of 3 Assessment and
--- NOTE | 2022-07-02 07:58 | DIET.NUTRFU ---
Addendum entered by Roxanne Darden, MAVSI, LD 07/02/22 13:00: urine ouput continues to be poor at 500ml 06/30 and 240ml yesterday. Renal continue to be elevated at BUN 110, Cr 3.5. lasix was provided yesterday, no diuretic tx yet today Original Note: RD reviewed meal intake which continues to be no intake secondary to overall condition. Code status was changed to DNR, provider reviewed possible outcomes and declined condition.
--- NOTE | 2022-07-02 09:09 | P.PN_ITS ---
Subjective *Date: 07/02/22 *Time: 09:09 Medical Exam Vital signs and Labs for Last 24 Hours: Vital Signs Temp Pulse Pulse Resp BP Pulse Ox 07/02/22 08:00 98.9 F 07/02/22 06:56 100 H 07/02/22 06:51 107 H 07/02/22 06:51 102 H 07/02/22 06:51 94 L 07/02/22 06:00 104 H 22 116/53 L 93 L 07/02/22 04:00 97.9 F 101 H 23 118/57 L 93 L 07/02/22 03:48 90 07/02/22 03:48 100 H 07/02/22 02:00 95 H 23 114/60 90 L 07/01/22 23:55 92 H 07/01/22 23:55 85 07/02/22 00:00 97.4 F L 91 H 33 H 115/49 L 93 L 07/01/22 22:00 93 H 24 102/50 L 94 L 07/01/22 20:00 98.0 F 92 H 24 99/46 L 93 L 07/01/22 18:50 95 H 07/01/22 18:50 94 H 07/01/22 18:50 93 L 07/01/22 12:00 94 H 07/01/22 18:00 92 H 24 90/46 L 92 L 07/01/22 16:00 110 H 07/01/22 15:32 98.8 F 07/01/22 14:00 107 H 26 H 91/44 L 93 L 07/01/22 13:14 97 H 07/01/22 13:14 102 H 07/01/22 12:00 98.9 F 07/01/22 12:00 99 H 24 107/48 L 96 07/01/22 10:00 93 H 22 107/51 L 94 L Intake and Output 07/01/22 07/02/22 07/02/22 23:59 07:59 15:59 Intake Total 746 / 746 Output Total 180 / 240 100 / 100 Balance -180 / 1182 646 / 646 Intake: Intake, Total IV Amount 746 / 746 Cefepime HCl 1 gm In 0.9 % 36 / 36 Sodium Chloride 50 ml @ 100 mls /hr IV Q12H [facility] Rx#:[id number] Sodium Bicarbonate 150 meq In 710 / 710 Dextrose 5 % in Water 1,000 ml @ 100 mls/hr IV .[id number] [facility] Rx #:[id number] Output: Output, Urine Amount 50 / 110 Output, Urine Amount (Catheter) 130 / 130 100 / 100 Alicia 130 / 130 100 / 100 Other: Number of Unmeasured Voids 0 0 Weight 70.624 kg Patient Weight 07/02/22 23:59 Weight 70.624 kg Laboratory Results - last 24 hr 07/01/22 11:18: Specimen Source Right radial, O2 % 6, ABG pH 7.19 L*, ABG pCO2 38.5, ABG pO2 79.1 L, ABG HCO3 14.3 L, ABG Total CO2 15.5 L, ABG O2 Saturation 93, ABG Base Excess -13.9 L, Ziggy Test acceptable 07/01/22 19:48: Sodium 141, Potassium 4.4, Chloride 110 H, Carbon Dioxide 17 L, Anion Gap 18.4 H, BUN 97 H, Creatinine 4.10 H, Estimated Creat Clear 15, Estimated GFR 11 L*, Est GFR ( Amer) 13 L*, Glucose 136 H, Calcium 6.7 L 07/01/22 21:32: POC Glucose 151 H 07/02/22 05:32: POC Glucose 257 H I & O for Labs for Last 24 Hours: Intake & Output 06/29/22 06/30/22 07/01/22 07/02/22 23:59 23:59 23:59 23:59 Intake Total 3267 / 3289 1422 / 1422 746 / 746 Output Total 400 / 400 500 / 530 240 / 240 100 / 100 Balance -400 / -400 2767 / 2759 1182 / 1182 646 / 646 Weight 64.2 kg 69.201 kg 72.121 kg 70.624 kg The patient's infection will respond to the chosen ABx?: Yes (URINE CULTURE = E COLI SUSCEPTIBLE TO CEFEPIME.) Is the patient receiving the right drug, dose, and route?: Yes Could a more targeted ABx be ordered?: No
[2022-07-02 10:05] LABS: Basophils % 0.2 % (0.1-2.0); Eosinophils % 0.1 % (0.1-12.0); Hematocrit 24.1 % (37.0-47.0); Hemoglobin 7.5 g/dL (12.2-16.2); Lymphocytes # 0.3 K/mm3 (0.7-4.5); Lymphocytes % 3.5 % (10-50); Mean Corpuscular HGB Conc 31.1 g/dL (31.8-35.4); Mean Corpuscular Hemoglobin 28.9 pg (27.0-31.2); Mean Corpuscular Volume 92.9 fl (81-99); Mean Platelet Volume 9.7 fl (7.4-10.4); Monocytes # 0.3 K/mm3 (0.1-1.0); Monocytes % 3.4 % (1.7-9.3); Neutrophils # 8.4 K/mm3 (1.8-7.8); Neutrophils % 92.8 % (37.0-80.0); Platelet Count 171 K/mm3 (142-424); Red Blood Count 2.59 M/mm3 (4.20-5.40); Red Cell Distribution Width 15.6 % (11.5-17.5); White Blood Count 9.1 K/mm3 (4.8-10.8)
--- NOTE | 2022-07-02 10:10 | EXP.PULM.PN ---
Subjective *Date: 07/02/22 *Time: 13:15 Interval history: Patient lethargic only responding to painful stimuli. Pulmonology Exam Inpatient Vital signs and Labs for Last 24 Hours: Temp Pulse Resp BP Pulse Ox FiO2 98.9 F 100 H 22 116/53 L 94 L 40 07/02/22 08:00 07/02/22 06:56 07/02/22 06:00 07/02/22 06:00 07/02/22 06:51 06/29/22 22:00 Laboratory Results - last 24 hr 07/01/22 11:18: Specimen Source Right radial, O2 % 6, ABG pH 7.19 L*, ABG pCO2 38.5, ABG pO2 79.1 L, ABG HCO3 14.3 L, ABG Total CO2 15.5 L, ABG O2 Saturation 93, ABG Base Excess -13.9 L, Ziggy Test acceptable 07/01/22 19:48: Sodium 141, Potassium 4.4, Chloride 110 H, Carbon Dioxide 17 L, Anion Gap 18.4 H, BUN 97 H, Creatinine 4.10 H, Estimated Creat Clear 15, Estimated GFR 11 L*, Est GFR ( Amer) 13 L*, Glucose 136 H, Calcium 6.7 L 07/01/22 21:32: POC Glucose 151 H 07/02/22 05:32: POC Glucose 257 H I & O for Labs for Last 24 Hours: Intake & Output 06/29/22 06/30/22 07/01/22 07/02/22 23:59 23:59 23:59 23:59 Intake Total 3267 / 3289 1422 / 1422 746 / 746 Output Total 400 / 400 500 / 530 240 / 240 100 / 100 Balance -400 / -400 2767 / 2759 1182 / 1182 646 / 646 Weight 141 lb 8.588 oz 152 lb 9 oz 159 lb 155 lb 11.2 oz Microbiology Reports for the Last 24 Hours: Microbiology 06/28/22 16:50 Urine,Clean Catch Urine Culture - Final Escherichia coli Constitutional: Present severe distress Head: Present normocephalic and atraumatic ENT: Present normal exam and mucous membranes moist Neck: Present normal inspection and trachea midline Respiratory: Present respiratory distress and wheezes; Absent able to speak in complete sentences Cardiac: Present S1/S2, Tachycardia and radial pulses present GI: Present soft and distention; Absent tenderness or guarding Rectal (female): Present deferred (female): Present deferred Skin: Present intact; Absent cyanosis or jaundice Neuro: Absent alert, awake or oriented x 3 Extremities: Present normal inspection; Absent clubbing or cyanosis Psychiatric: Present normal affect and cooperative Assessment and Plan *Assessment and plan (1) Acute respiratory failure with hypoxia: Status: Acute Category: Medical Code(s): J96.01 - Acute respiratory failure with hypoxia (2) Influenza A: Status: Acute Category: Medical Code(s): J10.1 - Influenza due to other identified influenza virus with other respiratory manifestations (3) Healthcare-associated pneumonia: Status: Acute Category: Medical Code(s): J18.9 - Pneumonia, unspecified organism Plan Ms. Mauro is a 71-year-old female history CAD, A. fib, diabetes presented on 06/26/2020 with generalized fatigue chest congestion and body aches. Patient was also found to be hypoxic needing oxygen supplementation. Tested positive for flu a and initiated on Tamiflu. No antibiotics in the setting of normal chest x-ray. Chest x-ray admission reviewed, no dense consolidation. Concern for right lower lobe airspace disease. Leukopenia on admission, improving today at 5.3. Neutrophil predominant. VBG did not show any evidence of hypercarbic respiratory failure. Concern for metabolic acidosis in the setting of renal dysfunction. Urine culture positive for E. coli. Echo on this admission LV concentric hypertrophy EF 55% grade 2 diastolic dysfunction. RV mildly enlarged with normal contractility. Worsening oxygen requirement since admission, currently 15 L via nonrebreather and pulmonary was consulted Needing 2- L via NC on admission. Patient also was initiated on heparin drip given concerning for pulmonary embolism, VQ scan low probability for PE. ABG showed predominant metabolic acidosis likely from renal dysfunction. Chest x-ray from 06/30/22, improving right lower lobe pulmonary infiltrates. Stable left lung infiltrates. Concerning for volume overload. Interval Update: Stable leukocytosis. Cont
[2022-07-02 10:57] LABS: MANUAL DIFFERENTIAL MANUAL DIFFERENTIAL (MANUAL DIFF)
[2022-07-02 11:25] LABS: Chloride 109 mmol/L (98-107); Potassium 4.6 mmoL/L (3.5-5.1); Sodium 143 mmol/L (136-145)
[2022-07-02 11:28] LABS: Alanine Aminotransferase 10 U/L (12-78); Albumin Level 2.3 g/dl (3.5-5.0); Albumin/Globulin Ratio 0.9 (1.1-1.8); Alkaline Phosphatase 86 U/L (38-126); Anion Gap 21.6 mEq/L (5-15); Aspartate Amino Transferase 39 U/L (14-36); Bilirubin,Total 0.4 mg/dl (0.2-1.3); Calcium 7.1 mg/dl (8.4-10.2); Carbon Dioxide 17 mmol/L (22.0-30.0); Globulin 2.6 g/dL (1.3-3.2); Glucose 210 mg/dl (74-100); Total Protein,Serum 4.9 g/dl (6.3-8.2)
[2022-07-02 12:21] LABS: Creatinine Clearance Estimated 17 mL/min (50-200); Estimated Glomerular Filt Rate 13 ml/min (>60); GFR (African American) 16 ML/MIN (>60)
[2022-07-02 12:22] LABS: Blood Urea Nitrogen 110 mg/dl (7-17)
[2022-07-02 14:25] LABS: Lymphocytes % 3 % (10-50); Monocytes % 2 % (2-9); Neutrophils % 95 % (42-76); Platelet Estimate Normal; RBC Morphology Normal; Total Cells Counted 100
[2022-07-02 17:39] LABS: POC Glucose,Bedside 252 (70-110)
[2022-07-02 18:25] LABS: Chloride 105 mmol/L (98-107); Sodium 141 mmol/L (136-145)
[2022-07-02 18:26] LABS: Potassium 4.4 mmoL/L (3.5-5.1)
[2022-07-02 18:29] LABS: Anion Gap 15.4 mEq/L (5-15); Calcium 7.2 mg/dl (8.4-10.2); Carbon Dioxide 25 mmol/L (22.0-30.0); Glucose 233 mg/dl (74-100)
[2022-07-02 18:36] LABS: Creatinine Clearance Estimated 13 mL/min (50-200); Estimated Glomerular Filt Rate 10 ml/min (>60); GFR (African American) 12 ML/MIN (>60)
[2022-07-02 18:40] LABS: Blood Urea Nitrogen 109 mg/dl (7-17)
--- NOTE | 2022-07-02 19:21 | XR_ITS ---
PROCEDURE INFORMATION: Exam: XR Chest Exam date and time: 07/02/2022 7:36 PM Age: 71 years old Clinical indication: Device placement; Ett placement (vent status); Additional info: Intabation TECHNIQUE: Imaging protocol: Radiologic exam of the chest. Views: 1 view. COMPARISON: CR XR CHEST PORTABLE 06/30/2022 12:56 PM FINDINGS: Tubes, catheters and devices: Endotracheal tube tip 3.9 cm above the claudia. Numerous extrinsic EKG leads bundle over the lower chest. Lungs: Mildly decreased pulmonary expansion. Mild central vascular congestion. Bilateral interstitial and alveolar opacities in the mid and basilar lung roque suggestive of edema or pneumonia are mildly increased although decreased pulmonary expansion and elements of atelectasis may be contributing. Pleural spaces: Slight costophrenic angle blunting on the right, possible small right basilar effusion. No pneumothorax. Heart/Mediastinum: Heart size normal. No tracheal/mediastinal shift. Bones/joints: Prior median sternotomy. Prior right proximal humeral fixation without gross hardware complication. No acute osseous abnormalities are identified. Osteopenia. Moderate thoracic spondylosis. IMPRESSION: 1. Endotracheal tube tip 3.9 cm above the claudia. 2. Slightly decreased pulmonary expansion and slightly increased interstitial/alveolar opacities.
--- NOTE | 2022-07-02 19:36 | EXP.EVENT.NO ---
Patient intubated for respiratory stabilization to allow transfer to tertiary care center. [place] scope size 3 used. Given hypotension, RSI not utilized. Given encephalopathic nature, patient did not require further sedation. Intubated on second attempt after suction of copious secretions from oropharynx and upper airway. 7.5 ET tube inserted with minimal difficulty to a depth of 19 cm at gumline. Proceed with sedation utilizing Versed and fentanyl. Initiated on vent settings as follows: AC, rate of 20, 350 tidal volume, high percent FiO2. Will obtain a blood gas in 30 minutes. Portable x-ray obtained, ET tube tip 4 cm above claudia.
[2022-07-02 19:53] LABS: ABG Base Excess -9.1 mmol/L (-2.4-2.3); ABG HCO3 21.8 mmhg (22.0-26.0); ABG Oxygen Saturation 90 % (90-100); ABG PO2 77.1 mmhg (80-100); ABG TCO2 24.4 mmhg (23-27)
[2022-07-02 19:54] LABS: Allen's Test Patient Unable; Oxygen 100% %; PEEP 5; Source Left Brachial; Tidal Volume 350; Vent Rate 20
--- NOTE | 2022-07-02 20:14 | ECG_ITS ---
APPROVED REPORT Exam: Resting ECG HR:140 bpm ECG Measurements Heart Rate 140 AXES QRSd 105 QRS 59 QT 330 T 91 QTc 411 Conclusion ATRIAL FLUTTER/TACHYCARDIA WITH RAPID VENTRICULAR RESPONSE POSSIBLE RIGHT VENTRICULAR CONDUCTION DELAY [RSR (QR) IN V1/V2] ST ELEVATION, CONSIDER INFERIOR INJURY versus tachycardia/rate effect Electronically signed by : Ethan Lewis MD 07/03/2022 12:11:46
--- NOTE | 2022-07-02 20:18 | PC.NURSE ---
pt restless and HR elevated into 150's, increased midazolam drip to 0.03mcg/kg/min and fentanyl to 50mcg/hr, levophed at 4mcg/min and bp 95/47 (63), HR now in 130's with sedation titration 7.5 OETT placed at shift change: vent settings changed to 100%FIO2, 420 tidal volume, rate 24, peep 5 after abg results back ekg read a-flutter in 130-140's; getting another IV via ultra sound and PAMELLA Duncan placing orders for margotho william day DIXIE Scherer calling report to [facility], pt will be transported [place]
--- NOTE | 2022-07-02 20:25 | EXP.DC.SUM ---
General Admission date:: 06/26/22 Discharge date: 07/02/22 HPI HPI HPI: This is a 71-year-old female with past medical history of CAD, atrial fibrillation, diabetes who presents emergency department today with 5 days of generalized malaise fatigue, cough, congestion, generalized body aches. She reports the generalized symptoms but denies any overt shortness of breath. She does report being at a large Thanksgiving get together but does not know if anybody had respiratory illnesses. She is COVID and flu vaccinated. Emergency department work-up significant for flu a positive. She also has a mild NAHUM with creatinine of 2.3 with baseline of 1.8. She is hypoxic into the mid 80s requiring 2 L nasal cannula and is oxygenating well. Chest x-ray without infiltrates. Due to the above-mentioned complaint should be admitted to the hospital service for further evaluation and management. Hospital Course Hospital Course Hospital Course: Ms. Mauro is a 71-year-old female with a past medical history that is positive for CAD, Atrial Fibrillation, COPD, Chronic Tobacco abuse, CKD prior to this hospitalizaiton most recent creatinine in 1.8 range. She presented to [facility] due to 5-day history of generalized malaise, body aches and productive cough. She was noted to be hypoxic on admission with oxygen saturations in the 80 range and required oxygen, which she did not require at home. She was vaccinated against Flu and Covid, however she tested positive for Flu. She was admitted with Acute Hypoxic Respiratory Failure, Flu and NAHUM. During her hospitalization she had specialist of Pulmonary and Cardiology follow her. She was noted to have concern for lung consolidation and UTI and was implemented on antibiotics. She had episodes of A-fib with RVR and was given antiarrythmic and anticoagulation with Cardiology following. She went into Oliguric Acute on Chronic CKD. She was given Fluid, Diuretic challenges and Sodium Bicarbonate in setting of NAHUM on CKD with metabolic acidosis with minimal improvement. She continued to decline. Family was fully informed of her decline daily. Attempts were made at multiple facilities to transfer the patient for Nephrology evaluation per family continued request. On 07/02/22 she was accepted to [facility]. Prior to transfer the patient went into Acute Respiratory Distress and was intubated. She also went into A-flutter with a rate of 130's. She was placed on Amiodarone. She is currently stable on the ventilator, but is requiring pressor support. The patient will be transferred to [facility] by air. Family are at bedside and has been fully informed of the patient's care and has verbalized understanding and agreement with the plan of care. Rounded on patient after nurse practitioner. Personally examined and interviewed patient. Agree with exam findings and care plan as documented. Exam Data for Last 24 hours Vital signs and Labs for Last 24 Hours: Temp Pulse Resp BP Pulse Ox FiO2 99.3 F 84 26 H 100/41 L 97 100 07/02/22 16:00 07/02/22 18:36 07/02/22 19:35 07/02/22 18:00 07/02/22 19:35 07/02/22 19:35 Laboratory Results - last 24 hr 07/01/22 19:48: Sodium 141, Potassium 4.4, Chloride 110 H, Carbon Dioxide 17 L, Anion Gap 18.4 H, BUN 97 H, Creatinine 4.10 H, Estimated Creat Clear 15, Estimated GFR 11 L*, Est GFR ( Amer) 13 L*, Glucose 136 H, Calcium 6.7 L 07/01/22 21:32: POC Glucose 151 H 07/02/22 05:32: POC Glucose 257 H 07/02/22 09:45: WBC 9.1 D, RBC 2.59 L, Hgb 7.5 L, Hct 24.1 L, MCV 92.9, MCH 28.9, MCHC 31.1 L, RDW 15.6, Plt Count 171, MPV 9.7, Neut % (Auto) 92.8 H, Lymph % (Auto) 3.5 L, [place] % (Auto) 3.4, Eos % (Auto) 0.1, Baso % (Auto) 0.2, Neut # (Auto) 8.4 H, Lymph # (Auto) 0.3 L, [place] # (Auto) 0.3, Eos # (Auto) 0.0, Baso # (Auto) 0.0, Total Counted 100, Neutrophils % (Manual) 95 H, Lymphocytes % (Manual) 3 L, Monocytes % (Manual) 2, Platelet Estimate Normal, RB
--- NOTE | 2022-07-02 20:28 | PC.NURSE ---
colten BREWER obtained 20G IV USG in [facility], will start amio drip per protocol
--- NOTE | 2022-07-02 20:39 | PC.NURSE ---
house has to go to ER to get amiodarone bolus and drip, will start as soon as get medication
--- NOTE | 2022-07-02 20:41 | PC.NURSE ---
increased levophed to 8mcg/min, bp 83/49 (64)
[2022-07-02 20:59] LABS: ABG Base Excess -6.5 mmol/L (-2.4-2.3); ABG HCO3 21.4 mmhg (22.0-26.0); ABG Oxygen Saturation 91 % (90-100); ABG PH 7.21 mmol/L (7.35-7.45); ABG PO2 67.5 mmhg (80-100); ABG TCO2 23.1 mmhg (23-27)
[2022-07-02 21:00] LABS: Oxygen 100 %; PEEP 5; Source L BRACHIAL; Tidal Volume 420; Vent Rate 24
[2022-07-02 21:02] LABS: ABG PCO2 85.2 mmhg (35.0-45.0); ABG PH 7.03 mmol/L (7.35-7.45)
[2022-07-02 21:02] LABS: ABG PCO2 55.4 mmhg (35.0-45.0)
[2022-07-02 21:04] LABS: POC Glucose,Bedside 274 (70-110)
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
--- NOTE | 2022-07-02 21:52 | PC.NURSE ---
[facility] has accepted flight. ETA of 10 at this time
--- NOTE | 2022-07-02 21:56 | PC.NURSE ---
ETA 10 minutes until flight transport gets here to transport pt to [facility], notified pt's daughter pt would leaving shortly
--- NOTE | 2022-07-02 22:30 | PC.NURSE ---
placed NGT prior to pt transport at 55cm, dark brown liquid coming out, clamped for travel
--- NOTE | 2022-07-02 22:52 | PC.NURSE ---
pt being transported via helicopter to [facility]
--- NOTE | 2022-07-02 22:58 | PC.NURSE ---
PT LEFT FLOOR VIA STRETCHER WITH [facility] @ 22:50
== END 2022-07-02 22:56 | disposition short-term general hospital (02) | DRG 208 ==
LOC: ER 19:23 → 2ND 20:22
PROVIDERS: Internal Medicine Pulmonary Disease; Nurse Practitioner Acute Care; Admitting Provider Student in an Organized Health Care Education/Training Program; Emergency Provider Emergency Medicine; PCP Internal Medicine Adolescent Medicine; Visit Provider Internal Medicine Adolescent Medicine
DX: J10.1 Influenza due to other identified influenza virus with other respiratory manifestations (principal); J96.01 Acute respiratory failure with hypoxia; N17.9 Acute kidney failure, unspecified; N39.0 Urinary tract infection, site not specified; E87.20 Acidosis, unspecified; E87.3 Alkalosis; G93.40 Encephalopathy, unspecified; I48.20 Chronic atrial fibrillation, unspecified; F17.210 Nicotine dependence, cigarettes, uncomplicated; Z95.5 Presence of coronary angioplasty implant and graft; E11.42 Type 2 diabetes mellitus with diabetic polyneuropathy; Z79.4 Long term (current) use of insulin; I25.10 Atherosclerotic heart disease of native coronary artery without angina pectoris; I48.0 Paroxysmal atrial fibrillation; Z95.1 Presence of aortocoronary bypass graft; J18.9 Pneumonia, unspecified organism; N18.9 Chronic kidney disease, unspecified; I12.9 Hypertensive chronic kidney disease with stage 1 through stage 4 chronic kidney disease, or unspecified chronic kidney disease; D63.1 Anemia in chronic kidney disease; B96.20 Unspecified Escherichia coli [E. coli] as the cause of diseases classified elsewhere; E11.22 Type 2 diabetes mellitus with diabetic chronic kidney disease; E83.39 Other disorders of phosphorus metabolism
CPT/HCPCS: 31500; 94002; 36415; 71045; 74018; 76770; 78582; 80048; 80053; 81001; 82272; 82728; 82803; 82962; 83540; 83550; 83735; 84100; 84145; 84466; 85007; 85025; 85730; 86140; 87070; 87086; 87088; 87186; 87205; 93005; 93306; 94640; 94660; 94667; 94760; 94761; 99285; A9540; A9567; C9803; G0328; J0282; J0692; J0696; J1205; J2405; J7060; U0003; U0005